=== PATIENT | male | born 1975 | race Caucasian/White ===

== ENCOUNTER 2016-09-17 20:38 | Emergency (ER) | payer MEDICARE, MEDICAID, OTHER ==
[~2016-09-17] VITALS: Ht 182.9 cm; Wt 110.0 kg
[~2016-09-17 20:38] MED LIST: AMBI10TA PO; LEVO.2 PO; PRAV40 PO; SERT100 PO; TRAZ50TA78 PO; XANA2TAB2 PO
[2016-09-17 20:55] VITALS: BP 130/92; PULSE 80; RESP 18; TEMP 99; O2SAT 96
--- NOTE | 2016-09-17 21:15 | PD ---
HPI Chief Complaint: Psychiatric Symptoms Time Seen by Provider: 20:56 Travel History International Travel<30 days: No Contact w/Intl Traveler<30days: No History of Present Illness HPI Patient is a 41-year-old male with history of paranoid schizophrenia, presents to ER with c/o of homicidal ideations. Patient reports that his neighbors is driving him crazy, reports that they keep calling the automobile travel club counselor on him for "noise" as they keep saying that "my music is too loud." Reports that he cannot leave his home as his neighbors keep bothering him. Patient reports that they drove him to call the suicidal hotline today as he has been feeling suicidal and has been cutting himself on his arms. Reports that he has homicidal ideations and wants to kill his neighbors. PFSH Past Medical History Asthma: Yes Anxiety: Yes Depression: Yes Cancer: Yes (THYROID) Cardiovascular Problems: No Diabetes: No Diminished Hearing: No Endocrine: Yes Genitourinary: No Immune Disorder: No Musculoskeletal: Yes Neurologic: Yes Psychiatric: Yes (PARANOID SCHIZO) Reproductive: No Respiratory: Yes Radiation Therapy: Yes Schizophrenia: Yes Thyroid Disease: Yes (THYROIDECTOMY FOR THYROID CANCER) Past Surgical History Endocrine Surgery: Yes (THYROIDECTOMY FOR CANCER) Other Surgery: Yes (THYROIDECTOMY 2007) Social History Alcohol Use: Yes (OCCASIONALLY ) Tobacco Use: Yes Substance Use: Yes Allergies-Medications (Allergen,Severity, Reaction): Coded Allergies: Haldol (Verified Allergy, Intermediate, Joint Pain, 01/13/16) Reported Meds & Prescriptions Reported Meds & Active Scripts Active Synthroid (Levothyroxine Sodium) 200 Mcg Tab 200 Mcg PO DAILY@0600 7 Days Pravastatin Sodium 40 Mg Tab 40 Mg PO HS 7 Days Desyrel (Trazodone HCl) 50 Mg Tab 300 Mg PO HS 7 Days Zoloft (Sertraline HCl) 100 Mg Tab 100 Mg PO DAILY 7 Days Reported Ambien (Zolpidem Tartrate) 10 Mg Tab 10 Mg PO HS Xanax 2 mg (Alprazolam) Alprazolam 2 mg Tab 1 Tab PO Q6H PRN Review of Systems General / Constitutional: No: Fever Eyes: No: Visual changes HENT: No: Headaches Cardiovascular: No: Chest Pain or Discomfort Respiratory: No: Shortness of Breath Gastrointestinal: No: Abdominal Pain Genitourinary: No: Dysuria Musculoskeletal: No: Pain Skin: No Rash Neurologic: No: Weakness Psychiatric: Positive: Depression, Suicidal Ideations, Homicidal Ideation Endocrine: No: Polydipsia Hematologic/Lymphatic: No: Easy Bruising Physical Exam Narrative GENERAL: nad, nontoxic SKIN: Focused skin assessment warm/dry. HEAD: Atraumatic. Normocephalic. EYES: Pupils equal and round. No scleral icterus. No injection or drainage. ENT: No nasal bleeding or discharge. Mucous membranes pink and moist. NECK: Trachea midline. No JVD. CARDIOVASCULAR: Regular rate and rhythm. No murmur appreciated. RESPIRATORY: No accessory muscle use. Clear to auscultation. Breath sounds equal bilaterally. GASTROINTESTINAL: Abdomen soft, non-tender, nondistended. Hepatic and splenic margins not palpable. MUSCULOSKELETAL: No obvious deformities. No clubbing. No cyanosis. No edema. NEUROLOGICAL: Awake and alert. No obvious cranial nerve deficits. Motor grossly within normal limits. Normal speech. PSYCHIATRIC: Appropriate mood and affect; positive for suicidal as well as homicidal ideations Data Data Orders Complete Blood Count With Diff (09/17/16 21:00) Comprehensive Metabolic Panel (09/17/16 21:00) Psych Screen (09/17/16 21:00) Drug Screen, Random Urine (09/17/16 21:00) MDM Medical Decision Making Medical Screen Exam Complete: Yes Emergency Medical Condition: Yes Differential Diagnosis Paranoid schizophrenia, suicidal ideations, homicidal ideations, anxiety disorder Narrative Course Patient is a 41 year old male who presents to ER with complaints of suicidal as well as homicidal ideations. Patient reports that his neighbors are driving him crazy, reports that they keep reporting him to the automobile travel club counselor as they say he is to loud. He reports that he wants to kill them and he has been suppressing his anger by cutting himself. Patient contracts for safety while in the ER. Emma Beltran DO September 17, 2016 21:15
[2016-09-17 22:00] LABS: AMPHETAMINE, URINE NEG (NEG); BARBITURATES, URINE NEG (NEG); COCAINE, URINE NEG (NEG)
[2016-09-17 22:19] VITALS: BP 146/91; PULSE 60; RESP 16; O2SAT 97
[2016-09-17 23:07] LABS: AUTOMATED NEUTROPHIL # 5.3 TH/MM3 (1.8-7.7); BASOPHIL % 0.5 % (0.0-2.0); EOSINOPHIL # 0.1 TH/MM3 (0-0.4); EOSINOPHIL % 1.1 % (0.0-4.0); HEMATOCRIT 43.9 % (39.0-51.0); HEMO FLAGS DIFF FINAL; LYMPH % 17.7 % (9.0-44.0); LYMPHOCYTE # 1.3 TH/MM3 (1.0-4.8); MEAN CELL VOLUME 91.7 FL (80.0-100.0); MEAN CORPUSCULAR HEMOGLOBIN 30.2 PG (27.0-34.0); MEAN CORPUSCULAR HGB CONC 32.9 % (32.0-36.0); MONO % 8.5 % (0.0-8.0); NEUT % 72.2 % (16.0-70.0); PLATELET COUNT 251 TH/MM3 (150-450); RED BLOOD COUNT 4.79 MIL/MM3 (4.50-5.90); RED CELL DISTRIBUTION WIDTH 15.1 % (11.6-17.2); WHITE BLOOD COUNT 7.3 TH/MM3 (4.0-11.0)
[2016-09-17 23:36] LABS: ANION GAP 9 MEQ/L (5-15); BICARBONATE 30.6 MEQ/L (21.0-32.0); BLOOD UREA NITROGEN 20 MG/DL (7-18); CHLORIDE 103 MEQ/L (98-107); GLOMERULAR FILTRATION RATE 48 ML/MIN (>89); POTASSIUM 3.7 MEQ/L (3.5-5.1); SODIUM (NA) 143 MEQ/L (136-145)
[2016-09-17 23:39] LABS: ALKALINE PHOSPHATASE 74 U/L (45-117); ALT (GPT) 27 U/L (12-78); AST (GOT) 25 U/L (15-37); TOTAL BILIRUBIN ADULT 0.4 MG/DL (0.2-1.0)
[2016-09-18 00:13] VITALS: BP 136/81; PULSE 63; RESP 18; O2SAT 96
[2016-09-18] MEDS ORDERED: OLANZapine IM 10 MG VIAL IM ONE (00:45)
[2016-09-18 02:19] VITALS: BP 99/74; PULSE 58; RESP 17; O2SAT 97
[2016-09-18 06:38] VITALS: BP 111/60; PULSE 51; RESP 18; O2SAT 96
[2016-09-18 10:00] VITALS: BP 122/78; PULSE 60; RESP 18
[2016-09-18 14:35] VITALS: BP 114/77; PULSE 55; RESP 18
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
[2016-09-18 16:12] VITALS: BP 122/78; PULSE 60; RESP 18
== END 2016-09-18 18:02 | disposition home or self-care (01) ==
LOC: NED 20:38 → NEPJ 09-18 18:02
DX: F43.10 Post-traumatic stress disorder, unspecified (principal); F41.9 Anxiety disorder, unspecified; F20.3 Undifferentiated schizophrenia; Z72.0 Tobacco use; Z87.09 Personal history of other diseases of the respiratory system; Z86.59 Personal history of other mental and behavioral disorders; Z85.850 Personal history of malignant neoplasm of thyroid; Z87.39 Personal history of other diseases of the musculoskeletal system and connective tissue; Z86.69 Personal history of other diseases of the nervous system and sense organs
CPT/HCPCS: 80053; 80307; 85025; 96372

== ENCOUNTER 2016-10-24 19:03 | Inpatient (IN) | payer OTHER, MEDICARE ==
[~2016-10-24] VITALS: Ht 177.8 cm; Wt 100.0 kg
[2016-10-24 19:06] VITALS: BP 127/87; PULSE 89; RESP 16; TEMP 98.7; O2SAT 99
--- NOTE | 2016-10-24 19:31 | PD ---
Physical Exam Time Seen by Provider: 19:29 Narrative 41yo M c/o mental illness and not taking meds. Denies SI or HI. Has not been eating, sleeping, and has been pacing around the house. Hasn't left the house in weeks. Patient seen in triage. VS reviewed. Awaiting bed placement. Data Data Last Documented VS Vital Signs Date Time Temp Pulse Resp B/P Pulse Ox O2 Delivery O2 Flow Rate FiO2 10/24/16 19:06 98.7 89 16 127/87 99 Room Air MDM Supervised Visit with COURTNEY: Ewa Hoyt Oct 24, 2016 19:31
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
[2016-10-24 22:54] LABS: AUTOMATED NEUTROPHIL # 8.1 TH/MM3 (1.8-7.7); BASOPHIL # 0.1 TH/MM3 (0-0.2); BASOPHIL % 0.9 % (0.0-2.0); EOSINOPHIL # 0.2 TH/MM3 (0-0.4); EOSINOPHIL % 1.9 % (0.0-4.0); HEMATOCRIT 47.7 % (39.0-51.0); HEMO FLAGS DIFF FINAL; LYMPH % 18.2 % (9.0-44.0); MEAN CELL VOLUME 89.5 FL (80.0-100.0); MEAN CORPUSCULAR HEMOGLOBIN 30.5 PG (27.0-34.0); MEAN CORPUSCULAR HGB CONC 34.1 % (32.0-36.0); MONO % 6.6 % (0.0-8.0); NEUT % 72.4 % (16.0-70.0); PLATELET COUNT 226 TH/MM3 (150-450); RED BLOOD COUNT 5.33 MIL/MM3 (4.50-5.90); WHITE BLOOD COUNT 11.2 TH/MM3 (4.0-11.0)
[2016-10-24 23:20] LABS: ALKALINE PHOSPHATASE 92 U/L (45-117); FREE T4 0.28 NG/DL (0.76-1.46); TOTAL BILIRUBIN ADULT 0.4 MG/DL (0.2-1.0)
[2016-10-24 23:22] LABS: BLOOD, URINE SMALL (NEG); COMMENT (UR) CULT NOT INDICATED; CULTURE IF INDICATED CULT NOT INDICATED; GLUCOSE,URINE NEG (NEG); KETONE, URINE NEG (NEG); MUCUS URINE FEW /lpf (OCC); NITRITE,URINE NEG (NEG); URINE COLOR YELLOW (YELLW/STRAW)
[2016-10-24 23:23] LABS: AMPHETAMINE, URINE NEG (NEG); BARBITURATES, URINE NEG (NEG); COCAINE, URINE NEG (NEG)
[2016-10-24 23:57] LABS: ANION GAP 9 MEQ/L (5-15); AST (GOT) 33 U/L (15-37); BLOOD UREA NITROGEN 20 MG/DL (7-18); CHLORIDE 100 MEQ/L (98-107); GLOMERULAR FILTRATION RATE 50 ML/MIN (>89); SODIUM (NA) 135 MEQ/L (136-145)
[2016-10-25 00:02] LABS: ACETAMINOPHEN LESS THAN 2.0 MCG/ML (10.0-30.0); POTASSIUM 4.3 MEQ/L (3.5-5.1)
[2016-10-25 00:19] LABS: ALT (GPT) 80 U/L (12-78)
[2016-10-25] MEDS ORDERED: LEVOTHYROXINE SODIUM 200 MCG TAB PO ONE (01:00)
[2016-10-25 10:50] VITALS: BP 147/99; PULSE 54; RESP 18; TEMP 98.6; O2SAT 96
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
[2016-10-25] MEDS ORDERED: ALUMINUM/MAGNESIUM/SIMETH 30 ML CUP PO PRN (17:15)
[2016-10-25] MEDS ORDERED: MAGNESIUM HYDROXIDE SUSP 30 ML CUP PO PRN (17:15)
[2016-10-25] MEDS: ACETAMINOPHEN 325 MG TAB PO PRN (17:46)
[2016-10-25 18:10] VITALS: BP 130/94; PULSE 68; RESP 18; TEMP 97.5; O2SAT 98
[2016-10-25] MEDS ORDERED: LOVA40TA PO (18:31)
[2016-10-25] MEDS ORDERED: DIAZ5TAB PO (18:31)
[2016-10-25] MEDS ORDERED: ZETI10TA5 PO (18:31)
[2016-10-25] MEDS ORDERED: SERT-129 PO (18:31)
[2016-10-25] MEDS ORDERED: LEVO200T4 PO (18:31)
[2016-10-25] MEDS ORDERED: SYMB80AE INH (18:31)
[2016-10-25] MEDS ORDERED: ALBUAER3 INH (18:31)
[2016-10-25] MEDS ORDERED: ALPR2TAB3 PO (18:31)
[2016-10-26 06:01] VITALS: BP 126/87; PULSE 59; RESP 16; TEMP 98.1; O2SAT 97
[2016-10-26 10:09] LABS: ANION GAP 11 MEQ/L (5-15); BLOOD UREA NITROGEN 18 MG/DL (7-18); CHLORIDE 96 MEQ/L (98-107); GLOMERULAR FILTRATION RATE 47 ML/MIN (>89); HDL CHOLESTEROL 29.1 MG/DL (40.0-60.0); SODIUM (NA) 133 MEQ/L (136-145)
[2016-10-26] MEDS ORDERED: ALBUTEROL SULFATE 90 MCG/ACT HFA 8 GM INHALER INH PRN (10:30)
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
[2016-10-26] MEDS ORDERED: busPIRone HCL 10 MG TAB PO SCH (11:00)
[2016-10-26] MEDS: THIOTHIXENE 1 MG CAP PO SCH ×2 (13:00→18:00)
[2016-10-26] MEDS: busPIRone HCL 10 MG TAB PO SCH ×4 (13:41→21:59)
[2016-10-26] MEDS: DIAZEPAM 2 MG TAB PO SCH ×2 (13:41→18:21)
[2016-10-26] MEDS ORDERED: hydrOXYzine HCL 50 MG TAB PO PRN (13:45)
[2016-10-26] MEDS ORDERED: BENZTROPINE MESYLATE 2 MG/2 ML VIAL IM PRN (13:45)
[2016-10-26] MEDS ORDERED: BENZTROPINE MESYLATE 1 MG TAB PO PRN (13:45)
[2016-10-26] MEDS ORDERED: diphenhydrAMINE HCL 50 MG CAP PO PRN (13:45)
[2016-10-26 15:45] LABS: HEMOGLOBIN A1a 1.2 %; HEMOGLOBIN A1b 1.9 %; HEMOGLOBIN Ao 84.2 %; HEMOGLOBIN LA1C 2.3 %; HEMOGLOBIN P3 3.7 %
[2016-10-26 17:00] VITALS: BP 121/63; PULSE 56; RESP 16; TEMP 98.4; O2SAT 97
[2016-10-26] MEDS: BUDESONIDE-FORMOTEROL 80/4.5 MCG INHALER INH SCH (21:00)
[2016-10-27] MEDS: ACETAMINOPHEN 325 MG TAB PO PRN ×2 (01:44→09:30)
[2016-10-27] MEDS: busPIRone HCL 10 MG TAB PO SCH ×6 (06:00→21:30)
[2016-10-27 06:17] VITALS: BP 139/97; PULSE 65; RESP 18; TEMP 97.6; O2SAT 98
[2016-10-27] MEDS: EZETIMIBE 10 MG TAB PO SCH (08:33)
[2016-10-27] MEDS: PRAVASTATIN SOD 40 MG TAB PO SCH (08:33)
[2016-10-27] MEDS: SERTRALINE HCL 100 MG TAB PO SCH (08:33)
[2016-10-27] MEDS: LEVOTHYROXINE SODIUM 200 MCG TAB PO SCH (08:33)
[2016-10-27] MEDS: DIAZEPAM 2 MG TAB PO SCH ×3 (08:33→17:05)
[2016-10-27] MEDS: THIOTHIXENE 1 MG CAP PO SCH ×4 (09:00→17:05)
[2016-10-27] MEDS: BUDESONIDE-FORMOTEROL 80/4.5 MCG INHALER INH SCH ×2 (13:28→21:30)
--- NOTE | 2016-10-27 16:01 | HHI.PYPN ---
Subjective Remarks Patient was seen and case discussed with nursing. Patient is pleasant and cooperative with exam. Per nursing he enjoys meditating in the hallway to manage his hallucinations. During the interview patient is tired, yawning appears flat. Discusses his voices as spirituality a positive tone. Not command. Denies suicidal ideations or plan. Some paranoia where his ex- girlfriend is stalking him on the Internet. Compliant with his medications and tolerating it well. Behaving well on the unit today per nursing Objective Alert: Yes [place]: Person (ox4), Place Mood: Depressed Affect: Flat Memory Intact: Comment (not impaired) Hallucinations: Auditory (spirituality) Delusions: Yes Delusion Type: Paranoid Suicidal: Ideation (deneis) Homicidal: Ideation (thoughts of harming neighbors and adding acid to the pool) Insight/Judgment Poor Vitals/IOs Vital Signs Date Time Temp Pulse Resp B/P Pulse Ox O2 Delivery O2 Flow Rate FiO2 10/27/16 11:14 18 10/27/16 06:17 97.6 65 139/97 98 10/25/16 10:50 Room Air Assessment & Plan Problem List: (1) Schizophrenia ICD Code: F20.9 Assessment & Plan Continue current treatment plan Justification for Cont. Inpt. Patient will decompensate in a less restrictive setting Request HC Surrog/Guard Advoc?: No Problem Qualifiers (1) Schizophrenia: Qualified Code: F20.0 - Paranoid schizophrenia Adam Torres DO Oct 27, 2016 16:01
--- NOTE | 2016-10-27 16:48 | PD.CONS ---
History of Present Illness Service family med Consult Requested By psych Reason for Consult hyperlipidemia and weight loss Primary Care Physician Jeff Valenzuela DO Diagnoses: (1) Hypothyroidism (2) Hyperlipemia (3) Weight loss Past Family Social History Allergies: Coded Allergies: Haldol (Verified Allergy, Intermediate, Joint Pain, 10/25/16) Physical Exam Vital Signs Vital Signs Date Time Temp Pulse Resp B/P Pulse Ox O2 Delivery O2 Flow Rate FiO2 10/27/16 11:14 18 10/27/16 06:17 97.6 65 18 139/97 98 10/26/16 17:00 98.4 56 16 121/63 97 Physical Exam GENERAL: This is a well-nourished, well-developed patient, in no apparent distress. SKIN: No rashes, ecchymoses or lesions. Cool and dry. HEAD: Atraumatic. Normocephalic. No temporal or scalp tenderness. EYES: Pupils equal round and reactive. Extraocular motions intact. No scleral icterus. No injection or drainage. ENT: Nose without bleeding, purulent drainage or septal hematoma. Throat without erythema, tonsillar hypertrophy or exudate. Uvula midline. Airway patent. NECK: Trachea midline. No JVD or lymphadenopathy. Supple, nontender, no meningeal signs. CARDIOVASCULAR: Regular rate and rhythm without murmurs, gallops, or rubs. RESPIRATORY: Clear to auscultation. Breath sounds equal bilaterally. No wheezes , rales, or rhonchi. GASTROINTESTINAL: Abdomen soft, non-tender, nondistended. No hepato-splenomegaly , or palpable masses. No guarding. MUSCULOSKELETAL: Extremities without clubbing, cyanosis, or edema. No joint tenderness, effusion, or edema noted. No calf tenderness. Negative Homans sign bilaterally. NEUROLOGICAL: Awake and alert. Cranial nerves II through XII intact. Motor and sensory grossly within normal limits. Five out of 5 muscle strength in all muscle groups. Normal speech. Laboratory will asses lipid tyroid and hemoocult Result Diagram: 10/24/16 2522 10/26/16 0850 Assessment and Plan Problem List: (1) Hyperlipemia Status: Acute Plan: add lipitor zetia and fenofibrate (2) Weight loss Status: Acute Plan: ck prealbumin and hemoccult (3) Elevated TSH Status: Acute Plan: ck thyroid fx Assessment and Plan add anti lipid meds asses nutritional status ck for gi bleed Discussed Condition With patient and nursing Problem Qualifiers (1) Hypothyroidism: Qualified Code: E03.9 - Hypothyroidism, unspecified type (2) Hyperlipemia: Qualified Code: E78.2 - Mixed hyperlipidemia Jeff Valenzuela DO Oct 27, 2016 16:48
[2016-10-27 17:00] VITALS: BP 134/90; PULSE 73; RESP 19; TEMP 97.9; O2SAT 95
[2016-10-28 05:58] VITALS: BP 124/93; PULSE 78; RESP 17; TEMP 97.8; O2SAT 96
[2016-10-28] MEDS: LEVOTHYROXINE SODIUM 200 MCG TAB PO SCH (06:04)
[2016-10-28] MEDS: busPIRone HCL 10 MG TAB PO SCH ×6 (06:05→21:00)
[2016-10-28] MEDS: FENOFIBRATE 48 MG TAB PO SCH (08:35)
[2016-10-28] MEDS: ATORVASTATIN 20 MG TAB PO SCH (08:35)
[2016-10-28] MEDS: EZETIMIBE 10 MG TAB PO SCH (08:35)
[2016-10-28] MEDS: SERTRALINE HCL 100 MG TAB PO SCH (08:35)
[2016-10-28] MEDS: DIAZEPAM 2 MG TAB PO SCH ×3 (08:35→17:39)
[2016-10-28] MEDS: THIOTHIXENE 1 MG CAP PO SCH ×3 (08:35→17:39)
[2016-10-28] MEDS: BUDESONIDE-FORMOTEROL 80/4.5 MCG INHALER INH SCH ×2 (08:38→21:00)
[2016-10-28] MEDS: PRAVASTATIN SOD 40 MG TAB PO SCH (08:39)
[2016-10-28 09:04] LABS: AUTOMATED NEUTROPHIL # 5.1 TH/MM3 (1.8-7.7); BASOPHIL # 0.1 TH/MM3 (0-0.2); BASOPHIL % 0.9 % (0.0-2.0); EOSINOPHIL # 0.3 TH/MM3 (0-0.4); EOSINOPHIL % 3.7 % (0.0-4.0); HEMO FLAGS DIFF FINAL; LYMPH % 28.3 % (9.0-44.0); LYMPHOCYTE # 2.4 TH/MM3 (1.0-4.8); MEAN CELL VOLUME 90.9 FL (80.0-100.0); MEAN CORPUSCULAR HEMOGLOBIN 29.7 PG (27.0-34.0); MEAN CORPUSCULAR HGB CONC 32.7 % (32.0-36.0); MONO % 8.2 % (0.0-8.0); NEUT % 58.9 % (16.0-70.0); PLATELET COUNT 220 TH/MM3 (150-450); RED BLOOD COUNT 5.83 MIL/MM3 (4.50-5.90); RED CELL DISTRIBUTION WIDTH 14.7 % (11.6-17.2); WHITE BLOOD COUNT 8.6 TH/MM3 (4.0-11.0)
[2016-10-28 09:34] LABS: AMYLASE 43 U/L (25-115); ANION GAP 9 MEQ/L (5-15); AST (GOT) 38 U/L (15-37); BICARBONATE 29.2 MEQ/L (21.0-32.0); BLOOD UREA NITROGEN 16 MG/DL (7-18); CHLORIDE 99 MEQ/L (98-107); GLOMERULAR FILTRATION RATE 48 ML/MIN (>89); POTASSIUM 4.5 MEQ/L (3.5-5.1); SODIUM (NA) 137 MEQ/L (136-145)
[2016-10-28 09:38] LABS: ALKALINE PHOSPHATASE 100 U/L (45-117); ALT (GPT) 74 U/L (12-78); FREE T3 1.59 PG/ML (2.18-3.98); HDL CHOLESTEROL 31.7 MG/DL (40.0-60.0); TOTAL BILIRUBIN ADULT 0.7 MG/DL (0.2-1.0)
--- NOTE | 2016-10-28 10:11 | EKG ---
Date Performed: 10/26/2016 Time Performed: 14:00:21 PTAGE: 41 years EKG: SINUS BRADYCARDIA WITH SINUS ARRHYTHMIA ST DEVIATION AND MODERATE T-WAVE ABNORMALITY, CONSI TARIK INFERIOR ISCHEMIA ABNORMAL ECG PREVIOUS TRACING : 12/31/2012 14.01 DOCTOR: Lui Isaacs Interpretating Date/Time 10/28/2016 09:54:35
--- NOTE | 2016-10-28 14:02 | HHI.PR ---
Subjective Remarks resting quietly no abd pain Objective Vital Signs Date Time Temp Pulse Resp B/P Pulse Ox O2 Delivery O2 Flow Rate FiO2 10/28/16 05:58 97.8 78 17 124/93 96 10/27/16 17:00 97.9 73 19 134/90 95 Result Diagram: 10/28/16 0845 10/28/16 0845 Procedures Reported Meds & Active Scripts Active Reported Diazepam 5 Mg Tab 5 Mg PO BID PRN Symbicort Inh (Budesonide/Formoterol Fumarate) 80-4.5 Mcg/Act Aero 1 Puff INH Q12HR Proair Hfa 8.5 GM Inh (Albuterol Sulfate) 90 Mcg/Act Aer 2 Puff INH Q4-6H PRN 108 mcg/actuation Alprazolam 2 Mg Tab 2 Mg PO TID PRN Sertraline (Sertraline HCl) 100 Mg Tab 100 Mg PO DAILY Levothyroxine (Levothyroxine Sodium) 200 Mcg Tab 200 Mcg PO DAILY Lovastatin 40 Mg Tab 40 Mg PO DAILY Zetia (Ezetimibe) 10 Mg Tab 10 Mg PO DAILY Other Results cholesterol and triglycerides improved Medications and IVs Inpatient Medications Acetaminophen (Tylenol) 650 mg Q4H PRN PO Pain 1-5 or Temp >101F Last administered on 10/27/16 09:30; Start 10/25/16 at 17:15 Al Hydrox/Mg Hydrox/Simethicone (Mag-Al Plus Susp Liq) 30 ml Q6H PRN PO DYSPEPSIA; Start 10/25/16 at 17:15 Albuterol Sulfate (Proair Hfa Inh) 2 puff Q4H PRN INH SHORTNESS OF BREATH; Start 10/26/16 at 10:30 Atorvastatin Calcium (Lipitor) 20 mg DAILY PO Last administered on 10/28/16 08 :35; Start 10/28/16 at 09:00 Benztropine Mesylate (Cogentin Inj) 1 mg Q12HR PRN IM EPS, unable to take PO; Start 10/26/16 at 13:45 Benztropine Mesylate (Cogentin) 1 mg Q12HR PRN PO EXTRA PYRAMIDAL SYMPTOMS; Start 10/26/16 at 13:45 Budesonide/ Formoterol Fumarate (Symbicort 80-4.5 Mcg Inh) 1 puff Q12HR INH Last administered on 10/28/16 08:38; Start 10/26/16 at 21:00 Buspirone HCl (Buspar) 10 mg TID@15,18,21 PO Last administered on 10/27/16 21: 30; Start 10/26/16 at 15:00 Diazepam (Valium) 2 mg TID PO Last administered on 10/28/16 12:11; Start at 13:00 Diphenhydramine HCl (Benadryl) 50 mg HS PRN PO INSOMNIA; Start 10/26/16 at 13:45 EZETIMIBE (Zetia) 10 mg DAILY PO Last administered on 10/28/16 08:35; Start at 09:00 Fenofibrate (Tricor) 48 mg DAILY PO Last administered on 10/28/16 08:35; Start 10/28/16 at 09:00 Hydroxyzine HCl (Atarax) 50 mg Q6H PRN PO ANXIETY; Start 10/26/16 at 13:45 Levothyroxine Sodium (Synthroid) 200 mcg DAILY@0600 PO Last administered on 06:04; Start 10/27/16 at 06:00 Magnesium Hydroxide (Milk Of Magnesia Liq) 30 ml DAILY PRN PO CONSTIPATION; Start 10/25/16 at 17:15 Pravastatin Sodium (Pravachol) 40 mg DAILY PO Last administered on 10/28/16 08 :39; Start 10/27/16 at 09:00 Sertraline HCl (Zoloft) 100 mg DAILY PO Last administered on 10/28/16 08:35; Start 10/27/16 at 09:00 Thiothixene (Navane) 2 mg TID PO Last administered on 10/28/16 12:11; Start at 13:00 Assessment and Plan Problem List: (1) Hyperlipemia Status: Acute Plan: add lipitor zetia and fenofibrate (2) Weight loss Status: Acute Plan: ck prealbumin and hemoccult (3) Elevated TSH Status: Acute Plan: ck thyroid fx t3 t4 both low will start thyroid replacement Assessment and Plan add anti lipid meds asses nutritional status ck for gi bleed Discussed Condition With patient and nursing Problem Qualifiers (1) Hyperlipemia: Qualified Code: E78.2 - Mixed hyperlipidemia Jeff Valenzuela DO Oct 28, 2016 14:02
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
[2016-10-28 20:05] VITALS: BP 131/68; PULSE 61; RESP 16; TEMP 97.3; O2SAT 95
[2016-10-29 05:48] VITALS: BP 120/77; PULSE 86; RESP 17; TEMP 97.7; O2SAT 95
[2016-10-29] MEDS: busPIRone HCL 10 MG TAB PO SCH ×4 (06:00→15:00)
[2016-10-29] MEDS: LEVOTHYROXINE SODIUM 200 MCG TAB PO SCH (06:00)
[2016-10-29] MEDS: THIOTHIXENE 1 MG CAP PO SCH ×2 (08:19→12:10)
[2016-10-29] MEDS: FENOFIBRATE 48 MG TAB PO SCH (08:20)
[2016-10-29] MEDS: PRAVASTATIN SOD 40 MG TAB PO SCH (08:20)
[2016-10-29] MEDS: DIAZEPAM 2 MG TAB PO SCH ×2 (08:20→12:10)
[2016-10-29] MEDS: SERTRALINE HCL 100 MG TAB PO SCH (08:21)
[2016-10-29] MEDS: EZETIMIBE 10 MG TAB PO SCH (08:21)
[2016-10-29] MEDS: ATORVASTATIN 20 MG TAB PO SCH (08:24)
[2016-10-29] MEDS: BUDESONIDE-FORMOTEROL 80/4.5 MCG INHALER INH SCH (09:00)
[2016-10-29] MEDS ORDERED: THYROID 30 MG TAB PO SCH (09:00)
[2016-10-29] MEDS ORDERED: THIO1CAP PO (09:20)
[2016-10-29] MEDS ORDERED: BUSP10TA PO (09:20)
[2016-10-29] MEDS ORDERED: SERT-129 PO (09:20)
[2016-10-29] MEDS ORDERED: DIAZ2 PO (09:20)
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
--- NOTE | 2016-10-29 16:49 | HHI.PR ---
Subjective Remarks resting quietly no abd pain for dc home today Objective Vital Signs Date Time Temp Pulse Resp B/P Pulse Ox O2 Delivery O2 Flow Rate FiO2 10/29/16 05:48 97.7 86 17 120/77 95 10/28/16 20:05 97.3 61 16 131/68 95 Result Diagram: 10/28/16 0845 10/28/16 0845 Procedures Reported Meds & Active Scripts Active Reported Diazepam 5 Mg Tab 5 Mg PO BID PRN Symbicort Inh (Budesonide/Formoterol Fumarate) 80-4.5 Mcg/Act Aero 1 Puff INH Q12HR Proair Hfa 8.5 GM Inh (Albuterol Sulfate) 90 Mcg/Act Aer 2 Puff INH Q4-6H PRN 108 mcg/actuation Alprazolam 2 Mg Tab 2 Mg PO TID PRN Sertraline (Sertraline HCl) 100 Mg Tab 100 Mg PO DAILY Levothyroxine (Levothyroxine Sodium) 200 Mcg Tab 200 Mcg PO DAILY Lovastatin 40 Mg Tab 40 Mg PO DAILY Zetia (Ezetimibe) 10 Mg Tab 10 Mg PO DAILY Objective Remarks GENERAL: SKIN: Warm and dry. HEAD: Atraumatic. Normocephalic. EYES: Pupils equal and round. No scleral icterus. No injection or drainage. ENT: No nasal bleeding or discharge. Mucous membranes pink and moist. NECK: Trachea midline. No JVD. CARDIOVASCULAR: Regular rate and rhythm. RESPIRATORY: No accessory muscle use. Clear to auscultation. Breath sounds equal bilaterally. GASTROINTESTINAL: Abdomen soft, non-tender, nondistended. Hepatic and splenic margins not palpable. MUSCULOSKELETAL: Extremities without clubbing, cyanosis, or edema. No obvious deformities. NEUROLOGICAL: Awake and alert. No obvious cranial nerve deficits. Motor grossly within normal limits. Five out of 5 muscle strength in the arms and legs. Normal speech. PSYCHIATRIC: Appropriate mood and affect; insight and judgment normal. Medications and IVs Inpatient Medications Acetaminophen (Tylenol) 650 mg Q4H PRN PO Pain 1-5 or Temp >101F Last administered on 10/27/16t 09:30; Start 10/25/16 at 17:15 Al Hydrox/Mg Hydrox/Simethicone (Mag-Al Plus Susp Liq) 30 ml Q6H PRN PO DYSPEPSIA; Start 10/25/16 at 17:15 Albuterol Sulfate (Proair Hfa Inh) 2 puff Q4H PRN INH SHORTNESS OF BREATH; Start 10/26/16 at 10:30 Atorvastatin Calcium (Lipitor) 20 mg DAILY PO Last administered on 10/29/16 08 :24; Start 10/28/16 at 09:00 Benztropine Mesylate (Cogentin Inj) 1 mg Q12HR PRN IM EPS, unable to take PO; Start 10/26/16 at 13:45 Benztropine Mesylate (Cogentin) 1 mg Q12HR PRN PO EXTRA PYRAMIDAL SYMPTOMS; Start 10/26/16 at 13:45 Budesonide/ Formoterol Fumarate (Symbicort 80-4.5 Mcg Inh) 1 puff Q12HR INH Last administered on 10/29/16 09:00; Start 10/26/16 at 21:00 Buspirone HCl (Buspar) 10 mg TID@15,18,21 PO Last administered on 10/29/16 15: 00; Start 10/26/16 at 15:00 Diazepam (Valium) 2 mg TID PO Last administered on 10/29/16 12:10; Start at 13:00 Diphenhydramine HCl (Benadryl) 50 mg HS PRN PO INSOMNIA; Start 10/26/16 at 13:45 EZETIMIBE (Zetia) 10 mg DAILY PO Last administered on 10/29/16 08:21; Start at 09:00 Fenofibrate (Tricor) 48 mg DAILY PO Last administered on 10/29/16 08:20; Start 10/28/16 at 09:00 Hydroxyzine HCl (Atarax) 50 mg Q6H PRN PO ANXIETY; Start 10/26/16 at 13:45 Levothyroxine Sodium (Synthroid) 200 mcg DAILY@0600 PO Last administered on 06:00; Start 10/27/16 at 06:00; Stop 10/29/16 at 13:31; Status DC Magnesium Hydroxide (Milk Of Magnesia Liq) 30 ml DAILY PRN PO CONSTIPATION; Start 10/25/16 at 17:15 Pravastatin Sodium (Pravachol) 40 mg DAILY PO Last administered on 10/29/16 08 :20; Start 10/27/16 at 09:00 Sertraline HCl (Zoloft) 100 mg DAILY PO Last administered on 10/29/16 08:21; Start 10/27/16 at 09:00 Thiothixene (Navane) 2 mg TID PO Last administered on 10/29/16 12:10; Start at 13:00 Thyroid ([place] Thyroid) 30 mg DAILY PO Last administered on 10/29/16 08:18; Start 10/29/16 at 09:00 Assessment and Plan Problem List: (1) Hyperlipemia Status: Acute Plan: add lipitor zetia and fenofibrate (2) Weight loss Status: Acute Plan: ck prealbumin and hemoccult (3) Elevated TSH Status: Acute Plan: ck thyroid fx t3 t4 both low will start thyroid replacement Assessment and Plan ok dc home fu hemoccult as an op no abd pain dx synthroid add armour add lipitor cd pravastatin fu lab cbc cmp lipid thyroid panel in 2 weeks fu grw 3 weeks Problem Qualifiers (1) Hyperlipemia: Qualified Code: E78.2 - Mixed hyperlipidemia Jeff Valenzuela DO Oct 29, 2016 16:49
== END 2016-10-29 17:30 | disposition home or self-care (01) | DRG 885 ==
LOC: NEPD 19:03 → NEDA 10-25 16:45 → H270 10-25 17:50
PROVIDERS: ADMIT Psychiatry & Neurology Psychiatry; ATTEND Psychiatry & Neurology Psychiatry
DX: F20.0 Paranoid schizophrenia (principal); Z91.14 Patient's other noncompliance with medication regimen; E03.9 Hypothyroidism, unspecified; G89.29 Other chronic pain; R45.84 Anhedonia; R35.0 Frequency of micturition; M54.9 Dorsalgia, unspecified; J45.909 Unspecified asthma, uncomplicated; R63.4 Abnormal weight loss; E78.2 Mixed hyperlipidemia; Z91.5 Personal history of self-harm; Z87.891 Personal history of nicotine dependence
CPT/HCPCS: 80048; 80053; 80061; 80307; 81001; 82150; 82272; 83036; 83690; 84439; 84443; 84481; 85025; 93005

== ENCOUNTER 2017-01-18 07:53 | Inpatient (IN) | payer OTHER, MEDICARE ==
[~2017-01-18] VITALS: Ht 175.3 cm; Wt 105.3 kg
[~2017-01-18 07:53] MED LIST changes: +ALBUAER3 INH; -AMBI10TA PO; +BUSP10TA PO; +DIAZ2 PO; -LEVO.2 PO; +LEVO200T4 PO; +LOVA40TA PO; -PRAV40 PO; +SERT-129 PO; -SERT100 PO; +SYMB80AE INH; +THIO1CAP PO; -TRAZ50TA78 PO; -XANA2TAB2 PO; +ZETI10TA5 PO
[2017-01-18 07:56] VITALS: BP 137/63; PULSE 102; RESP 18; TEMP 98
[2017-01-18] MEDS ORDERED: DEPA500T3 PO (08:18)
[2017-01-18 08:38] LABS: AUTOMATED NEUTROPHIL # 5.6 TH/MM3 (1.8-7.7); BASOPHIL # 0.1 TH/MM3 (0-0.2); BASOPHIL % 0.8 % (0.0-2.0); EOSINOPHIL # 0.3 TH/MM3 (0-0.4); EOSINOPHIL % 3.6 % (0.0-4.0); HEMATOCRIT 47.8 % (39.0-51.0); HEMO FLAGS DIFF FINAL; LYMPHOCYTE # 2.1 TH/MM3 (1.0-4.8); MEAN CELL VOLUME 90.3 FL (80.0-100.0); MEAN CORPUSCULAR HEMOGLOBIN 30.4 PG (27.0-34.0); MEAN CORPUSCULAR HGB CONC 33.6 % (32.0-36.0); MONO % 6.7 % (0.0-8.0); NEUT % 64.9 % (16.0-70.0); PLATELET COUNT 243 TH/MM3 (150-450); RED CELL DISTRIBUTION WIDTH 15.1 % (11.6-17.2); WHITE BLOOD COUNT 8.6 TH/MM3 (4.0-11.0)
[2017-01-18 08:52] LABS: ALKALINE PHOSPHATASE 96 U/L (45-117); TOTAL BILIRUBIN ADULT 0.4 MG/DL (0.2-1.0)
[2017-01-18 09:00] LABS: ALT (GPT) 24 U/L (12-78); ANION GAP 7 MEQ/L (5-15); AST (GOT) 30 U/L (15-37); BICARBONATE 26.8 MEQ/L (21.0-32.0); BLOOD UREA NITROGEN 23 MG/DL (7-18); CHLORIDE 103 MEQ/L (98-107); GLOMERULAR FILTRATION RATE 48 ML/MIN (>89); SODIUM (NA) 137 MEQ/L (136-145)
--- NOTE | 2017-01-18 09:00 | PD ---
HPI Chief Complaint: Psychiatric Symptoms Time Seen by Provider: 08:20 Travel History International Travel<30 days: No Contact w/Intl Traveler<30days: No Traveled to known affect area: No History of Present Illness HPI Patient is a 41-year-old male who presents to emergency room with complaints of suicidal and homicidal ideation. Patient reports that he is a paranoid schizophrenic, reports that he has always thought of committing suicide as well as hurting other people. He reports concern today as he almost snapped his nieces neck. Patient with no active plan for suicide. Patient is on multiple psych medications, reports that he has been compliant with his medications. PFS Past Medical History Arthritis: No Asthma: Yes Anxiety: Yes Depression: Yes Heart Rhythm Problems: No Cancer: No (THYROID) Cardiovascular Problems: No High Cholesterol: Yes (ON MULT MEDS DUE TO HIGH CHOLESTEROL) Congestive Heart Failure: No COPD: No Cerebrovascular Accident: No Diabetes: No Diminished Hearing: No Endocrine: Yes Gastrointestinal Disorders: No (02/2012 QUESTIONABLE GIB) GERD: No Genitourinary: No Headaches: No Hiatal Hernia: No Immune Disorder: No Implanted Vascular Access Dvce: No Kidney Stones: No Musculoskeletal: Yes Neurologic: No Psychiatric: Yes Reproductive: No Respiratory: No Immunizations Current: Yes Migraines: No Radiation Therapy: Yes Renal Failure: No Schizophrenia: Yes Seizures: No Sleep Apnea: No Thyroid Disease: Yes Ulcer: No Past Surgical History Abdominal Surgery: No AICD: No Cardiac Surgery: No Ear Surgery: No Endocrine Surgery: No Eye Surgery: No Genitourinary Surgery: No Gynecologic Surgery: No Neurologic Surgery: No Oral Surgery: No Pacemaker: No Thoracic Surgery: No Other Surgery: Yes (THYROIDECTOMY CANCER ) Social History Alcohol Use: No Tobacco Use: No Substance Use: Yes (MULT DIFFICULT DRUGS - SELF MEDICATES) Allergies-Medications (Allergen,Severity, Reaction): Coded Allergies: haloperidol (Unverified Allergy, Intermediate, Joint Pain, 01/01/17) Reported Meds & Prescriptions Reported Meds & Active Scripts Active Valium (Diazepam) 2 Mg Tab 2 Mg PO TID 0 Days Order to update med rec only. Pt reports adequate supply at home. Buspirone (Buspirone HCl) 10 Mg Tab 10 Mg PO DIRECTED 10 Days Take 10mg PO 6 times daily. Sertraline (Sertraline HCl) 100 Mg Tab 100 Mg PO DAILY 15 Days Reported Depakote ER (Divalproex Sodium) 500 Mg Sharon 1,500 Mg PO DAILY Symbicort Inh (Budesonide/Formoterol Fumarate) 80-4.5 Mcg/Act Aero 1 Puff INH Q12HR Proair Hfa 8.5 GM Inh (Albuterol Sulfate) 90 Mcg/Act Aer 2 Puff INH Q4-6H PRN 108 mcg/actuation Levothyroxine (Levothyroxine Sodium) 200 Mcg Tab 200 Mcg PO DAILY Lovastatin 40 Mg Tab 40 Mg PO DAILY Zetia (Ezetimibe) 10 Mg Tab 10 Mg PO DAILY Review of Systems General / Constitutional: No: Fever Eyes: No: Visual changes HENT: No: Headaches Cardiovascular: No: Chest Pain or Discomfort Respiratory: No: Shortness of Breath Gastrointestinal: No: Abdominal Pain Genitourinary: No: Dysuria Musculoskeletal: No: Pain Skin: No Rash Neurologic: No: Weakness Psychiatric: Positive: Anxiety, Depression, Suicidal Ideations, Homicidal Ideation Endocrine: No: Polydipsia Hematologic/Lymphatic: No: Easy Bruising Physical Exam Narrative GENERAL: NAD SKIN: Focused skin assessment warm/dry. HEAD: Atraumatic. Normocephalic. EYES: Pupils equal and round. No scleral icterus. No injection or drainage. ENT: No nasal bleeding or discharge. Mucous membranes pink and moist. NECK: Trachea midline. No JVD. CARDIOVASCULAR: Regular rate and rhythm. No murmur appreciated. RESPIRATORY: No accessory muscle use. Clear to auscultation. Breath sounds equal bilaterally. GASTROINTESTINAL: Abdomen soft, non-tender, nondistended. Hepatic and splenic margins not palpable. MUSCULOSKELETAL: No obvious deformities. No clubbing. No cyanosis. No edema. NEUROLOGICAL: Awake and alert. . Normal speech. PSYCHIATRIC: Patient with suicidal and homicidal ideations. Data Data Last Documented VS Vital Signs Date Time Temp Pulse Resp B/P (MAP) Pulse Ox O2 Delivery O2 Flow Rate FiO2 01/18/17 07:56 98.0 102 18 137/63 (87) Orders Orders Complete Blood Count With Diff (01/18/17 08:10) Comprehensive Metabolic Panel (01/18/17 08:10) Psych Screen (01/18/17 08:10) Drug Screen, Random Urine (01/18/17 08:10) Alcohol (Ethanol) (01/18/17 08:10) Salicylates (Aspirin) (01/18/17 08:10) Tylenol (Acetaminophen) (01/18/17 08:10) Valproic Acid (Depakene) (01/18/17 08:15) Labs Laboratory Tests Test 01/18/17 08:15 White Blood Count 8.6 TH/MM3 Red Blood Count 5.30 MIL/MM3 Hemoglobin 16.1 GM/DL Hematocrit 47.8 % Mean Corpuscular Volume 90.3 FL Mean Corpuscular Hemoglobin 30.4 PG Mean Corpuscular Hemoglobin Concent 33.6 % Red Cell Distribution Width 15.1 % Platelet Count 243 TH/MM3 Mean Platelet Volume 8.1 FL Neutrophils (%) (Auto) 64.9 % Lymphocytes (%) (Auto) 24.0 % Monocytes (%) (Auto) 6.7 % Eosinophils (%) (Auto) 3.6 % Basophils (%) (Auto) 0.8 % Neutrophils # (Auto) 5.6 TH/MM3 Lymphocytes # (Auto) 2.1 TH/MM3 Monocytes # (Auto) 0.6 TH/MM3 Eosinophils # (Auto) 0.3 TH/MM3 Basophils # (Auto) 0.1 TH/MM3 CBC Comment DIFF FINAL Differential Comment Total Protein 7.7 GM/DL Alkaline Phosphatase 96 U/L Total Bilirubin 0.4 MG/DL Salicylates Level LESS THAN 1.7 MG/DL Valproic Acid (Depakene) Level 30 MCG/ML MDM Medical Decision Making Medical Screen Exam Complete: Yes Emergency Medical Condition: Yes Interpretation(s) Vital Signs Date Time Temp Pulse Resp B/P (MAP) Pulse Ox O2 Delivery O2 Flow Rate FiO2 01/18/17 07:56 98.0 102 18 137/63 (87) Differential Diagnosis Differential includes paranoid hernia, PTSD, drug abuse, anxiety disorder Narrative Course 41-year-old male who presents to emergency room with complaints of suicidal and homicidal ideation. Patient was placed under [place] act upon arrival to the emergency room. Patient contracts for safety this time, once medically cleared, will have him see psych. Emma Beltran DO Jan 18, 2017 09:00
[2017-01-18 09:04] LABS: ACETAMINOPHEN LESS THAN 2.0 MCG/ML (10.0-30.0); ALCOHOL LESS THAN 3 MG/DL (0-5); POTASSIUM 4.5 MEQ/L (3.5-5.1)
[2017-01-18 11:00] VITALS: BP 164/87; PULSE 98; RESP 16; O2SAT 97
[2017-01-18 14:00] VITALS: BP 158/74; PULSE 88; RESP 16; O2SAT 97
[2017-01-18] MEDS ORDERED: IBUPROFEN 600 MG TAB PO ONE ×2 (14:00→15:00)
[2017-01-18] MEDS ORDERED: LORazepam 0.5 MG TAB PO PRN (15:30)
[2017-01-18] MEDS ORDERED: diphenhydrAMINE HCL 50 MG CAP PO PRN (15:30)
[2017-01-18] MEDS ORDERED: MAGNESIUM HYDROXIDE SUSP 30 ML CUP PO PRN (15:30)
[2017-01-18] MEDS ORDERED: LORazepam 1 MG TAB PO PRN (15:30)
[2017-01-18] MEDS ORDERED: LORazepam 2 MG/ML VIAL IM PRN ×2 (15:30)
[2017-01-18] MEDS ORDERED: hydrOXYzine HCL 50 MG TAB PO PRN (15:30)
[2017-01-18] MEDS ORDERED: ALUMINUM/MAGNESIUM/SIMETH 30 ML CUP PO PRN (15:30)
[2017-01-18] MEDS ORDERED: diphenhydrAMINE HCL 50 MG/ML VIAL IM PRN (15:30)
--- NOTE | 2017-01-18 15:46 | PD ---
History of Present Illness Chief Complaint: Psychiatric Symptoms Time Seen by Provider: 15:00 Travel History International Travel<30 Days: No Contact w/Intl Traveler<30days: No Known affected area: No Legal Status Legal Status: Voluntary History of Present Illness: 41-year-old male who presents voluntarily, with multiyear history of schizophrenia and recent suicidal as well as homicidal ideation. Patient reports he has been intermittently compliant with his medications and that he has been treated by his primary care physician on an outpatient basis. However he also admits being fired by his primary care physician recently and he has no psychiatrist. Patient noted to be on benzos, Depakote and buspirone but no antipsychotic medicine. Over the last several days and weeks, he describes increasing depression and irritability. He states he became so irritable he almost snapped the neck of his niece yesterday. He has ongoing suicidal preoccupation and does not feel he can contract for safety. He reports multiple symptoms of depression including depressed mood, anhedonia, social withdrawal, feelings of hopelessness and helplessness, anxiety, diminished self- esteem, sleep disturbance, appetite disturbance, anxiety and what appear to be ideas of reference. PFSH Past Medical History Arthritis: No Asthma: Yes Anxiety: Yes Depression: Yes Heart Rhythm Problems: No Cancer: No (THYROID) Cardiovascular Problems: No High Cholesterol: Yes (ON MULT MEDS DUE TO HIGH CHOLESTEROL) Congestive Heart Failure: No COPD: No Cerebrovascular Accident: No Diabetes: No Diminished Hearing: No Endocrine: Yes Gastrointestinal Disorders: No (02/2012 QUESTIONABLE GIB) GERD: No Genitourinary: No Headaches: No Hiatal Hernia: No Immune Disorder: No Implanted Vascular Access Dvce: No Kidney Stones: No Musculoskeletal: Yes Neurologic: No Psychiatric: Yes Reproductive: No Respiratory: No Immunizations Current: Yes Migraines: No Radiation Therapy: Yes Renal Failure: No Schizophrenia: Yes Seizures: No Sleep Apnea: No Thyroid Disease: Yes Ulcer: No Past Surgical History Abdominal Surgery: No AICD: No Cardiac Surgery: No Ear Surgery: No Endocrine Surgery: No Eye Surgery: No Genitourinary Surgery: No Gynecologic Surgery: No Neurologic Surgery: No Oral Surgery: No Pacemaker: No Thoracic Surgery: No Other Surgery: Yes (THYROIDECTOMY CANCER ) Psychiatric History Psychiatric History Hx Psychiatric Treatment: HX OF Schizophrenia, ADHD, ODD, PTSD ANXIETYHe has received outpatient treatment at [facility] in the past. He currently receives medications from his PCP Dr. Hendrickson. History of Inpatient Treatment: Yes Guns or firearms in home: No Social History Hx Alcohol Use: No Hx Tobacco Use: No Hx Substance Use: Yes (MULT DIFFICULT DRUGS - SELF MEDICATES) Substance Use Type: Alcohol, Marijuana, Nicotine/Cigarettes Other Substances Used: Occasional ETOH, semi-regular marijuana Hx of Substance Use Treatment: Yes Allergies-Medications (Allergen,Severity, Reaction): Coded Allergies: haloperidol (Unverified Allergy, Intermediate, Joint Pain, 01/01/17) Reported Meds & Prescriptions Reported Meds & Active Scripts Active Valium (Diazepam) 2 Mg Tab 2 Mg PO TID 0 Days Order to update med rec only. Pt reports adequate supply at home. Buspirone (Buspirone HCl) 10 Mg Tab 10 Mg PO DIRECTED 10 Days Take 10mg PO 6 times daily. Sertraline (Sertraline HCl) 100 Mg Tab 100 Mg PO DAILY 15 Days Reported Depakote ER (Divalproex Sodium) 500 Mg Sharon 1,500 Mg PO DAILY Symbicort Inh (Budesonide/Formoterol Fumarate) 80-4.5 Mcg/Act Aero 1 Puff INH Q12HR Proair Hfa 8.5 GM Inh (Albuterol Sulfate) 90 Mcg/Act Aer 2 Puff INH Q4-6H PRN 108 mcg/actuation Levothyroxine (Levothyroxine Sodium) 200 Mcg Tab 200 Mcg PO DAILY Lovastatin 40 Mg Tab 40 Mg PO DAILY Zetia (Ezetimibe) 10 Mg Tab 10 Mg PO DAILY Review of Systems Except as stated in HPI: all other systems reviewed are Neg Exam Alert: Yes [place]: Person, Place, Date, Situation Mood: Depressed Affect: Restricted Speech: Clear Eye Contact: Indirect Memory Intact: Immediate, Recent, Remote Hallucinations: Auditory Delusions: Yes Delusion Type: Paranoid Suicidal: Ideation Homicidal: Plan, Ideation Insight/Judgement Impaired in MDM Medical Decision Making Medical Record Reviewed: Yes Assessment/Plan 41-year-old male with multiyear history of schizophrenia and more recent symptoms of depression, suicidality and homicidality. Patient is felt to be at high risk for harming himself and others and is therefore being admitted for evaluation and treatment. This physician has ordered a hospitalist consult as the patient has multiple medical issues including respiratory problems, etc. Also ordered are a CBC and comprehensive metabolic profile. We will investigate whether any infectious or metabolic process is causing or contributing to his depression and homicidal thinking. Additionally, he will receive thyroid stimulating hormone levels and vitamins B-12 and D levels to determine if any deficiency in these areas are causing or contributing to his depression. He will also have an EKG to determine his cardiac conduction status and to determine whether psychotropic medicines are altering his conduction system. This physician spoke with the patient's nurse regarding his recent and remote behavior. Case management will also be involved to obtain further history and assist with disposition planning. Orders Orders Complete Blood Count With Diff (01/18/17 08:10) Comprehensive Metabolic Panel (01/18/17 08:10) Psych Screen (01/18/17 08:10) Drug Screen, Random Urine (01/18/17 08:10) Alcohol (Ethanol) (01/18/17 08:10) Salicylates (Aspirin) (01/18/17 08:10) Tylenol (Acetaminophen) (01/18/17 08:10) Valproic Acid (Depakene) (01/18/17 08:15) Diet Heart Healthy (01/18/17 Lunch) Ibuprofen (Motrin) (01/18/17 15:00) Diet Regular Basic (01/18/17 Dinner) Admit Order (Ed Use Only) (01/18/17 15:20) Admit To Inpatient Psych (01/18/17 ) Vital Signs (Adult) JAMAL.Q12H.E (01/18/17 15:21) Activity Oob Ad Sandra (01/18/17 15:21) Lorazepam (Ativan) (01/18/17 15:30) Lorazepam Inj (Ativan Inj) (01/18/17 15:30) Lorazepam (Ativan) (01/18/17 15:30) Lorazepam Inj (Ativan Inj) (01/18/17 15:30) Diphenhydramine (Benadryl) (01/18/17 15:30) Diphenhydramine Inj (Benadryl Inj) (01/18/17 15:30) Acetaminophen (Tylenol) (01/18/17 15:30) Magnesium Hydroxide Liq (Milk Of Magnesi (01/18/17 15:30) Al-Mag Hy-Si 40-40-4 Mg/Ml Liq (Mag-Al P (01/18/17 15:30) Hydroxyzine Hcl (Atarax) (01/18/17 15:30) Complete Blood Count With Diff (01/19/17 06:00) Comprehensive Metabolic Panel (01/19/17 06:00) Thyroid Stimulating Hormone (01/19/17 06:00) Lipid Profile (01/19/17 06:00) Hemoglobin (Hgb) A1c (01/19/17 06:00) Vitamin D, 25-Hydroxy (01/19/17 06:00) Drug Screen, Random Urine (01/18/17 15:21) Vitamin B12 (01/19/17 06:00) Consult Hospitalist (01/18/17 ) Electrocardiogram (01/19/17 ) Ibuprofen (Motrin) (01/18/17 15:30) Budeson-Formot 80-4.5 Mcg Inh (Symbicort (01/18/17 21:00) Diazepam (Valium) (01/18/17 18:00) Divalproex Er (Depakote Er) (01/19/17 09:00) Ezetimibe (Zetia) (01/19/17 09:00) Levothyroxine (Synthroid) (01/19/17 09:00) Pravastatin (Pravachol) (01/19/17 09:00) Sertraline (Zoloft) (01/19/17 09:00) Results Vital Signs Date Time Temp Pulse Resp B/P (MAP) Pulse Ox O2 Delivery O2 Flow Rate FiO2 01/18/17 07:56 98.0 102 18 137/63 (87) Laboratory Tests Test 01/18/17 08:15 White Blood Count 8.6 Red Blood Count 5.30 Hemoglobin 16.1 Hematocrit 47.8 Mean Corpuscular Volume 90.3 Mean Corpuscular Hemoglobin 30.4 Mean Corpuscular Hemoglobin Concent 33.6 Red Cell Distribution Width 15.1 Platelet Count 243 Mean Platelet Volume 8.1 Neutrophils (%) (Auto) 64.9 Lymphocytes (%) (Auto) 24.0 Monocytes (%) (Auto) 6.7 Eosinophils (%) (Auto) 3.6 Basophils (%) (Auto) 0.8 Neutrophils # (Auto) 5.6 Lymphocytes # (Auto) 2.1 Monocytes # (Auto) 0.6 Eosinophils # (Auto) 0.3 Basophils # (Auto) 0.1 CBC Comment DIFF FINAL Differential Comment Blood Urea Nitrogen 23 Creatinine 1.60 Random Glucose 115 Total Protein 7.7 Albumin 4.0 Calcium Level 8.5 Alkaline Phosphatase 96 Aspartate Amino Transf (AST/SGOT) 30 Alanine Aminotransferase (ALT/SGPT) 24 Total Bilirubin 0.4 Sodium Level 137 Potassium Level 4.5 Chloride Level 103 Carbon Dioxide Level 26.8 Anion Gap 7 Estimat Glomerular Filtration Rate 48 Salicylates Level LESS THAN 1.7 Urine Opiates Screen NEG Acetaminophen Level LESS THAN 2.0 Urine Barbiturates Screen NEG Valproic Acid (Depakene) Level 30 Urine Amphetamines Screen NEG Urine Benzodiazepines Screen POS Urine Cocaine Screen NEG Urine Cannabinoids Screen NEG Ethyl Alcohol Level LESS THAN 3 Diagnosis Primary Impression: Paranoid type schizophrenia, chronic state with acute exacerbation Pascual Alfredo MD Jan 18, 2017 15:46
[2017-01-18 17:21] VITALS: BP 134/77; PULSE 78; RESP 19; TEMP 98.5; O2SAT 99
[2017-01-18] MEDS: DIAZEPAM 2 MG TAB PO SCH (19:11)
[2017-01-18] MEDS ORDERED: ARIPiprazole 2 MG TAB PO SCH (21:00)
[2017-01-18] MEDS: BUDESONIDE-FORMOTEROL 80/4.5 MCG INHALER INH SCH (21:00)
[2017-01-18] MEDS: ACETAMINOPHEN 325 MG TAB PO PRN (23:01)
[2017-01-19] MEDS: LEVOTHYROXINE SODIUM 200 MCG TAB PO SCH (06:00)
[2017-01-19 06:03] VITALS: BP 127/78; PULSE 70; RESP 16; TEMP 97.2; O2SAT 98
[2017-01-19] MEDS: DIVALPROEX SODIUM E.R. 500 MG TAB PO SCH (07:54)
[2017-01-19] MEDS: PRAVASTATIN SOD 40 MG TAB PO SCH (07:54)
[2017-01-19] MEDS: SERTRALINE HCL 100 MG TAB PO SCH (07:54)
[2017-01-19] MEDS: DIAZEPAM 2 MG TAB PO SCH ×3 (07:55→18:00)
--- NOTE | 2017-01-19 08:47 | HHI.HP ---
Provisional Diagnosis Admission Date Jan 18, 2017 at 15:22 [place] I. 1. Schizophrenia, paranoid type, acute exacerbation [place] II. Deferred Certification of Person's Competence To Provide Express and Informed Consent I have personally examined Hussein Martinez , a person being served at [facility] on, Jan 19, 2017 08:46. Express and informed consent means consent voluntarily given in writing, by a competent person, after sufficient explanation and disclosure of the subject matter involved to enable the person to make a knowing and willful decision without any element of force, fraud, deceit, duress, or other form of constraint or coercion. This person is 18 years of age or older, is not now known to be incompetent to consent to treatment with a guardian advocate, and does not have a health care surrogate or proxy currently making medical treatment decisions. I have found this person to be one of the following: [x] Competent to provide express and informed consent, as defined above, for voluntary admission to this facility and is competent to provide express and informed consent for treatment. He/she has the consistent capacity to make well reasoned, willful, and knowing decisions concerning his or her medical or mental health treatment. The person fully and consistently understands the purpose of the admission for examination/placement and is fully capable of personally exercising all rights [place] Incompetent to provide express and informed consent to voluntary admission, and this is incompetent to provide express and informed consent to treatment. The person must be transferred to involuntary status and a petition for a guardian advocate filed with the Circuit Court. [] Refusing to provide express and informed consent to voluntary admission but is competent to provide express and informed consent for treatment. The person must be discharged or transferred to involuntary status. Form shall be completed within 24 hours of a person's arrival at the receiving facility and filed in the clinical record of each person: 1. Admitted on a voluntary basis 2. Permitted to provide express and informed consent to his/her own treatment 3. Allowed to transfer from involuntary to voluntary status 4. Prior to permitting a person to consent to his or her own treatment after having been previously found incompetent to consent to treatment. History of Present Illness Capacity: Has Capacity HPI Mr. Martinez is a 41-year-old male with a history of paranoid schizophrenia who presented to the ED for psychiatric evaluation. He was seen in consultation by Dr. Alfredo. Reviewing the electronic medical record, I note the patient was admitted under my care in October of this year. Patient seen and examined. Chart reviewed. Case discussed with nursing staff. Patient reports that he is struggling with the "same stuff." He reports that he was nonadherent with his psychotropic medications after leaving the hospital because his psychiatrist dropped him from his practice because of medication nonadherence and so he could not get refills. Off of his psychotropics he has been feeling increasingly depressed. He also endorses speaking "to Godson goddesses." Feeling somewhat more irritable and anxious. Denies homicidal ideation per se but does admit to feeling quite generally angry. No specific victim. Denies suicidal ideation. No hypomanic or manic symptoms. Remainder of the psychiatric ROS is negative. Past psychiatric history: Denies any interval psychiatric admissions or suicide attempts since he was last here at [place]. Not currently under the care of a psychiatrist. Family history: Is unchanged from previous assessment. Chemical dependency history: The patient reports that he has stopped smoking K2. He has been drinking a little bit more heavily on the weekends but denies daily drinking. He denies any blackouts. Social history: Unchanged from previous assessment except that the patient is now residing with his brother. Review of Systems ROS Limitations: Psychotic Except as stated in HPI: all other systems reviewed are Neg Past Psych History Psychological trauma history No reported trauma history to me Violence risk - others (6 mos) Indeterminate. Denies HI but says he feels more irritable. Violence risk - self (6 mos) Indeterminate Substance Abuse History Drugs/Alcohol past 12 months See above Past Family Social History Coded Allergies: haloperidol (Unverified Allergy, Intermediate, Joint Pain, 01/01/17) Past Medical History See electronic medical record Active Scripts Diazepam (Valium) 2 Mg Tab, 2 MG PO TID for Health for 0 Days, TAB 0 Refills Order to update med rec only. Pt reports adequate supply at home. Prov:Tiago Díaz MD 10/29/16 Buspirone (Buspirone) 10 Mg Tab, 10 MG PO DIRECTED for Mental Health for 10 Days, TAB 2 Refills Take 10mg PO 6 times daily. Prov:Tiago Díaz MD 10/29/16 Sertraline (Sertraline) 100 Mg Tab, 100 MG PO DAILY for Mental health for 15 Days, TAB 1 Refill Prov:Tiago Díaz MD 10/29/16 Reported Medications Divalproex ER (Depakote ER) 500 Mg Sharon, 1500 MG PO DAILY for Control Seizures , #60 TAB 0 Refills 01/18/17 Budesonide-Formoterol Inh (Symbicort Inh) 80-4.5 Mcg/Act Aero, 1 PUFF INH Q12HR for Asthma Management, #1 INHALER 0 Refills 10/25/16 Albuterol 8.5 GM Inh (Proair Hfa 8.5 GM Inh) 90 Mcg/Act Aer, 2 PUFF INH Q4-6H Y for SHORTNESS OF BREATH, #1 INHALER 0 Refills 108 mcg/actuation 10/25/16 Levothyroxine (Levothyroxine) 200 Mcg Tab, 200 MCG PO DAILY for Thyroid, #30 TAB 0 Refills 10/25/16 Lovastatin (Lovastatin) 40 Mg Tab, 40 MG PO DAILY for Cholesterol Management, # 30 TAB 0 Refills 10/25/16 Ezetimibe (Zetia) 10 Mg Tab, 10 MG PO DAILY, #30 TAB 0 Refills 10/25/16 Discontinued Scripts Thiothixene (Thiothixene) 1 Mg Cap, 2 MG PO TID for Mental Health for 10 Days, CAP 2 Refills Prov:Tiago Díaz MD 10/29/16 Current Medications Medications (Trade) Dose Ordered Sig/Fausto Route Start Time Stop Time Status Last Admin (Ativan) 1 mg Q6H PRN PO 01/18/17 15:30 (Ativan Inj) 1 mg Q6H PRN IM 01/18/17 15:30 (Benadryl) 50 mg Q6H PRN PO 01/18/17 15:30 (Benadryl Inj) 50 mg Q6H PRN IM 01/18/17 15:30 (Tylenol) 650 mg Q4H PRN PO 01/18/17 15:30 01/18/17 23:01 (Milk Of Magnesia Liq) 30 ml DAILY PRN PO 01/18/17 15:30 (Mag-Al Plus Susp Liq) 30 ml Q6H PRN PO 01/18/17 15:30 (Atarax) 50 mg Q6H PRN PO 01/18/17 15:30 (Symbicort 80-4.5 Mcg Inh) 1 puff Q12HR INH 01/18/17 21:00 (Valium) 2 mg TID PO 01/18/17 18:00 01/19/17 07:55 (Depakote Er) 1,500 mg DAILY PO 01/19/17 09:00 01/19/17 07:54 (Zetia) 10 mg DAILY PO 01/19/17 09:00 (Synthroid) 200 mcg DAILY@0600 PO 01/19/17 06:00 (Pravachol) 40 mg DAILY PO 01/19/17 09:00 01/19/17 07:54 (Zoloft) 100 mg DAILY PO 01/19/17 09:00 01/19/17 07:54 (Abilify) 2 mg HS PO 01/18/17 21:00 01/18/17 21:00 Patient's Strengths (min. 2) In a monitored setting. Verbally fluent. Physical Exam Physical exam completed by ED provider. On my exam no acute distress. No motor abnormalities. Labs and vitals reviewed: Vital Signs Vital Signs Date Time Temp Pulse Resp B/P (MAP) Pulse Ox O2 Delivery O2 Flow Rate FiO2 01/19/17 06:03 97.2 70 16 127/78 (94) 98 01/18/17 14:00 Room Air Lab Results Item Value Date Time White Blood Count 8.6 TH/MM3 01/18/17 0815 Hemoglobin 16.1 GM/DL 01/18/17 0815 Platelet Count 243 TH/MM3 01/18/17 0815 Sodium Level 137 MEQ/L 01/18/17 0815 Potassium Level 4.5 MEQ/L 01/18/17 0815 Chloride Level 103 MEQ/L 01/18/17 0815 Carbon Dioxide Level 26.8 MEQ/L 01/18/17 0815 Blood Urea Nitrogen 23 MG/DL H 01/18/17 0815 Creatinine 1.60 MG/DL H 01/18/17 0815 Aspartate Amino Transf (AST/SGOT) 30 U/L 01/18/17 0815 Alanine Aminotransferase (ALT/SGPT) 24 U/L 01/18/17 0815 Alkaline Phosphatase 96 U/L 01/18/17 0815 Urine Benzodiazepines Screen POS H 01/18/17 0815 Valproic Acid (Depakene) Level 30 MCG/ML L 01/18/17 0815 Ethyl Alcohol Level LESS THAN 3 MG/DL 01/18/17 0815 Mental Status Examination No motor abnormalities. Appearance In hospital attire. Fairly well groomed. Speech: Unremarkable Orientation: x3 Memory: Unremarkable Thought Process: Logical, Linear Thought Content: Other (no delusions) Language average Fund of Knowledge Average Hallucination Type: Auditory (as above. Does not appear internally preoccupied.) Attention and Concentration: Good Suicidal Ideation: No Homicidal Ideation: No Insight: Fair Judgment: Poor Affect: Other (blunted) Mood: Other (depressed) Assessment & Plan Problem List: (1) Paranoid type schizophrenia, chronic state with acute exacerbation ICD Codes: F20.0 - Paranoid schizophrenia Status: Acute Assessment & Plan 41-year-old male with psychiatric history as detailed above presents with decompensated psychotic episode, reportedly due to medication nonadherence. Patient reports a history of medication adherence issues in the past. We discuss the possibility of a long-acting injectable antipsychotic as a remedy to this medication nonadherence. Patient is agreeable to this strategy. We discussed several options in this regard and settle on continuing the Abilify started by Dr. Alfredo. Admit inpatient. Voluntary status. Adjust Abilify to 5 mg daily. To consider long-acting injectable. Continue other prior to admission psychotropics including Zoloft, Depakote, BuSpar, Valium. Dr. Alfredo has consulted the hospitalist to assist with medical management. Vitals every shift. Counselor to see. Disposition planning. Estimated length of stay: 5-7 days. Discharge Planning Pending stabilization Request HC Surrog/Guard Advoc?: No Tiago Díaz MD Jan 19, 2017 08:47
[2017-01-19] MEDS: BUDESONIDE-FORMOTEROL 80/4.5 MCG INHALER INH SCH ×2 (09:00→20:10)
[2017-01-19] MEDS ORDERED: INFO FOR PHARMACY/READ COMMENT SCH (09:15)
[2017-01-19] MEDS: EZETIMIBE 10 MG TAB PO SCH (09:31)
[2017-01-19 09:36] LABS: AUTOMATED NEUTROPHIL # 4.7 TH/MM3 (1.8-7.7); BASOPHIL # 0.1 TH/MM3 (0-0.2); BASOPHIL % 0.7 % (0.0-2.0); EOSINOPHIL # 0.3 TH/MM3 (0-0.4); EOSINOPHIL % 3.9 % (0.0-4.0); HEMO FLAGS DIFF FINAL; LYMPH % 23.6 % (9.0-44.0); LYMPHOCYTE # 1.7 TH/MM3 (1.0-4.8); MEAN CELL VOLUME 90.4 FL (80.0-100.0); MEAN CORPUSCULAR HEMOGLOBIN 30.4 PG (27.0-34.0); MEAN CORPUSCULAR HGB CONC 33.7 % (32.0-36.0); MONO % 6.6 % (0.0-8.0); NEUT % 65.2 % (16.0-70.0); PLATELET COUNT 225 TH/MM3 (150-450); RED BLOOD COUNT 4.99 MIL/MM3 (4.50-5.90); RED CELL DISTRIBUTION WIDTH 15.2 % (11.6-17.2); WHITE BLOOD COUNT 7.2 TH/MM3 (4.0-11.0)
--- NOTE | 2017-01-19 09:46 | EKG ---
Date Performed: 01/18/2017 Time Performed: 16:16:16 PTAGE: 41 years EKG: Sinus rhythm LEFT VENTRICULAR HYPERTROPHY AND ST-T CHANGE ABNORMAL ECG PREVIOUS TRACING : 10/26/2016 14.00 DOCTOR: Lui Isaacs Interpretating Date/Time 01/19/2017 09:45:28
[2017-01-19] MEDS ORDERED: ALBUTEROL SULFATE 90 MCG/ACT HFA 18 GM INHALER INH PRN (10:00)
[2017-01-19] MEDS: ARIPiprazole 5 MG TAB PO SCH (10:00)
[2017-01-19 10:06] LABS: ANION GAP 5 MEQ/L (5-15); AST (GOT) 12 U/L (15-37); BICARBONATE 33.3 MEQ/L (21.0-32.0); BLOOD UREA NITROGEN 20 MG/DL (7-18); CHLORIDE 102 MEQ/L (98-107); GLOMERULAR FILTRATION RATE 59 ML/MIN (>89); POTASSIUM 4.2 MEQ/L (3.5-5.1); SODIUM (NA) 140 MEQ/L (136-145)
[2017-01-19 10:07] LABS: ALT (GPT) 21 U/L (12-78)
--- NOTE | 2017-01-19 10:10 | EKG ---
Date Performed: 01/19/2017 Time Performed: 09:43:38 PTAGE: 41 years EKG: Sinus rhythm WITH OCCASIONAL VENTRICULAR PREMATURE COMPLEXES NONSPECIFIC T-WAVE ABNORMALITY BORDERLINE ECG PREVIOUS TRACING : 01/18/2017 16.16 DOCTOR: Lui Isaacs Interpretating Date/Time 01/19/2017 10:10:10
[2017-01-19 10:33] LABS: ALKALINE PHOSPHATASE 86 U/L (45-117); HDL CHOLESTEROL 42.6 MG/DL (40.0-60.0); LDL CHOLESTEROL 100 MG/DL (0-99); TOTAL BILIRUBIN ADULT 0.4 MG/DL (0.2-1.0)
[2017-01-19 10:42] LABS: HEMOGLOBIN A1a 1.2 %; HEMOGLOBIN A1b 1.8 %; HEMOGLOBIN Ao 83.8 %; HEMOGLOBIN LA1C 2.3 %
[2017-01-19] MEDS: busPIRone HCL 10 MG TAB PO SCH ×4 (12:00→20:10)
[2017-01-19 18:31] VITALS: BP 126/76; PULSE 81; RESP 17; TEMP 97.7; O2SAT 99
[2017-01-20 05:44] VITALS: BP 124/79; PULSE 71; RESP 16; TEMP 97.2; O2SAT 96
[2017-01-20] MEDS: busPIRone HCL 10 MG TAB PO SCH ×7 (06:07→20:25)
[2017-01-20] MEDS: LEVOTHYROXINE SODIUM 200 MCG TAB PO SCH (06:07)
[2017-01-20] MEDS: EZETIMIBE 10 MG TAB PO SCH (08:09)
[2017-01-20] MEDS: DIVALPROEX SODIUM E.R. 500 MG TAB PO SCH (08:09)
[2017-01-20] MEDS: DIAZEPAM 2 MG TAB PO SCH ×3 (08:09→17:23)
[2017-01-20] MEDS: BUDESONIDE-FORMOTEROL 80/4.5 MCG INHALER INH SCH ×2 (08:09→20:26)
[2017-01-20] MEDS: PRAVASTATIN SOD 40 MG TAB PO SCH (08:10)
[2017-01-20] MEDS: SERTRALINE HCL 100 MG TAB PO SCH (08:10)
[2017-01-20] MEDS: ARIPiprazole 5 MG TAB PO SCH (08:10)
--- NOTE | 2017-01-20 15:32 | HHI.PYPN ---
Subjective Remarks Patient was seen and case discussed with nursing. Patient describes being discharged from his outpatient psychiatrist running out of medications the past couple of months. He had noticed an increase in symptoms before admission. Today, he has been sleeping throughout the day and he finds this therapeutic. He is meditating to help his voices go away. They are still present telling him to hurt himself but he says he can easily brush them off. He is calm and cooperative and logical during the interview. Denies homicidal or suicidal ideation intent or plan. Compliant with medications Objective Alert: Yes [place]: Person, Place, Date, Situation Mood: Depressed Affect: Restricted Memory Intact: Immediate, Recent, Remote Hallucinations: Auditory Delusions: Yes Delusion Type: Paranoid Suicidal: Ideation Homicidal: Plan, Ideation Insight/Judgment Poor Vitals/IOs Vital Signs Date Time Temp Pulse Resp B/P (MAP) Pulse Ox O2 Delivery O2 Flow Rate FiO2 01/20/17 05:44 97.2 71 16 124/79 (94) 96 01/18/17 14:00 Room Air Assessment & Plan Problem List: (1) Paranoid type schizophrenia, chronic state with acute exacerbation ICD Codes: F20.0 - Paranoid schizophrenia Status: Acute Assessment & Plan Continue current treatment plan Justification for Cont. Inpt. Patient would decompensate in a less restrictive setting Request HC Surrog/Guard Advoc?: No Adam Torres DO Jan 20, 2017 15:32
[2017-01-20 18:00] VITALS: BP 136/73; PULSE 82; RESP 17; TEMP 98.7
[2017-01-21] MEDS: busPIRone HCL 10 MG TAB PO SCH ×6 (05:00→21:50)
[2017-01-21] MEDS: LEVOTHYROXINE SODIUM 200 MCG TAB PO SCH (05:00)
[2017-01-21 05:43] VITALS: BP 125/80; PULSE 88; RESP 17; TEMP 97.5; O2SAT 95
[2017-01-21] MEDS: DIAZEPAM 2 MG TAB PO SCH ×3 (09:00→17:59)
[2017-01-21] MEDS: ARIPiprazole 5 MG TAB PO SCH (09:00)
[2017-01-21] MEDS: DIVALPROEX SODIUM E.R. 500 MG TAB PO SCH (09:00)
[2017-01-21] MEDS: PRAVASTATIN SOD 40 MG TAB PO SCH (09:00)
[2017-01-21] MEDS: BUDESONIDE-FORMOTEROL 80/4.5 MCG INHALER INH SCH ×2 (09:00→21:00)
[2017-01-21] MEDS: EZETIMIBE 10 MG TAB PO SCH (09:00)
[2017-01-21] MEDS: SERTRALINE HCL 100 MG TAB PO SCH (09:00)
--- NOTE | 2017-01-21 11:18 | HHI.PYPN ---
Subjective Remarks Patient seen and examined with counselor and nurse. Chart reviewed. Case discussed with counselor and nurse. Nursing staff reports that the patient is somewhat depressed and seclusive. On my examination today, the patient says that he was experiencing some audiovisual hallucinations over the weekend but none so far this morning. He was also feeling somewhat angry over the weekend but not so far this morning. No SI or HI. Little bit paranoid, says that he is avoiding people. He does feel like his mind is "clearing" with medications. Denies side effects from medications. No physical complaints. Review of Systems Except as stated in HPI: all other systems reviewed are Neg Objective Alert: Yes [place]: Person, Place, Date, Situation Mood: Depressed Affect: Restricted Memory Intact: Comment (intact on clinical exam) Hallucinations: Other (denies AVH currently but some over the weekend) Delusions: Yes Delusion Type: Paranoid Suicidal: Ideation (no SI presently) Homicidal: Ideation (no HI presently) Insight/Judgment Poor Remarks No motor abnormalities noted. Thought process linear. Grooming and hygiene fair. Labs Labs reviewed. Decreased GFR noted. Elevated TSH noted. Low vitamin D noted. Vitals/IOs Vital Signs Date Time Temp Pulse Resp B/P (MAP) Pulse Ox O2 Delivery O2 Flow Rate FiO2 01/21/17 05:43 97.5 88 17 125/80 (95) 95 01/18/17 14:00 Room Air Assessment & Plan Problem List: (1) Paranoid type schizophrenia, chronic state with acute exacerbation ICD Codes: F20.0 - Paranoid schizophrenia Status: Acute Assessment & Plan Titrate Abilify to 10 mg daily. So long as the patient responds to this medication, could consider long-acting injectable. Continue other psychotropics as ordered. Still awaiting hospitalist input, particularly now regarding the elevated TSH. I have placed a second consultation as the initial consultation request was dated 01/18. Vitamin D supplement. Encourage fluids. Check BMP in the morning. Continue to monitor on the high acuity unit. Continue other medications and care as ordered. Justification for Cont. Inpt. Medication changes. High risk for decompensation a less restrictive environment. Impairment in reality construction. Discharge Planning Pending psychiatric stabilization. Request HC Surrog/Guard Advoc?: No Tiago Díaz MD Jan 21, 2017 11:18
[2017-01-21 17:47] VITALS: BP 116/72; PULSE 50; RESP 18; TEMP 98.2; O2SAT 99
[2017-01-21] MEDS: ACETAMINOPHEN 325 MG TAB PO PRN (21:50)
[2017-01-22 06:16] VITALS: BP 101/64; PULSE 78; RESP 18; TEMP 96.9; O2SAT 95
[2017-01-22] MEDS: busPIRone HCL 10 MG TAB PO SCH ×6 (06:22→21:15)
[2017-01-22] MEDS: LEVOTHYROXINE SODIUM 200 MCG TAB PO SCH (06:22)
--- NOTE | 2017-01-22 08:08 | HHI.PYPN ---
Subjective Remarks Patient seen and examined. Chart reviewed. Case discussed in treatment team. Called by RN yesterday afternoon because patient was felt to be too sedated from meds. I instructed RN to hold patient's BuSpar and Valium if he remained sedated. On my exam this morning, patient is awake and alert. He insists he was not sedated but rather has been spending a lot of time in his room in bed because he finds the day area over stimulating because there are "20 different personalities." He feels like current med regimen is producing "more mental clarity." No SI/HI. Denies side effects from meds but does note that he usually only takes the Valium BID, not TID. No physical complaints. Review of Systems Except as stated in HPI: all other systems reviewed are Neg Objective Alert: Yes [place]: Person, Place, Date, Situation Mood: Calm Affect: Blunted Memory Intact: Comment (intact) Hallucinations: Other (No AVH currently. When he has AVH, he tries to ignore them.) Delusions: Yes Delusion Type: Paranoid Suicidal: Ideation (No SI) Homicidal: Ideation (No HI) Insight/Judgment Poor Remarks No motor abnormalities noted. Thought process linear. Grooming and hygiene fair. Labs Labs reviewed. BMP pending. Vitals/IOs Vital Signs Date Time Temp Pulse Resp B/P (MAP) Pulse Ox O2 Delivery O2 Flow Rate FiO2 01/22/17 06:16 96.9 78 18 101/64 (76) 95 01/18/17 14:00 Room Air Assessment & Plan Problem List: (1) Paranoid type schizophrenia, chronic state with acute exacerbation ICD Codes: F20.0 - Paranoid schizophrenia Status: Acute Assessment & Plan First dose of Abilify 10 mg daily this morning. Consider further titration of this agent and/or initiation of long-acting injectable Abilify. I will taper the Valium back to twice a day. Hospitalist input noted and appreciated. Continue to monitor on the inpatient unit. Continue other medications and care as ordered. Justification for Cont. Inpt. Medication changes. Risk for decompensation. Discharge Planning Home with outpatient follow up once stabilized. Hopeful for d/c by the end of the week. Request HC Surrog/Guard Advoc?: No Tiago Díaz MD Jan 22, 2017 08:08
[2017-01-22] MEDS: CHOLECALCIFEROL (VIT D3) 1000 UNIT TAB PO SCH (08:26)
[2017-01-22] MEDS: DIVALPROEX SODIUM E.R. 500 MG TAB PO SCH (08:26)
[2017-01-22] MEDS: EZETIMIBE 10 MG TAB PO SCH (08:27)
[2017-01-22] MEDS: DIAZEPAM 2 MG TAB PO SCH ×2 (08:27→21:15)
[2017-01-22] MEDS: BUDESONIDE-FORMOTEROL 80/4.5 MCG INHALER INH SCH ×2 (08:27→21:15)
[2017-01-22] MEDS: PRAVASTATIN SOD 40 MG TAB PO SCH (08:27)
[2017-01-22] MEDS: SERTRALINE HCL 100 MG TAB PO SCH (08:27)
[2017-01-22] MEDS: ARIPiprazole 10 MG TAB PO SCH (08:27)
--- NOTE | 2017-01-22 11:32 | PD.CONS ---
History of Present Illness Service Family medicine Consult Requested By Attending Reason for Consult Medical management Primary Care Physician Dr. Bianca ANTONIO Diagnoses: (1) Paranoid type schizophrenia, chronic state with acute exacerbation (2) Elevated TSH (3) Hyperlipemia (4) Asthma History of Present Illness Patient is a 41-year-old male with a history of paranoid schizophrenia who presented to the ED for psychiatric evaluation. Patient reports that he is struggling with issues. He reports that he was nonadherent with his medications after leaving the hospital. Off of his psychotropics he has been feeling increasingly depressed. He also reported that he thought he was dropped from Dr. Valenzuela practice also and that is why he was not taking his medications. Patient is alert and cooperative at visit. Review of Systems Respiratory: DENIES: Sputum production, Shortness of breath Cardiovascular: DENIES: Chest pain, Palpitations, Syncope Gastrointestinal: DENIES: Abdominal pain, Constipation, Diarrhea Neurologic: DENIES: Seizures Psychiatric: COMPLAINS OF: Anxiety, Depression Past Family Social History Allergies: Coded Allergies: haloperidol (Unverified Allergy, Intermediate, Joint Pain, 01/01/17) Past Medical History Hypothyroidism Schizophrenia Asthma HLD Vitamin d Deficiency Past Surgical History thyroidectomy Reported Medications Current Medications Medications (Trade) Dose Ordered Sig/Fausto Route Start Time Stop Time Status Last Admin (Benadryl) 50 mg Q6H PRN PO 01/18/17 15:30 (Benadryl Inj) 50 mg Q6H PRN IM 01/18/17 15:30 (Tylenol) 650 mg Q4H PRN PO 01/18/17 15:30 01/21/17 21:50 (Milk Of Magnesia Liq) 30 ml DAILY PRN PO 01/18/17 15:30 (Mag-Al Plus Susp Liq) 30 ml Q6H PRN PO 01/18/17 15:30 (Atarax) 50 mg Q6H PRN PO 01/18/17 15:30 (Symbicort 80-4.5 Mcg Inh) 1 puff Q12HR INH 01/18/17 21:00 01/22/17 08:27 (Depakote Er) 1,500 mg DAILY PO 01/19/17 09:00 01/22/17 08:26 (Zetia) 10 mg DAILY PO 01/19/17 09:00 01/22/17 08:27 (Synthroid) 200 mcg DAILY@0600 PO 01/19/17 06:00 01/22/17 06:22 (Pravachol) 40 mg DAILY PO 01/19/17 09:00 01/22/17 08:27 (Zoloft) 100 mg DAILY PO 01/19/17 09:00 01/22/17 08:27 (Ventolin Hfa Inh) 2 puff Q6H PRN INH 01/19/17 10:00 Info 1 UNSCH .XX 01/19/17 09:15 (Buspar) 10 mg DAILY@0600,0900,1200 PO 01/19/17 12:00 01/22/17 09:00 (Buspar) 10 mg DAILY@1500,1800,2100 PO 01/19/17 15:00 01/21/17 21:50 (Abilify) 10 mg DAILY PO 01/22/17 09:00 01/22/17 08:27 (Vitamin D3) 2,000 units DAILY PO 01/22/17 09:00 01/22/17 08:26 (Valium) 2 mg BID PO 01/22/17 09:00 01/22/17 08:27 Active Ordered Medications Current Medications Medications (Trade) Dose Ordered Sig/Fausto Route Start Time Stop Time Status Last Admin (Benadryl) 50 mg Q6H PRN PO 01/18/17 15:30 (Benadryl Inj) 50 mg Q6H PRN IM 01/18/17 15:30 (Tylenol) 650 mg Q4H PRN PO 01/18/17 15:30 01/21/17 21:50 (Milk Of Magnesia Liq) 30 ml DAILY PRN PO 01/18/17 15:30 (Mag-Al Plus Susp Liq) 30 ml Q6H PRN PO 01/18/17 15:30 (Atarax) 50 mg Q6H PRN PO 01/18/17 15:30 (Symbicort 80-4.5 Mcg Inh) 1 puff Q12HR INH 01/18/17 21:00 01/22/17 08:27 (Depakote Er) 1,500 mg DAILY PO 01/19/17 09:00 01/22/17 08:26 (Zetia) 10 mg DAILY PO 01/19/17 09:00 01/22/17 08:27 (Synthroid) 200 mcg DAILY@0600 PO 01/19/17 06:00 01/22/17 06:22 (Pravachol) 40 mg DAILY PO 01/19/17 09:00 01/22/17 08:27 (Zoloft) 100 mg DAILY PO 01/19/17 09:00 01/22/17 08:27 (Ventolin Hfa Inh) 2 puff Q6H PRN INH 01/19/17 10:00 Info 1 UNSCH .XX 01/19/17 09:15 (Buspar) 10 mg DAILY@0600,0900,1200 PO 01/19/17 12:00 01/22/17 09:00 (Buspar) 10 mg DAILY@1500,1800,2100 PO 01/19/17 15:00 01/21/17 21:50 (Abilify) 10 mg DAILY PO 01/22/17 09:00 01/22/17 08:27 (Vitamin D3) 2,000 units DAILY PO 01/22/17 09:00 01/22/17 08:26 (Valium) 2 mg BID PO 01/22/17 09:00 01/22/17 08:27 Family History Mother and aunt with schizophrenia Social History Drinks on weekend disabled occasion illicit drug use. Physical Exam Vital Signs GENERAL: Alert and oriented SKIN: Warm and dry. HEAD: Normocephalic. EYES: No scleral icterus. No injection or drainage. NECK: Supple, trachea midline. No JVD or lymphadenopathy. CARDIOVASCULAR: Regular rate and rhythm without murmurs, gallops, or rubs. RESPIRATORY: Breath sounds equal bilaterally. No accessory muscle use. GASTROINTESTINAL: Abdomen soft, non-tender, nondistended. MUSCULOSKELETAL: No cyanosis, or edema. BACK: Nontender without obvious deformity. No CVA tenderness. Vital Signs Date Time Temp Pulse Resp B/P (MAP) Pulse Ox O2 Delivery O2 Flow Rate FiO2 01/22/17 06:16 96.9 78 18 101/64 (76) 95 01/21/17 17:47 98.2 50 18 116/72 (87) 99 Physical Exam GENERAL: This is a well-nourished, well-developed patient, in no apparent distress. SKIN: No rashes, ecchymoses or lesions. Cool and dry. HEAD: Atraumatic. Normocephalic. CARDIOVASCULAR: Regular rate and rhythm without murmurs, gallops, or rubs. RESPIRATORY: Clear to auscultation. Breath sounds equal bilaterally. No wheezes , rales, or rhonchi. GASTROINTESTINAL: Abdomen soft, non-tender, nondistended. No hepato-splenomegaly , or palpable masses. No guarding. MUSCULOSKELETAL: Extremities without clubbing, cyanosis, or edema. No joint tenderness, effusion, or edema noted. No calf tenderness. Negative Homans sign bilaterally. NEUROLOGICAL: Awake and alert. Normal speech. Laboratory Laboratory Tests Test 01/18/17 08:15 01/19/17 09:09 Salicylates Level LESS THAN 1.7 MG/DL Urine Opiates Screen NEG Acetaminophen Level LESS THAN 2.0 MCG/ML Urine Barbiturates Screen NEG Valproic Acid (Depakene) Level 30 MCG/ML Urine Amphetamines Screen NEG Urine Benzodiazepines Screen POS Urine Cocaine Screen NEG Urine Cannabinoids Screen NEG Ethyl Alcohol Level LESS THAN 3 MG/DL White Blood Count 7.2 TH/MM3 Red Blood Count 4.99 MIL/MM3 Hemoglobin 15.2 GM/DL Hematocrit 45.0 % Mean Corpuscular Volume 90.4 FL Mean Corpuscular Hemoglobin 30.4 PG Mean Corpuscular Hemoglobin Concent 33.7 % Red Cell Distribution Width 15.2 % Platelet Count 225 TH/MM3 Mean Platelet Volume 8.2 FL Neutrophils (%) (Auto) 65.2 % Lymphocytes (%) (Auto) 23.6 % Monocytes (%) (Auto) 6.6 % Eosinophils (%) (Auto) 3.9 % Basophils (%) (Auto) 0.7 % Neutrophils # (Auto) 4.7 TH/MM3 Lymphocytes # (Auto) 1.7 TH/MM3 Monocytes # (Auto) 0.5 TH/MM3 Eosinophils # (Auto) 0.3 TH/MM3 Basophils # (Auto) 0.1 TH/MM3 CBC Comment DIFF FINAL Differential Comment Blood Urea Nitrogen 20 MG/DL Creatinine 1.34 MG/DL Random Glucose 130 MG/DL Total Protein 6.9 GM/DL Albumin 3.9 GM/DL Calcium Level 8.6 MG/DL Alkaline Phosphatase 86 U/L Aspartate Amino Transf (AST/SGOT) 12 U/L Alanine Aminotransferase (ALT/SGPT) 21 U/L Total Bilirubin 0.4 MG/DL Sodium Level 140 MEQ/L Potassium Level 4.2 MEQ/L Chloride Level 102 MEQ/L Carbon Dioxide Level 33.3 MEQ/L Anion Gap 5 MEQ/L Estimat Glomerular Filtration Rate 59 ML/MIN Hemoglobin A1c 6.2 % Triglycerides Level 261 MG/DL Cholesterol Level 195 MG/DL LDL Cholesterol 100 MG/DL HDL Cholesterol 42.6 MG/DL Cholesterol/HDL Ratio 4.57 RATIO Vitamin B12 Level 662 PG/ML 25-Hydroxy Vitamin D Total 14.8 ng/ML Thyroid Stimulating Hormone 3rd Gen 49.700 uIU/ML Result Diagram: 01/19/1790801/19/17908 Assessment and Plan Problem List: (1) Elevated TSH ICD Codes: R94.6 - Abnormal results of thyroid function studies Status: Acute (2) Asthma ICD Codes: J45.909 - Unspecified asthma, uncomplicated (3) Hyperlipemia ICD Codes: E78.5 - Hyperlipidemia, unspecified Status: Acute (4) Paranoid type schizophrenia, chronic state with acute exacerbation ICD Codes: F20.0 - Paranoid schizophrenia Status: Acute Assessment and Plan 01/22/17 Paranoid schizophrenia: Psych managing. Patient is alert and cooperative Hypothyroidism: Levothyroxine discontinued. Patient hypothyroidism was well controlled on [place] thyroid in past will order. TSH recheck in 6 weeks. Asthma: No SOB continue Symbicort HLD: continue statin will check lipid panel Vitamin D deficiency; continue replacement. I and the PRODUCTION EXPERT have both examined this patient and reviewed this note and I agree with these findings and plan of care. Nola Alvarez. PRODUCTION EXPERT Jan 22, 2017 11:32
[2017-01-22 12:14] LABS: BICARBONATE 33.5 MEQ/L (21.0-32.0); POTASSIUM 4.2 MEQ/L (3.5-5.1)
--- NOTE | 2017-01-22 12:24 | PD.TTN ---
Patient Problems 1. Discharge planning 2. Medication compliance 3. Knowledge deficit 4. Lack of coping skills Progress Toward Goals Provider Present: Dr. Bipin Díaz Provider Input: Dr. Díaz treatment team met to discuss treatment plan, discharge, and medication. Patient presents as doing better, if patient continues to stablize discharge possibly at end of week. Patient is medication complaint Nurse(s) Input: Patient's nurse Dariusz Lambert RN reports patient's mood is 6 out of 10. Pleasant, cooperative. Per pt his goals are participate in groups and to have no a Psychiatric Counselors Present: Fern Hoyos [facility] Psych Therapist Input: Patient presents pleasant, cooperative but guarded, seclusive, affect blunted. Patient's speech was clear and organized. Patient is alert to person and place but has poor insight into his situation. Patient states he is having intermittent auditory and visual hallucinations. Paient is medication compliant. Reports eating and sleeping well. Group Spec/RT/OT/WILL Present: NICOLETTE Navarro Group Spec/RT/OT/WILL Input: Patient isolates to room Fern Hoyos [facility] Jan 22, 2017 12:24
[2017-01-22 18:05] VITALS: BP 112/77; PULSE 84; RESP 18; TEMP 97.8; O2SAT 95
[2017-01-23 05:39] VITALS: BP 111/62; PULSE 72; RESP 18; TEMP 98; O2SAT 94
[2017-01-23] MEDS: busPIRone HCL 10 MG TAB PO SCH ×6 (05:44→21:29)
[2017-01-23] MEDS: DIAZEPAM 2 MG TAB PO SCH ×2 (09:00→21:29)
[2017-01-23] MEDS: PRAVASTATIN SOD 40 MG TAB PO SCH (09:31)
[2017-01-23] MEDS: THYROID 60 MG TAB PO SCH (09:31)
[2017-01-23] MEDS: DIVALPROEX SODIUM E.R. 500 MG TAB PO SCH (09:31)
[2017-01-23] MEDS: EZETIMIBE 10 MG TAB PO SCH (09:31)
[2017-01-23] MEDS: SERTRALINE HCL 100 MG TAB PO SCH (09:31)
[2017-01-23] MEDS: ARIPiprazole 10 MG TAB PO SCH (09:31)
[2017-01-23] MEDS: CHOLECALCIFEROL (VIT D3) 1000 UNIT TAB PO SCH (09:31)
[2017-01-23] MEDS: BUDESONIDE-FORMOTEROL 80/4.5 MCG INHALER INH SCH ×2 (09:32→21:29)
--- NOTE | 2017-01-23 09:50 | HHI.PYPN ---
Subjective Remarks Patient seen and examined with counselor and nurse. Chart reviewed. Case d/w RN. On my exam today, patient reports he feels he is improving. "I'm not as conflicted with my thoughts." Continues to struggle with anger and irritability as recently as this morning. Has difficulty tolerating time in the day room, noting that his peers are "idiots" in his estimation. Denies AVH. Denies CAH. No side effects from medications. No physical complaints. Review of Systems ROS Limitations: Poor Historian Except as stated in HPI: all other systems reviewed are Neg Objective Alert: Yes Pierce: Person, Place, Date, Situation Mood: Other (irritable) Affect: Appropriate (fairly full and reactive) Memory Intact: Comment (intact) Hallucinations: Other (Denies AVH) Delusions: Yes Delusion Type: Paranoid Suicidal: Ideation (No SI) Homicidal: Ideation (No HI) Insight/Judgment Poor Remarks No abnormal motor movements noted. TP linear. Labs Test 01/22/17 11:05 Blood Urea Nitrogen 18 MG/DL Creatinine 1.35 MG/DL Random Glucose 100 MG/DL Calcium Level 8.9 MG/DL Sodium Level 137 MEQ/L Potassium Level 4.2 MEQ/L Chloride Level 98 MEQ/L Carbon Dioxide Level 33.5 MEQ/L Anion Gap 6 MEQ/L Estimat Glomerular Filtration Rate 58 ML/MIN Labs reviewed. GFR stable. VPA level drawn but not resulted yet per lab. Vitals/IOs Vital Signs Date Time Temp Pulse Resp B/P (MAP) Pulse Ox O2 Delivery O2 Flow Rate FiO2 01/23/17 05:39 98.0 72 18 111/62 (01) 94 Assessment & Plan Problem List: (1) Paranoid type schizophrenia, chronic state with acute exacerbation ICD Codes: F20.0 - Paranoid schizophrenia Status: Acute Assessment & Plan Titrate Abilify to 15mg daily. Consider VALERA. Follow up VPA level. Could consider titrating Depakote as well to target irritability if level will allow. Continue other psychotropics as ordered. Continue to monitor on the high acuity unit. Continue other medications and care as ordered. Justification for Cont. Inpt. Med changes. Risk for decompensation in less restrictive environment. Discharge Planning Pending stabilization. Possible d/c before the weekend versus beginning of next week. Request HC Surrog/Guard Advoc?: No Tiago Díaz MD Jan 23, 2017 09:50
[2017-01-23 13:18] LABS: HEMATOCRIT 49.1 % (39.0-51.0); MEAN CELL VOLUME 90.9 FL (80.0-100.0); MEAN CORPUSCULAR HEMOGLOBIN 30.5 PG (27.0-34.0); MEAN CORPUSCULAR HGB CONC 33.6 % (32.0-36.0); PLATELET COUNT 253 TH/MM3 (150-450); RED CELL DISTRIBUTION WIDTH 15.5 % (11.6-17.2); REVIEW FLAG FINAL; WHITE BLOOD COUNT 7.7 TH/MM3 (4.0-11.0)
[2017-01-23 13:40] LABS: POTASSIUM 4.4 MEQ/L (3.5-5.1)
[2017-01-23 13:45] LABS: HDL CHOLESTEROL 32.7 MG/DL (40.0-60.0)
[2017-01-23 18:08] VITALS: BP 99/60; PULSE 89; RESP 18; TEMP 97.3; O2SAT 96
[2017-01-23] MEDS: ACETAMINOPHEN 325 MG TAB PO PRN (21:30)
[2017-01-24] MEDS: ACETAMINOPHEN 325 MG TAB PO PRN (02:58)
[2017-01-24] MEDS: busPIRone HCL 10 MG TAB PO SCH ×4 (06:01→15:00)
[2017-01-24 06:03] VITALS: BP 104/76; PULSE 75; RESP 16; TEMP 97.6; O2SAT 95
[2017-01-24] MEDS: PRAVASTATIN SOD 40 MG TAB PO SCH (08:31)
[2017-01-24] MEDS: DIAZEPAM 2 MG TAB PO SCH (08:31)
[2017-01-24] MEDS: CHOLECALCIFEROL (VIT D3) 1000 UNIT TAB PO SCH (08:31)
[2017-01-24] MEDS: SERTRALINE HCL 100 MG TAB PO SCH (08:32)
[2017-01-24] MEDS: THYROID 60 MG TAB PO SCH (08:32)
[2017-01-24] MEDS: DIVALPROEX SODIUM E.R. 500 MG TAB PO SCH (08:32)
[2017-01-24] MEDS: BUDESONIDE-FORMOTEROL 80/4.5 MCG INHALER INH SCH (08:36)
[2017-01-24] MEDS: EZETIMIBE 10 MG TAB PO SCH (08:37)
[2017-01-24] MEDS ORDERED: ARIPiprazole 15 MG TAB PO SCH (09:00)
--- NOTE | 2017-01-24 11:02 | HHI.PR ---
Subjective Remarks Patient denies any SOB or CP. Very cooperative and pleasant at visit. Objective Vital Signs Date Time Temp Pulse Resp B/P (MAP) Pulse Ox O2 Delivery O2 Flow Rate FiO2 01/24/17 06:03 97.6 75 16 104/76 (85) 95 01/23/17 18:08 97.3 89 18 99/60 (73) 96 Result Diagram: 01/23/17 1251 01/23/17 1251 Objective Remarks GENERAL: Alert and oriented SKIN: Warm and dry. HEAD: Normocephalic. EYES: No scleral icterus. No injection or drainage. NECK: Supple, trachea midline. No JVD or lymphadenopathy. CARDIOVASCULAR: Regular rate and rhythm without murmurs, gallops, or rubs. RESPIRATORY: Breath sounds equal bilaterally. No accessory muscle use. GASTROINTESTINAL: Abdomen soft, non-tender, nondistended. MUSCULOSKELETAL: No cyanosis, or edema. BACK: Nontender without obvious deformity. No CVA tenderness. Medications and IVs Current Medications Medications (Trade) Dose Ordered Sig/Fausto Route Start Time Stop Time Status Last Admin (Benadryl) 50 mg Q6H PRN PO 01/18/17 15:30 (Benadryl Inj) 50 mg Q6H PRN IM 01/18/17 15:30 (Tylenol) 650 mg Q4H PRN PO 01/18/17 15:30 01/24/17 02:58 (Milk Of Magnesia Liq) 30 ml DAILY PRN PO 01/18/17 15:30 (Mag-Al Plus Susp Liq) 30 ml Q6H PRN PO 01/18/17 15:30 (Atarax) 50 mg Q6H PRN PO 01/18/17 15:30 (Symbicort 80-4.5 Mcg Inh) 1 puff Q12HR INH 01/18/17 21:00 01/24/17 08:36 (Depakote Er) 1,500 mg DAILY PO 01/19/17 09:00 01/24/17 08:32 (Zetia) 10 mg DAILY PO 01/19/17 09:00 01/24/17 08:37 (Pravachol) 40 mg DAILY PO 01/19/17 09:00 01/24/17 08:31 (Zoloft) 100 mg DAILY PO 01/19/17 09:00 01/24/17 08:32 (Ventolin Hfa Inh) 2 puff Q6H PRN INH 01/19/17 10:00 Info 1 UNSCH .XX 01/19/17 09:15 (Buspar) 10 mg DAILY@0600,0900,1200 PO 01/19/17 12:00 01/24/17 08:36 (Buspar) 10 mg DAILY@1500,1800,2100 PO 01/19/17 15:00 01/23/17 21:29 (Vitamin D3) 2,000 units DAILY PO 01/22/17 09:00 01/24/17 08:31 (Valium) 2 mg BID PO 01/22/17 09:00 01/24/17 08:31 ([place] Thyroid) 60 mg DAILY PO 01/23/17 09:00 01/24/17 08:32 (Abilify) 15 mg DAILY PO 01/24/17 09:00 01/24/17 08:31 Assessment and Plan Problem List: (1) Elevated TSH ICD Codes: R94.6 - Abnormal results of thyroid function studies Status: Acute (2) Asthma ICD Codes: J45.909 - Unspecified asthma, uncomplicated (3) Hyperlipemia ICD Codes: E78.5 - Hyperlipidemia, unspecified Status: Acute (4) Paranoid type schizophrenia, chronic state with acute exacerbation ICD Codes: F20.0 - Paranoid schizophrenia Status: Acute Assessment and Plan 01/22/17 Paranoid schizophrenia: Psych managing. Patient is alert and cooperative Hypothyroidism: Levothyroxine discontinued. Patient hypothyroidism was well controlled on [place] thyroid in past will order. TSH recheck in 6 weeks. Asthma: No SOB continue Symbicort HLD: continue statin will check lipid panel Vitamin D deficiency; continue replacement. 01/24/17 Paranoid schizophrenia: Psych managing. Patient is alert and cooperative Hypothyroidism: On [place] thyroid. TSH recheck in 6 weeks. Will obtain Thyroid US Asthma: No SOB continue Symbicort HLD: continue zetia Vitamin D deficiency; continue replacement. I and the SOCIAL MEDIA PROJECT MANAGER have both examined this patient and reviewed this note and I agree with these findings and plan of care. Nola Alvarez SOCIAL MEDIA PROJECT MANAGER Jan 24, 2017 11:02
[2017-01-24] MEDS ORDERED: LACTULOSE SYRUP 20 GM/30 ML CUP PO SCH (12:15)
[2017-01-24] MEDS ORDERED: ARIP1TAB13 PO (12:52)
[2017-01-24] MEDS ORDERED: DEPA500T3 PO (12:52)
[2017-01-24] MEDS ORDERED: Lactulose Liq PO (12:52)
[2017-01-24] MEDS ORDERED: VITA1000 PO (12:52)
[2017-01-24] MEDS ORDERED: ARMO60TA PO (12:52)
[2017-01-24] MEDS ORDERED: DIAZ2 PO (12:52)
--- NOTE | 2017-01-24 12:53 | HHI.DS ---
Psychiatry Discharge Summary Inpatient Psychiatric care?: Yes Advance Directive: No Reason Not Provided: WANTS TO READ DOCUMENT Mental Health AdvanceDirective: No Health Care Proxy: No Admission Admission Date Jan 18, 2017 at 15:22 Admission Diagnosis: (1) Schizophrenia ICD Code: F20.9 - Schizophrenia, unspecified Brief History Mr. Martinez is a 41-year-old male with a history of paranoid schizophrenia who presented to the ED for psychiatric evaluation. He was seen in consultation by Dr. Alfredo. Reviewing the electronic medical record, I note the patient was admitted under my care in October of this year. Patient seen and examined. Chart reviewed. Case discussed with nursing staff. Patient reports that he is struggling with the "same stuff." He reports that he was nonadherent with his psychotropic medications after leaving the hospital because his psychiatrist dropped him from his practice because of medication nonadherence and so he could not get refills. Off of his psychotropics he has been feeling increasingly depressed. He also endorses speaking "to Godson goddesses." Feeling somewhat more irritable and anxious. Denies homicidal ideation per se but does admit to feeling quite generally angry. No specific victim. Denies suicidal ideation. No hypomanic or manic symptoms. Remainder of the psychiatric ROS is negative. Past psychiatric history: Denies any interval psychiatric admissions or suicide attempts since he was last here at [place]. Not currently under the care of a psychiatrist. Family history: Is unchanged from previous assessment. Chemical dependency history: The patient reports that he has stopped smoking K2. He has been drinking a little bit more heavily on the weekends but denies daily drinking. He denies any blackouts. Social history: Unchanged from previous assessment except that the patient is now residing with his brother. Tobacco Use In Past 30 Days: No Tobacco Past 30 Days Alcohol Use: Never Hospital Course Patient was admitted to a locked, inpatient psychiatric unit. A general medical consultation was obtained. Appropriate precautions were in place throughout patient's hospital stay. Patient was seen and examined daily on the unit by psychiatry and also visited by counselor. Psychotropic medications were adjusted. The patient was started on long-acting injectable Abilify Maintena. Patient had improvement in presenting psychiatric symptomatology during the course of his hospital stay. There is no evidence of any suicidality or homicidality on the inpatient unit. The patient remained in good behavioral control and was medication compliant. On the day of discharge: Patient seen and examined. Chart reviewed. Case discussed with nursing staff. On my examination this morning, the patient is requesting discharge from the inpatient psychiatric unit. He denies any suicidal or homicidal ideation, intent or plan on direct questioning and contracts for safety. No ongoing anger /irritability. Mood is stable. No depressive or hypomanic/manic symptoms. He denies audiovisual hallucinations at this time, although he did hear someone calling his name this morning. No delusions elicited. Denies side effects from medications. Feels like medications are "working good." No physical complaints. Case discussed with [employer] from hospitalist service. She reports that patient may be discharged from medical standpoint. Thyroid ultrasound is part of outpatient workup and not essential for discharge today. Patient's repeat VPA level is 118, but once again this was drawn post-dose and so over- represents true VPA level. In any event, patient has no symptoms or signs of Depakote toxicity, and even if this level were accurate, it would be within the acceptable range for psychiatric indication. Likewise, ammonia level is elevated but patient has no signs of hyperammonemic encephalopathy. I have made the patient aware of this issue and discussed with him that I will start lactulose today and on discharge to lower the ammonia level. I have counseled him that this medication will increase BM frequency among other side effects. He is to get an updated pre-dose Depakote and ammonia level in a week. I have further provided psychoeducation regarding the need for temporary oral supplementation of Abilify Maintena with oral Abilify. Weighing the acute, chronic, and protective factors and based on the available evidence, I patriot missile air defense artillery to a reasonable degree of medical certainty that the patient is at low imminent risk of harm to self or others from a mental illness as defined under the Lazo act and his level of function is adequate for outpatient care. The patient does not meet criteria for involuntary psychiatric hospitalization at this time. He is requesting discharge from the inpatient psychiatric unit today and so I am obliged to discharge him with outpatient psychiatric follow-up as arranged by counselor. Patient is also to follow-up with primary care. I have counseled patient regarding warning signs for need to return to the psychiatric emergency room as part of a general safety plan. Results Blood Pressure 104 / 76 Vital Signs Date Time Temp Pulse Resp B/P (MAP) Pulse Ox O2 Delivery O2 Flow Rate FiO2 01/24/17 06:03 97.6 75 16 104/76 (85) 95 Laboratory Tests Test 01/22/17 11:05 01/23/17 12:51 01/24/17 10:46 Creatinine 1.35 MG/DL (0.60-1.30) 1.50 MG/DL (0.60-1.30) Carbon Dioxide Level 33.5 MEQ/L (21.0-32.0) 34.0 MEQ/L (21.0-32.0) Estimat Glomerular Filtration Rate 58 ML/MIN (>89) 52 ML/MIN (>89) Blood Urea Nitrogen 20 MG/DL (7-18) Random Glucose 141 MG/DL (74-106) Chloride Level 97 MEQ/L (98-107) Ammonia 79 MCMOL/L (11-32) 116 MCMOL/L (11-32) Triglycerides Level 458 MG/DL (42-150) HDL Cholesterol 32.7 MG/DL (40.0-60.0) Valproic Acid (Depakene) Level 114 MCG/ML (50-100) 118 MCG/ML (50-100) Laboratory Results Test 01/19/17 09:09 01/23/17 12:51 01/24/17 10:46 Hemoglobin A1c 6.2 % (4.3-6.0) Cholesterol Level 164 MG/DL (120-200) HDL Cholesterol 32.7 MG/DL (40.0-60.0) LDL Cholesterol MG/DL (0-99) Triglycerides Level 458 MG/DL (42-150) Valproic Acid (Depakene) Level 118 MCG/ML (50-100) Summary of Procedures None done Imaging Thyroid ultrasound to be obtained prior to discharge. Pending results at discharge: No Medications # of Antipsychotic meds at D/C: 1 Appropriate >1 Antipsych meds?: 1 Approp Antipsych med options 1 - Minimum of three failed multiple trials of monotherapy. 2 - Documented plan to taper to monotherapy due to previous use of multiple meds OR cross-taper in progress at D/C. 3 - Documentation of augmentation of Clozapine. 4 - Justification other than those listed in allowable values 1-3, document here : Discharge Discharge Date: Jan 24, 2017 Discharge Diagnosis: (1) Schizophrenia Diagnosis: Principal (stabilized) ICD Code: F20.9 - Schizophrenia, unspecified Status: Acute Mental Status Exam at Disch Patient is in hospital attire. Patient is well groomed. Patient is awake and alert and oriented 3. No evidence of delirium. No motor abnormalities appreciated. Speech is within normal limits for rate, tone, volume. Language and fund of knowledge average. Focus and concentration intact. Memory grossly intact on clinical exam. Mood is stable. Affect is fairly full and reactive. Thought process linear. No delusions elicited. Denies audiovisual hallucinations at this time and does not appear internally stimulated. Denies suicidal or homicidal ideation, intent, or plan and contracts for safety. Insight and judgment seem fair. Pt Condition on Discharge: Stable Discharge Disposition: Discharge Home Discharge Instructions Diet Instructions: As Tolerated, No Restrictions Activities you can perform: Weight Bearing as Linda Scheduled Appointment: as per counselor's notes New Orders: AMMONIA - 1 Week DEPAKENE - 1 Week TSH 3RD GEN - 6 Weeks New Medications: Aripiprazole Maintena Dual Chamber Inj (Abilify Maintena Dual Chamber Inj) 400 Mg Inj 400 MG IM Q28D for Mental Health, #1 SYRINGE 0 Refills This dose of Abilify Maintena is due on 02/21/2017. Aripiprazole (Aripiprazole) 15 Mg Tab 15 MG PO DAILY for Mental Health for 14 Days, TAB 0 Refills Take oral Abilify for 14 days then stop. Be sure to get your next Abilify Maintena injection. Cholecalciferol (D 1000) 1,000 Unit Tab 2000 UNITS PO DAILY for Low vitamin D for 15 Days, TAB 1 Refill Thyroid ([place] Thyroid) 60 Mg Tab 60 MG PO DAILY for Thyroid for 15 Days, TAB 1 Refill [Lactulose Liq] () 30 ML SYRP 30 ML PO BID for Side effect management for 15 Days, 1 Refill Changed Medications: Diazepam (Valium) 2 Mg Tab 2 MG PO BID for Health for 15 Days, TAB 1 Refill (Changed from: TID; 0; Refills : 0; Removed Instructions) Continued Medications: Albuterol 8.5 GM Inh (Proair Hfa 8.5 GM Inh) 90 Mcg/Act Aer 2 PUFF INH Q4-6H PRN for SHORTNESS OF BREATH, #1 INHALER 0 Refills 108 mcg/actuation Budesonide-Formoterol Inh (Symbicort Inh) 80-4.5 Mcg/Act Aero 1 PUFF INH Q12HR for Asthma Management, #1 INHALER 0 Refills Buspirone (Buspirone) 10 Mg Tab 10 MG PO DIRECTED for Mental Health for 10 Days, TAB 2 Refills Take 10mg PO 6 times daily. Divalproex ER (Depakote ER) 500 Mg Sharon 1500 MG PO DAILY for Mental Health for 15 Days, TAB 1 Refill (This prescription has been renewed) Ezetimibe (Zetia) 10 Mg Tab 10 MG PO DAILY, #30 TAB 0 Refills Lovastatin (Lovastatin) 40 Mg Tab 40 MG PO DAILY for Cholesterol Management, #30 TAB 0 Refills Sertraline (Sertraline) 100 Mg Tab 100 MG PO DAILY for Mental health for 15 Days, TAB 1 Refill Discontinued Medications: Levothyroxine (Levothyroxine) 200 Mcg Tab 200 MCG PO DAILY for Thyroid, #30 TAB 0 Refills Discharge Time > 30 minutes Discharge/Advance Care Plan Health Problems: (1) Paranoid type schizophrenia, chronic state with acute exacerbation Goals to promote your health * To prevent worsening of your condition and complications * To maintain your health at the optimal level Directions to meet your goals Take your medications as prescribed Follow your dietary instruction Follow activity as directed Keep your appointments as scheduled Take your immunizations and boosters as scheduled If your symptoms worsen call your PCP, if no PCP go to Urgent Care Center or Emergency Room For 10/12 questions related to your inpatient stay or results of tests pending at discharge, please contact Dr. Tiago Díaz at Smoking is Dangerous to Your Health. Avoid second hand smoking Problem Qualifiers (1) Schizophrenia: Qualified Codes: F20.0 - Paranoid schizophrenia Tiago Díaz MD Jan 24, 2017 12:53
[2017-01-24] MEDS ORDERED: ARIP10IN IM (13:04)
[2017-01-24] MEDS ORDERED: ARIPIPRAZOLE 400 MG IM SCH (14:00)
--- NOTE | 2017-01-24 15:23 | RADRPT ---
EXAM DATE/TIME: 01/24/2017 13:21 [facility] COMPARISON: No previous studies available for comparison. INDICATIONS : Abnormal lab values. MEDICAL HISTORY : Carcinoma, thyroid. Asthma. Scizophrenia. Depression. Anxiety. Substance use. SURGICAL HISTORY : Thyroidectomy. ENCOUNTER: Initial ACUITY: 1 day PAIN SCORE: 0/10 LOCATION: Bilateral neck MEASUREMENTS: RIGHT LOBE: Surgically absent LEFT LOBE: Surgically absent FINDINGS: The thyroid gland is surgically absent. No masses are identified. No abnormally enlarged lymph nodes are identified. CONCLUSION: 1. Thyroidectomy without evidence of mass Tiago Norwood MD on January 24, 2017 at 15:20 Board Certified Radiologist. This report was verified electronically.
== END 2017-01-24 14:55 | disposition home or self-care (01) | DRG 885 ==
LOC: NEPC 07:53 → NEDA 15:22 → H270 17:00
PROVIDERS: ADMIT Psychiatry & Neurology Psychiatry; ATTEND Psychiatry & Neurology Psychiatry
DX: F20.0 Paranoid schizophrenia (principal); R45.850 Homicidal ideations; R45.851 Suicidal ideations; E55.9 Vitamin D deficiency, unspecified; F32.9 Major depressive disorder, single episode, unspecified; F41.9 Anxiety disorder, unspecified; J45.909 Unspecified asthma, uncomplicated; E78.5 Hyperlipidemia, unspecified; E89.0 Postprocedural hypothyroidism; Z81.8 Family history of other mental and behavioral disorders; Z92.3 Personal history of irradiation; Z91.14 Patient's other noncompliance with medication regimen; Z85.850 Personal history of malignant neoplasm of thyroid
CPT/HCPCS: 76536; 80048; 80053; 80061; 80164; 80307; 82140; 82306; 82607; 83036; 84443; 85025; 85027; 93005

== ENCOUNTER 2017-03-07 15:33 | Inpatient (IN) | payer OTHER, MEDICARE ==
[~2017-03-07] VITALS: Ht 182.9 cm; Wt 106.5 kg
[~2017-03-07 15:33] MED LIST changes: +ARIP10IN IM; +ARIP1TAB13 PO; +ARMO60TA PO; +DEPA500T3 PO; -LEVO200T4 PO; +Lactulose Liq PO; -THIO1CAP PO; +VITA1000 PO
[2017-03-07 15:35] VITALS: BP 137/80; PULSE 105; RESP 18; TEMP 97.6; O2SAT 97
[2017-03-07] MEDS ORDERED: LEVO.05 PO (15:58)
--- NOTE | 2017-03-07 16:30 | PD ---
HPI Chief Complaint: Psychiatric Symptoms Time Seen by Provider: 15:42 Travel History International Travel<30 days: No Contact w/Intl Traveler<30days: No Traveled to known affect area: No History of Present Illness HPI Patient comes in complaining of voices in his head getting worse. Patient reports taking all his medications as prescribed however the past week the voices have been getting worse. Patient reports thoughts of hurting himself or hurting others but denies any actual plans. Patient reports a history of previous suicide attempts in various ways. Patient denies any medical complaints at this time. Denies any chest pain, shortness of breath, fevers, abdominal pain, headache, numbness tingling anywhere, or loss of bowel or bladder. Patient denies anything making his symptoms better or worse. PFSH Past Medical History Arthritis: No Asthma: Yes Autoimmune Disease: No Anxiety: Yes Depression: Yes Heart Rhythm Problems: No Cancer: No Cardiovascular Problems: No High Cholesterol: Yes Chemotherapy: No Chest Pain: No Congestive Heart Failure: No COPD: No Cerebrovascular Accident: No Diabetes: No Diminished Hearing: No Endocrine: No GERD: No Genitourinary: No Headaches: No Hiatal Hernia: No Implanted Vascular Access Dvce: No Kidney Stones: No Medical other: Yes (PTSD) Musculoskeletal: No Neurologic: No Psychiatric: Yes (Hx of treatment for Schizophrenia) Reproductive: No Respiratory: No Immunizations Current: Yes Migraines: No Radiation Therapy: No Renal Failure: No Schizophrenia: Yes Seizures: No Sickle Cell Disease: No Sleep Apnea: No Thyroid Disease: Yes Ulcer: No Tetanus Vaccination: < 5 Years Influenza Vaccination: No Past Surgical History Abdominal Surgery: No AICD: No Arteriovenous Shunt: No Cardiac Surgery: No Ear Surgery: No Endocrine Surgery: No Eye Surgery: No Genitourinary Surgery: No Gynecologic Surgery: No Insulin Pump: No Joint Replacement: No Neurologic Surgery: No Oral Surgery: No Pacemaker: No Thoracic Surgery: No Other Surgery: Yes (THYROIDECTOMY CANCER ) Social History Alcohol Use: Yes (occasionally) Tobacco Use: No Substance Use: No Allergies-Medications (Allergen,Severity, Reaction): Coded Allergies: haloperidol (Unverified Allergy, Intermediate, Joint Pain, 03/07/17) Reported Meds & Prescriptions Reported Meds & Active Scripts Active Abilify Maintena Dual Chamber Inj (Aripiprazole) 400 Mg Inj 400 Mg IM Q28D This dose of Abilify Maintena is due on 02/21/2017. [Lactulose Liq] 30 ML Syrp 30 Ml PO BID 15 Days D 1000 (Cholecalciferol) 1,000 Unit Tab 2,000 Units PO DAILY 15 Days Depakote ER (Divalproex Sodium) 500 Mg Sharon 1,500 Mg PO DAILY 15 Days Valium (Diazepam) 2 Mg Tab 2 Mg PO BID 15 Days Buspirone (Buspirone HCl) 10 Mg Tab 10 Mg PO DIRECTED 10 Days Take 10mg PO 6 times daily. Sertraline (Sertraline HCl) 100 Mg Tab 100 Mg PO DAILY 15 Days Reported Synthroid (Levothyroxine Sodium) 50 Mcg Tab 50 Mcg PO DAILY Symbicort Inh (Budesonide/Formoterol Fumarate) 80-4.5 Mcg/Act Aero 1 Puff INH Q12HR Proair Hfa 8.5 GM Inh (Albuterol Sulfate) 90 Mcg/Act Aer 2 Puff INH Q4-6H PRN 108 mcg/actuation Lovastatin 40 Mg Tab 40 Mg PO DAILY Zetia (Ezetimibe) 10 Mg Tab 10 Mg PO DAILY Review of Systems Except as stated in HPI: all other systems reviewed are Neg Physical Exam Narrative GENERAL: Well-developed, overly nourished, in no acute distress, and non-ill appearing. SKIN: Focused skin assessment warm and dry. HEAD: Atraumatic. Normocephalic. EYES: Pupils equal and round. EOMI. No scleral icterus. No injection or drainage. ENT: No nasal bleeding or discharge. Mucous membranes pink and moist. NECK: Trachea midline. No JVD. Supple. No nuclear rigidity. CARDIOVASCULAR: Regular rate and rhythm. No murmur appreciated. RESPIRATORY: No accessory muscle use. No respiratory distress. Clear to auscultation. Breath sounds equal bilaterally. GASTROINTESTINAL: Abdomen soft, non-tender, nondistended, and no guarding. Hepatic and splenic margins not palpable. No pulsatile mass. MUSCULOSKELETAL: No obvious deformities. No clubbing. No cyanosis. No edema. Full range of motion. NEUROLOGICAL: Awake and alert. No obvious cranial nerve deficits. Motor grossly within normal limits. Normal speech. PSYCHIATRIC: Appropriate mood and affect. Data Data Last Documented VS Vital Signs Date Time Temp Pulse Resp B/P (MAP) Pulse Ox O2 Delivery O2 Flow Rate FiO2 03/07/17 15:35 97.6 105 18 137/80 (99) 97 Orders Orders Complete Blood Count With Diff (03/07/17 15:48) Comprehensive Metabolic Panel (03/07/17 15:48) Valproic Acid (Depakene) (03/07/17 15:48) Psych Screen (03/07/17 15:48) Drug Screen, Random Urine (03/07/17 15:48) Alcohol (Ethanol) (03/07/17 15:48) Salicylates (Aspirin) (03/07/17 15:48) Tylenol (Acetaminophen) (03/07/17 15:48) Labs Laboratory Tests Test 03/07/17 15:49 03/07/17 15:59 White Blood Count 10.2 TH/MM3 Red Blood Count 5.23 MIL/MM3 Hemoglobin 16.1 GM/DL Hematocrit 48.0 % Mean Corpuscular Volume 91.8 FL Mean Corpuscular Hemoglobin 30.7 PG Mean Corpuscular Hemoglobin Concent 33.5 % Red Cell Distribution Width 15.1 % Platelet Count 299 TH/MM3 Mean Platelet Volume 8.3 FL Neutrophils (%) (Auto) 76.4 % Lymphocytes (%) (Auto) 13.2 % Monocytes (%) (Auto) 6.4 % Eosinophils (%) (Auto) 3.3 % Basophils (%) (Auto) 0.7 % Neutrophils # (Auto) 7.8 TH/MM3 Lymphocytes # (Auto) 1.3 TH/MM3 Monocytes # (Auto) 0.7 TH/MM3 Eosinophils # (Auto) 0.3 TH/MM3 Basophils # (Auto) 0.1 TH/MM3 CBC Comment DIFF FINAL Differential Comment Blood Urea Nitrogen 16 MG/DL Creatinine 1.48 MG/DL Random Glucose 105 MG/DL Total Protein 8.0 GM/DL Albumin 4.6 GM/DL Calcium Level 9.7 MG/DL Alkaline Phosphatase 83 U/L Aspartate Amino Transf (AST/SGOT) 14 U/L Alanine Aminotransferase (ALT/SGPT) 23 U/L Total Bilirubin 0.8 MG/DL Sodium Level 136 MEQ/L Potassium Level 4.4 MEQ/L Chloride Level 100 MEQ/L Carbon Dioxide Level 28.3 MEQ/L Anion Gap 8 MEQ/L Estimat Glomerular Filtration Rate 52 ML/MIN Salicylates Level LESS THAN 1.7 MG/DL Acetaminophen Level LESS THAN 2.0 MCG/ML Valproic Acid (Depakene) Level 63 MCG/ML Ethyl Alcohol Level LESS THAN 3 MG/DL Urine Opiates Screen NEG Urine Barbiturates Screen NEG Urine Amphetamines Screen NEG Urine Benzodiazepines Screen POS Urine Cocaine Screen NEG Urine Cannabinoids Screen NEG MDM Medical Decision Making Medical Screen Exam Complete: Yes Emergency Medical Condition: Yes Differential Diagnosis Homicidal, suicidal, subtherapeutic Depakote, auditory hallucinations, schizophrenia, electrolyte abnormality, other Narrative Course Patient was seen and examined. Patient was placed under Lazo act by Dr. Beltran. Labs were obtained and reviewed. Patient medically cleared for further treatment and evaluation by psych. Final disposition per psych. Diagnosis Primary Impression: Auditory hallucinations Additional Impressions: Medical clearance for psychiatric admission Suicidal thoughts Condition: Stable Evans Jimenez Mar 07, 2017 16:29
[2017-03-07 16:57] LABS: AUTOMATED NEUTROPHIL # 7.8 TH/MM3 (1.8-7.7); BASOPHIL # 0.1 TH/MM3 (0-0.2); BASOPHIL % 0.7 % (0.0-2.0); EOSINOPHIL # 0.3 TH/MM3 (0-0.4); EOSINOPHIL % 3.3 % (0.0-4.0); HEMO FLAGS DIFF FINAL; LYMPH % 13.2 % (9.0-44.0); LYMPHOCYTE # 1.3 TH/MM3 (1.0-4.8); MEAN CELL VOLUME 91.8 FL (80.0-100.0); MEAN CORPUSCULAR HEMOGLOBIN 30.7 PG (27.0-34.0); MEAN CORPUSCULAR HGB CONC 33.5 % (32.0-36.0); MONO % 6.4 % (0.0-8.0); NEUT % 76.4 % (16.0-70.0); PLATELET COUNT 299 TH/MM3 (150-450); RED BLOOD COUNT 5.23 MIL/MM3 (4.50-5.90); RED CELL DISTRIBUTION WIDTH 15.1 % (11.6-17.2); WHITE BLOOD COUNT 10.2 TH/MM3 (4.0-11.0)
[2017-03-07 17:18] LABS: ANION GAP 8 MEQ/L (5-15); AST (GOT) 14 U/L (15-37); BICARBONATE 28.3 MEQ/L (21.0-32.0); BLOOD UREA NITROGEN 16 MG/DL (7-18); CHLORIDE 100 MEQ/L (98-107); GLOMERULAR FILTRATION RATE 52 ML/MIN (>89); POTASSIUM 4.4 MEQ/L (3.5-5.1); SODIUM (NA) 136 MEQ/L (136-145)
[2017-03-07 17:21] LABS: ALKALINE PHOSPHATASE 83 U/L (45-117); ALT (GPT) 23 U/L (12-78); TOTAL BILIRUBIN ADULT 0.8 MG/DL (0.2-1.0)
[2017-03-07 17:22] LABS: ALCOHOL LESS THAN 3 MG/DL (0-5)
[2017-03-07 17:23] LABS: ACETAMINOPHEN LESS THAN 2.0 MCG/ML (10.0-30.0)
[2017-03-07] MEDS: PRAVASTATIN SOD 40 MG TAB PO SCH (20:30)
[2017-03-07] MEDS: NICOTINE 21 MG/24 HR PATCH T-DERMAL SCH (20:30)
[2017-03-07] MEDS ORDERED: LORazepam 1 MG TAB PO PRN (20:30)
[2017-03-07] MEDS: SERTRALINE HCL 100 MG TAB PO SCH (20:30)
[2017-03-07] MEDS ORDERED: ALUMINUM/MAGNESIUM/SIMETH 30 ML CUP PO PRN (20:30)
[2017-03-07] MEDS ORDERED: ACETAMINOPHEN 325 MG TAB PO PRN (20:30)
[2017-03-07] MEDS ORDERED: LORazepam 0.5 MG TAB PO PRN (20:30)
[2017-03-07] MEDS ORDERED: LORazepam 2 MG/ML VIAL IM PRN ×2 (20:30)
[2017-03-07] MEDS ORDERED: MAGNESIUM HYDROXIDE SUSP 30 ML CUP PO PRN (20:30)
[2017-03-07] MEDS: BUDESONIDE-FORMOTEROL 80/4.5 MCG INHALER INH SCH (21:00)
[2017-03-07] MEDS: DIAZEPAM 2 MG TAB PO SCH (21:00)
[2017-03-07 22:23] VITALS: BP 117/76; PULSE 80; RESP 18; TEMP 97.6; O2SAT 98
[2017-03-08 05:54] VITALS: BP 105/64; PULSE 64; RESP 18; TEMP 97.6; O2SAT 97
[2017-03-08] MEDS ORDERED: LEVOTHYROXINE SODIUM 50 MCG TAB PO SCH (06:00)
[2017-03-08] MEDS: NICOTINE 21 MG/24 HR PATCH T-DERMAL SCH (09:00)
[2017-03-08] MEDS: REMOVE OLD NICODERM (NICOTINE) PATCH T-DERMAL SCH (09:00)
[2017-03-08] MEDS: SERTRALINE HCL 100 MG TAB PO SCH (09:39)
[2017-03-08] MEDS: PRAVASTATIN SOD 40 MG TAB PO SCH (09:39)
[2017-03-08] MEDS: DIVALPROEX SODIUM E.R. 500 MG TAB PO SCH (09:39)
[2017-03-08] MEDS: DIAZEPAM 2 MG TAB PO SCH ×2 (09:39→20:39)
[2017-03-08] MEDS: BUDESONIDE-FORMOTEROL 80/4.5 MCG INHALER INH SCH ×2 (09:40→20:39)
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
[2017-03-08 10:44] LABS: ANION GAP 7 MEQ/L (5-15); BICARBONATE 31.8 MEQ/L (21.0-32.0); BLOOD UREA NITROGEN 17 MG/DL (7-18); CHLORIDE 98 MEQ/L (98-107); GLOMERULAR FILTRATION RATE 54 ML/MIN (>89); HDL CHOLESTEROL 40.5 MG/DL (40.0-60.0); LDL CHOLESTEROL 48 MG/DL (0-99); POTASSIUM 3.6 MEQ/L (3.5-5.1); SODIUM (NA) 137 MEQ/L (136-145)
[2017-03-08] MEDS ORDERED: ALBUTEROL SULFATE 90 MCG/ACT HFA 8 GM INHALER INH PRN (10:45)
[2017-03-08] MEDS: ARIPiprazole 15 MG TAB PO SCH (12:24)
[2017-03-08] MEDS: busPIRone HCL 10 MG TAB PO SCH ×2 (13:31→20:40)
[2017-03-08 15:39] LABS: HEMOGLOBIN A1a 1.1 %; HEMOGLOBIN A1b 1.7 %; HEMOGLOBIN Ao 85.5 %; HEMOGLOBIN LA1C 2.2 %; HEMOGLOBIN P3 3.5 %
[2017-03-08 18:07] VITALS: BP 125/70; PULSE 18; RESP 18; TEMP 97.7; O2SAT 100
[2017-03-08] MEDS: LACTULOSE SYRUP 20 GM/30 ML CUP PO SCH (20:38)
[2017-03-09 05:41] VITALS: BP 136/85; PULSE 62; RESP 18; TEMP 97.4; O2SAT 95
[2017-03-09] MEDS: busPIRone HCL 10 MG TAB PO SCH ×3 (06:06→22:00)
[2017-03-09] MEDS: DIVALPROEX SODIUM E.R. 500 MG TAB PO SCH (07:46)
[2017-03-09] MEDS: LACTULOSE SYRUP 20 GM/30 ML CUP PO SCH ×2 (07:46→21:00)
[2017-03-09] MEDS: CHOLECALCIFEROL (VIT D3) 1000 UNIT TAB PO SCH (07:46)
[2017-03-09] MEDS: SERTRALINE HCL 100 MG TAB PO SCH (07:46)
[2017-03-09] MEDS: EZETIMIBE 10 MG TAB PO SCH (07:47)
[2017-03-09] MEDS: DIAZEPAM 2 MG TAB PO SCH ×2 (07:47→21:00)
[2017-03-09] MEDS: PRAVASTATIN SOD 40 MG TAB PO SCH (07:47)
[2017-03-09] MEDS: ARIPiprazole 15 MG TAB PO SCH (07:47)
[2017-03-09] MEDS: REMOVE OLD NICODERM (NICOTINE) PATCH T-DERMAL SCH ×2 (07:48→09:00)
[2017-03-09] MEDS: NICOTINE 21 MG/24 HR PATCH T-DERMAL SCH ×2 (07:48→09:00)
[2017-03-09] MEDS: BUDESONIDE-FORMOTEROL 80/4.5 MCG INHALER INH SCH ×2 (07:49→21:00)
[2017-03-09] MEDS: THYROID 60 MG TAB PO SCH (07:49)
--- NOTE | 2017-03-09 13:21 | HHI.PYPN ---
Subjective Remarks Pt seen and discussed with staff. Chart reviewed. He as been compliant and cooperative with care.AH persist. He is compliant with medications and denies SI /HI. He has been isolated to room. . NO behavioral problems. Mental Status Examination Appearance: Disheveled Consciousness: Alert Orientation: x4 Motor Activity: Other (no motor abnormalities noted) Speech: Unremarkable Language: Adequate Fund of Knowledge: Adequate Attention and Concentration: Adequate Memory: Unremarkable Mood: Other ("agitated") Affect: Other (mildly restricted and dysphoric) Thought Process & Associations: Logical, Linear Hallucination Type: Auditory (as above) Delusion Type: None Suicidal Ideation: No Suicidal Plan: No Suicidal Intention: No Homicidal Ideation: No Homicidal Plan: No Homicidal Intention: No Insight: Fair Judgment: Impulsive Results Vitals/IOs Vital Signs Date Time Temp Pulse Resp B/P (MAP) Pulse Ox O2 Delivery O2 Flow Rate FiO2 03/09/17 05:41 97.4 62 18 136/85 (102) 95 Assessment & Plan Problem List: (1) Schizophrenia ICD Codes: F20.9 - Schizophrenia, unspecified Status: Acute (2) Amphetamine abuse ICD Codes: F15.10 - Other stimulant abuse, uncomplicated Assessment & Plan Continue current tx plan. Estimated LOS: days Justification for Cont. Inpt. impairments in reality testing . Request HC Surrog/Guard Advoc?: No Problem Qualifiers (1) Schizophrenia: Qualified Codes: F20.0 - Paranoid schizophrenia Rosa M Skelton MD Mar 09, 2017 13:21
[2017-03-09 17:35] VITALS: BP 138/83; PULSE 76; RESP 17; TEMP 98; O2SAT 94
[2017-03-10 05:15] VITALS: BP 138/84; PULSE 87; RESP 18; TEMP 98.1; O2SAT 96
[2017-03-10] MEDS: busPIRone HCL 10 MG TAB PO SCH ×3 (05:31→21:00)
[2017-03-10] MEDS: REMOVE OLD NICODERM (NICOTINE) PATCH T-DERMAL SCH (09:00)
[2017-03-10] MEDS: ARIPiprazole 15 MG TAB PO SCH (09:00)
[2017-03-10] MEDS: THYROID 60 MG TAB PO SCH (09:00)
[2017-03-10] MEDS: PRAVASTATIN SOD 40 MG TAB PO SCH (09:08)
[2017-03-10] MEDS: LACTULOSE SYRUP 20 GM/30 ML CUP PO SCH ×2 (09:08→20:58)
[2017-03-10] MEDS: EZETIMIBE 10 MG TAB PO SCH (09:08)
[2017-03-10] MEDS: DIAZEPAM 2 MG TAB PO SCH ×2 (09:08→20:58)
[2017-03-10] MEDS: BUDESONIDE-FORMOTEROL 80/4.5 MCG INHALER INH SCH ×2 (09:08→20:59)
[2017-03-10] MEDS: CHOLECALCIFEROL (VIT D3) 1000 UNIT TAB PO SCH (09:08)
[2017-03-10] MEDS: SERTRALINE HCL 100 MG TAB PO SCH (09:08)
[2017-03-10] MEDS: NICOTINE 21 MG/24 HR PATCH T-DERMAL SCH (09:09)
[2017-03-10] MEDS: DIVALPROEX SODIUM E.R. 500 MG TAB PO SCH (09:09)
--- NOTE | 2017-03-10 14:28 | HHI.PYPN ---
Subjective Remarks Pt seen and discussed with staff. He has been staying in room and c/o feeling down. He is compliant with medications. He reports AH persist but have diminished some. He remains disheveled. Mental Status Examination Appearance: Disheveled Consciousness: Alert Orientation: x4 Motor Activity: Other (no motor abnormalities noted) Speech: Unremarkable Language: Adequate Fund of Knowledge: Adequate Attention and Concentration: Adequate Memory: Unremarkable Mood: Other ("agitated") Affect: Other (mildly restricted and dysphoric) Thought Process & Associations: Logical, Linear Hallucination Type: Auditory (as above) Delusion Type: None Suicidal Ideation: No Suicidal Plan: No Suicidal Intention: No Homicidal Ideation: No Homicidal Plan: No Homicidal Intention: No Insight: Fair Judgment: Impulsive Results Vitals/IOs Vital Signs Date Time Temp Pulse Resp B/P (MAP) Pulse Ox O2 Delivery O2 Flow Rate FiO2 03/10/17 05:15 98.1 87 18 138/84 (102) 96 Assessment & Plan Problem List: (1) Schizophrenia ICD Codes: F20.9 - Schizophrenia, unspecified Status: Acute (2) Amphetamine abuse ICD Codes: F15.10 - Other stimulant abuse, uncomplicated Assessment & Plan Continue current tx plan Estimated LOS: days Justification for Cont. Inpt. impairments in reality testing Request HC Surrog/Guard Advoc?: No Problem Qualifiers (1) Schizophrenia: Qualified Codes: F20.0 - Paranoid schizophrenia Rosa M Skelton MD Mar 10, 2017 14:27
[2017-03-10 17:15] VITALS: BP 125/76; PULSE 98; RESP 17; TEMP 98.6; O2SAT 98
[2017-03-11] MEDS: busPIRone HCL 10 MG TAB PO SCH ×3 (06:00→20:55)
[2017-03-11 06:04] VITALS: BP 118/74; PULSE 81; RESP 16; TEMP 97.9; O2SAT 95
[2017-03-11] MEDS: NICOTINE 21 MG/24 HR PATCH T-DERMAL SCH (09:00)
[2017-03-11] MEDS: ARIPiprazole 15 MG TAB PO SCH (09:00)
[2017-03-11] MEDS: REMOVE OLD NICODERM (NICOTINE) PATCH T-DERMAL SCH (09:00)
[2017-03-11] MEDS: CHOLECALCIFEROL (VIT D3) 1000 UNIT TAB PO SCH (09:00)
[2017-03-11] MEDS: PRAVASTATIN SOD 40 MG TAB PO SCH (09:26)
[2017-03-11] MEDS: EZETIMIBE 10 MG TAB PO SCH (09:26)
[2017-03-11] MEDS: LACTULOSE SYRUP 20 GM/30 ML CUP PO SCH ×2 (09:26→20:55)
[2017-03-11] MEDS: BUDESONIDE-FORMOTEROL 80/4.5 MCG INHALER INH SCH ×2 (09:26→20:55)
[2017-03-11] MEDS: SERTRALINE HCL 100 MG TAB PO SCH (09:26)
[2017-03-11] MEDS: DIAZEPAM 2 MG TAB PO SCH ×2 (09:26→20:55)
[2017-03-11] MEDS: DIVALPROEX SODIUM E.R. 500 MG TAB PO SCH (09:27)
[2017-03-11] MEDS: THYROID 60 MG TAB PO SCH (09:27)
--- NOTE | 2017-03-11 14:08 | HHI.PYPN ---
Subjective Remarks Patient seen and examined with nurse. Chart reviewed. Case discussed with nursing staff. On my examination today, mood is reportedly improved. He denies AVH at this time. He says that when he sleeps better with the benefit of medications his audiovisual hallucinations often go away. He denies any suicidal or homicidal ideation. He is future oriented. He says that his thought process is not as chaotic as it was at admission. He is looking forward to being linked with the FACT team in [place] and notes that [facility] family day care provider is arranging for transitional housing in that area. Denies side effects from medications. Agreeable to receiving Abilify Maintena injection today as he is overdue for this. No physical complaints. Review of Systems Except as stated in HPI: all other systems reviewed are Neg Mental Status Examination Appearance: Appropriate Consciousness: Alert Orientation: x4 Motor Activity: Other (no hand tremor, no dystonia, no dyskinesias noted.) Speech: Unremarkable Language: Adequate Fund of Knowledge: Adequate Attention and Concentration: Adequate Memory: Unremarkable Mood: Other (improved) Affect: Blunt Thought Process & Associations: Logical, Goal directed, Linear Thought Content: Appropriate Hallucination Type: None Delusion Type: None Suicidal Ideation: No Suicidal Plan: No Suicidal Intention: No Homicidal Ideation: No Homicidal Plan: No Homicidal Intention: No Insight: Fair Judgment: Adequate (fair) Results Labs Labs reviewed. Elevated TSH noted. Vitals/IOs Vital Signs Date Time Temp Pulse Resp B/P (MAP) Pulse Ox O2 Delivery O2 Flow Rate FiO2 03/11/17 06:04 97.9 81 16 118/74 (89) 95 Assessment & Plan Problem List: (1) Schizophrenia ICD Codes: F20.9 - Schizophrenia, unspecified Status: Acute (2) Amphetamine abuse ICD Codes: F15.10 - Other stimulant abuse, uncomplicated Assessment & Plan Administer Abilify Maintena today. Continue oral Abilify supplementation. Continue other psychotropics as ordered. TSH is comparable to previous values within our system. Recheck TFTs and I will ask hospitalist to evaluate the patient to ensure that his thyroid replacement preparation does not need to be adjusted. Continue to monitor on the inpatient unit. Continue other medications and care as ordered. Justification for Cont. Inpt. Med changes. Discharge Planning Possible discharge tomorrow, Saturday Request HC Surrog/Guard Advoc?: No Problem Qualifiers (1) Schizophrenia: Qualified Codes: F20.0 - Paranoid schizophrenia Tiago Díaz MD Mar 11, 2017 14:08
[2017-03-11] MEDS ORDERED: ABILIFY MAINTENA 400 MG IM SCH (14:15)
[2017-03-11 17:22] VITALS: BP 109/73; PULSE 94; RESP 16; TEMP 98; O2SAT 99
[2017-03-11 22:11] LABS: FREE T3 1.62 PG/ML (2.18-3.98); FREE T4 0.52 NG/DL (0.76-1.46)
[2017-03-12 06:00] VITALS: BP 114/83; PULSE 77; RESP 16; TEMP 98.3; O2SAT 97
[2017-03-12] MEDS: busPIRone HCL 10 MG TAB PO SCH (06:00)
[2017-03-12] MEDS: NICOTINE 21 MG/24 HR PATCH T-DERMAL SCH (09:00)
[2017-03-12] MEDS: REMOVE OLD NICODERM (NICOTINE) PATCH T-DERMAL SCH (09:00)
[2017-03-12] MEDS ORDERED: ARIP10IN IM (09:16)
[2017-03-12] MEDS ORDERED: ARIP1TAB13 PO (09:16)
[2017-03-12] MEDS ORDERED: BUSP10TA PO (09:16)
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
[2017-03-12] MEDS: THYROID 60 MG TAB PO SCH (10:25)
[2017-03-12] MEDS: PRAVASTATIN SOD 40 MG TAB PO SCH (10:25)
[2017-03-12] MEDS: DIAZEPAM 2 MG TAB PO SCH (10:25)
[2017-03-12] MEDS: ARIPiprazole 15 MG TAB PO SCH (10:25)
[2017-03-12] MEDS: SERTRALINE HCL 100 MG TAB PO SCH (10:26)
[2017-03-12] MEDS: EZETIMIBE 10 MG TAB PO SCH (10:26)
[2017-03-12] MEDS: LACTULOSE SYRUP 20 GM/30 ML CUP PO SCH (10:26)
[2017-03-12] MEDS: DIVALPROEX SODIUM E.R. 500 MG TAB PO SCH (10:26)
[2017-03-12] MEDS: CHOLECALCIFEROL (VIT D3) 1000 UNIT TAB PO SCH (10:26)
[2017-03-12] MEDS: BUDESONIDE-FORMOTEROL 80/4.5 MCG INHALER INH SCH (10:27)
[2017-03-12] MEDS ORDERED: LEVO.15 PO (12:10)
--- NOTE | 2017-03-12 12:42 | HHI.PR ---
Objective Vital Signs Date Time Temp Pulse Resp B/P (MAP) Pulse Ox O2 Delivery O2 Flow Rate FiO2 03/12/17 06:00 98.3 77 16 114/83 (93) 97 03/11/17 17:22 98.0 94 16 109/73 (85) 99 Result Diagram: 03/08/17 0856 Nola Morillo Mar 12, 2017 12:42
--- NOTE | 2017-03-12 12:53 | PD.CONS ---
History of Present Illness Service Family Consult Requested By Attending Reason for Consult elevated TSH and discharge on Saturday. Primary Care Physician Jeff Valenzuela DO Diagnoses: (1) Elevated TSH (2) Schizophrenia (3) Hyperlipemia (4) Asthma History of Present Illness Mr. Martinez is a 41-year-old male with a history of schizophrenia who presented to the ED voluntarily complaining of suicidal ideation and hallucinations and was Lazo acted by the ED provider. Patient is well known to me from previous psychiatric admissions. Reviewing the electronic medical record, his most recent psychiatric admission here was at the beginning of January of this year. Review of Systems Respiratory: DENIES: Cough, Snoring, Wheezing Cardiovascular: DENIES: Chest pain, Palpitations, Syncope Neurologic: DENIES: Localized weakness, Poor Balance Psychiatric: COMPLAINS OF: Anxiety, Depression, DENIES: Agitation Past Family Social History Allergies: Coded Allergies: haloperidol (Unverified Allergy, Intermediate, Joint Pain, 03/07/17) Past Medical History Past Medical History Hypothyroidism Schizophrenia Asthma HLD Vitamin d Deficiency Past Surgical History Past Surgical History thyroidectomy Active Ordered Medications Current Medications Medications (Trade) Dose Ordered Sig/Fausto Route Start Time Stop Time Status Last Admin (Symbicort 80-4.5 Mcg Inh) 1 puff Q12HR INH 03/07/17 21:00 03/12/17 10:27 (Valium) 2 mg BID PO 03/07/17 21:00 03/12/17 10:25 (Depakote Er) 1,500 mg DAILY PO 03/08/17 09:00 03/12/17 10:26 (Pravachol) 40 mg DAILY PO 03/07/17 20:30 03/12/17 10:25 (Zoloft) 100 mg DAILY PO 03/07/17 20:30 03/12/17 10:26 (Ativan) 1 mg Q6H PRN PO 03/07/17 20:30 (Ativan Inj) 1 mg Q6H PRN IM 03/07/17 20:30 (Tylenol) 650 mg Q4H PRN PO 03/07/17 20:30 (Milk Of Magnesia Liq) 30 ml DAILY PRN PO 03/07/17 20:30 (Mag-Al Plus Susp Liq) 30 ml Q6H PRN PO 03/07/17 20:30 (Habitrol 21 Mg Patch.24 Hr) 1 patch DAILY T-DERMAL 03/07/17 20:30 03/10/17 09:09 Miscellaneous Information 1 DAILY T-DERMAL 03/08/17 09:00 03/10/17 09:00 (Proair Hfa Inh) 2 puff Q4H PRN INH 03/08/17 10:45 (Vitamin D3) 2,000 units DAILY PO 03/09/17 09:00 03/12/17 10:26 (Zetia) 10 mg DAILY PO 03/09/17 09:00 03/12/17 10:26 (Lactulose Liq) 30 ml BID PO 03/08/17 21:00 03/12/17 10:26 (Buspar) 20 mg Q8HR PO 03/08/17 14:00 03/12/17 06:00 (Abilify) 15 mg DAILY PO 03/08/17 10:45 03/12/17 10:25 ([place] Thyroid) 60 mg DAILY PO 03/09/17 09:00 03/12/17 10:25 Family History Family History Mother and aunt with schizophrenia Social History Social History Drinks on weekend disabled occasion illicit drug use. Physical Exam Vital Signs Vital Signs Date Time Temp Pulse Resp B/P (MAP) Pulse Ox O2 Delivery O2 Flow Rate FiO2 03/12/17 06:00 98.3 77 16 114/83 (93) 97 03/11/17 17:22 98.0 94 16 109/73 (85) 99 Physical Exam GENERAL: Alert and oriented SKIN: Warm and dry. HEAD: Normocephalic. EYES: No scleral icterus. No injection or drainage. NECK: Supple, trachea midline. No JVD or lymphadenopathy. CARDIOVASCULAR: Regular rate and rhythm without murmurs, gallops, or rubs. RESPIRATORY: Breath sounds equal bilaterally. No accessory muscle use. GASTROINTESTINAL: Abdomen soft, non-tender, nondistended. MUSCULOSKELETAL: No cyanosis, or edema. BACK: Nontender without obvious deformity. No CVA tenderness. Laboratory Laboratory Tests Test 03/11/17 20:16 Free Thyroxine 0.52 Free Triiodothyronine (T3) pg/dL 1.62 Total Triiodothyronine 45 Thyroid Stimulating Hormone 3rd Gen 45.000 Result Diagram: 03/08/17 0856 Assessment and Plan Problem List: (1) Hyperlipemia ICD Codes: E78.5 - Hyperlipidemia, unspecified Status: Acute (2) Schizophrenia ICD Codes: F20.9 - Schizophrenia, unspecified Status: Acute (3) Elevated TSH ICD Codes: R94.6 - Abnormal results of thyroid function studies Status: Acute Assessment and Plan 03/12/17 Paranoid schizophrenia: Psych managing. Patient is alert and cooperative plan to discharge today to facility in [facility]. Hypothyroidism: On [place] thyroid at 30mg recommended to increase to dose to 60mg. TSH recheck in 6 weeks. Discussed at length with patient and he was not able to afford [place] thyroid. Recommended to continue [place] thyroid medication but if unable to afford at new facility then please use levothyroxine starting at 150 mcg daily. Please continue current medication regimen with above recommendations. I and the MACHINE MAINTENANCE SUPERVISOR have both examined this patient and reviewed this note and I agree with these findings and plan of care. Jeff Valenzuela DO Discussed Condition With Dr Díaz Problem Qualifiers (1) Schizophrenia: Qualified Codes: F20.0 - Paranoid schizophrenia Nola Morillo MACHINE MAINTENANCE SUPERVISOR Mar 12, 2017 12:53
--- NOTE | 2017-03-12 13:16 | PD.TTN ---
Patient Problems 1. Discharge planning 2. Medication compliance 3. Knowledge deficit 4. Lack of coping skills Progress Toward Goals Provider Present: Dr. Bipin Díaz Provider Input: Pt presents as stable on medication regiment and will be discharged today. Nurse(s) Present: Pat Rojas RN Nurse(s) Input: Pt presents with no issues on unit and is cooperative, appropriate and medication compliant. Psychiatric Counselors Present: DEUCE Syed Psych Therapist Input: Pt appears to have stabilized on medication regiment and with improved insight into condition. He is accepting assistance that FACT Team will offer and appears goal oriented. Pt will continue to improve coping skills related to stress management and when symptoms worsen. He is compliant with medication and recognizes the importance of ongoing compliance. Group Spec/RT/OT/WILL Present: Shiva Cadena OT Group Spec/RT/OT/WILL Input: Pt attends some groups and is appropriate. Discharge Plan [facility], Other Pt will be linked with FACT Team in [place] which will assist with placement and follow up. Documentation Scribe: DEUCE Syed Jonathan LMHC Mar 12, 2017 13:16
== END 2017-03-12 13:50 | disposition home or self-care (01) | DRG 885 ==
LOC: NEPC 15:33 → NEDA 20:26 → H270 21:15
PROVIDERS: ADMIT Psychiatry & Neurology Psychiatry; ATTEND Psychiatry & Neurology Psychiatry
DX: F20.0 Paranoid schizophrenia (principal); R45.851 Suicidal ideations; F15.10 Other stimulant abuse, uncomplicated; F43.10 Post-traumatic stress disorder, unspecified; E03.9 Hypothyroidism, unspecified; E78.5 Hyperlipidemia, unspecified; J45.909 Unspecified asthma, uncomplicated; Z79.899 Other long term (current) drug therapy; Z81.8 Family history of other mental and behavioral disorders; Z91.5 Personal history of self-harm; F41.8 Other specified anxiety disorders
CPT/HCPCS: 80048; 80053; 80061; 80164; 80307; 83036; 84439; 84443; 84480; 84481; 85025

== ENCOUNTER 2018-04-10 14:11 | Inpatient (IN) ==
--- NOTE | 2018-04-10 14:43 | ED ---
HPI General Chief Complaint: Psychiatric Symptoms Stated Complaint: Psych Eval Time Seen by Provider: 04/10/18 14:17 Source: patient and RN notes reviewed Mode of arrival: ambulatory Limitations: no limitations History of Present Illness HPI Narrative: 43-year-old male presents to the emergency department voluntarily for psychiatric evaluation. He reports long history of schizophrenia. He states he has not been taking his medications for the past 6 months however, he does pull out a bottle of Depakote and BuSpar from his back. He states he is not taking them as prescribed to "make them last". Patient states that his home was in [place], but being arrested up here and being on house arrest, he has lived with family new [place] cannot get into a new psychiatrist. He denies any current suicidal homicidal ideations. He states that he always hears voices, unchanged. He does admit to substance abuse, will not elaborate on this. Moderate severity. MD complaint: Reports other (hearing voices, schizophrenia) Duration: constant History of same: Yes Relieving factors: medication Exacerbating factors: other (not taking medications) Context: Reports not taking psychiatric medications Associated psychiatric symptoms: Reports auditory hallucinations Associated symptoms: Denies confusion, headache, shortness of breath, nausea, vomiting, syncope and insomnia Treatments prior to arrival: Reports none Related Data Home Medications Medication Instructions Recorded Confirmed buspirone 10 mg PO BID 04/10/18 04/10/18 divalproex 500 mg PO DAILY 04/10/18 04/10/18 ezetimibe 10 mg PO DAILY 04/10/18 04/10/18 fenofibrate 150 mg PO DAILY 04/10/18 04/10/18 levothyroxine 75 mcg PO DAILY 04/10/18 04/10/18 lovastatin 40 mg PO DAILY 04/10/18 04/10/18 Allergies Allergy/AdvReac Type Severity Reaction Status Date / Time haloperidol Allergy Severe Anaphylaxis Unverified 04/11/18 13:02 Review of Systems ROS: all other systems reviewed are negative [facility] Social History Social History Substance History: Active Abuse Second Hand Smoke Exposure: No Smoking Status: Current every day smoker Tobacco Type: Smokeless Tobacco How Often Do You Have a Drink Containing Alcohol: 2 to 4 times a month Recent Travel in [facility] within the Last 8 Weeks: No Recent Out of Country Travel within the Last 8 Weeks: No Immunization History Tetanus Immunization: Unsure Exam Narrative Exam Narrative: GENERAL: Well-nourished, well-developed male patient, afebrile. SKIN: Focused skin assessment warm/dry. HEAD: Normocephalic. Atraumatic. EYES: No scleral icterus. No injection or drainage. NECK: Supple, trachea midline. No JVD or lymphadenopathy. CARDIOVASCULAR: Regular rate and rhythm without murmurs, gallops, or rubs. RESPIRATORY: Breath sounds equal bilaterally. No accessory muscle use. Lung sounds are clear to auscultation. GASTROINTESTINAL: Abdomen soft, non-tender, nondistended. MUSCULOSKELETAL: No cyanosis, or edema. PSYCHIATRIC: No delusional thought processes. No hallucinations. Course Initial Documented Vital Signs Temperature 97.6 F 04/10/18 14:14 Pulse Rate 86 04/10/18 14:14 Respiratory Rate 20 04/10/18 14:14 Blood Pressure 167/96 H 04/10/18 14:14 Pulse Oximetry 96 04/10/18 14:14 Last Documented Vital Signs Temperature 98.7 F 04/11/18 13:05 Pulse Rate 82 04/11/18 13:05 Respiratory Rate 18 04/11/18 13:05 Blood Pressure 119/86 04/11/18 13:05 Pulse Oximetry 96 04/11/18 13:05 Medical Decision Making MDM Narrative Medical decision making narrative: 43 year old male presents to the emergency department voluntarily for psychiatric evaluation. CBC, CMP, TSH, Magnesium, UDS, alcohol level, valproic acid level are ordered and pending. CBC is unremarkable. CMP shows BUN 22, creatinine of 1.63. TSH is 51.000. Magnesium is 2.2. UDS is pending. Alcohol level is less than 3. Valproic Acid is 17. Patient is medically cleared for psychiatric screening and disposition. Medical Screen Exam Complete: Yes Emergency Medical Condition: Yes Differential Diagnosis Differential Diagnosis: schizophrenia vs. substance abuse vs. depression vs. anxiety Medical Records Medical records reviewed: Yes I reviewed the patient's medical records. Lab Data Result diagrams: 04/10/18 14:35 04/10/18 14:35 Lab Results 04/10/18 04/10/18 04/10/18 Range/Units 14:35 14:35 15:30 WBC 8.4 (4.0-11.0) th/mm3 RBC 4.84 (4.50-5.90) mil/mm3 Hgb 14.8 (13.0-17.0) gm/dL Hct 44.0 (39.0-51.0) % MCV 90.9 (80.0-100.0) fL MCH 30.7 (27.0-34.0) pg MCHC 33.7 (32.0-36.0) % RDW 16.9 (11.6-17.2) % Plt Count 275 (150-450) th/mm3 MPV 8.4 (7.0-11.0) fL Neut % (Auto) 70.7 H (16.0-70.0) % Lymph % (Auto) 16.7 (9.0-44.0) % [place] % (Auto) 9.1 H (0.0-8.0) % Eos % (Auto) 2.8 (0.0-4.0) % Baso % (Auto) 0.7 (0.0-2.0) % Neut # (Auto) 5.9 (1.8-7.7) th/mm3 Lymph # (Auto) 1.4 (1.0-4.8) th/mm3 [place] # (Auto) 0.8 (0.0-0.9) th/mm3 Eos # (Auto) 0.2 (0.0-0.4) th/mm3 Baso # (Auto) 0.1 (0.0-0.2) th/mm3 WBC Differential . Differential Comment Auto diff final Sodium 136 (136-145) meq/L Potassium 4.5 (3.5-5.1) meq/L Chloride 100 (98-107) meq/L Carbon Dioxide 29.9 (21.0-32.0) meq/L Anion Gap 6 (5-15) meq/L BUN 22 H (7-18) mg/dL Creatinine 1.63 H (0.60-1.30) mg/dL Estimated GFR 46 L (>89) mL/min Random Glucose 111 H (74-106) mg/dL Calcium 9.5 (8.5-10.1) mg/dL Magnesium 2.2 (1.5-2.5) mg/dL Total Bilirubin 0.6 (0.2-1.0) mg/dL AST 28 (15-37) U/L ALT 36 (12-78) U/L Alkaline Phosphatase 69 (45-117) U/L Total Protein 8.0 (6.4-8.2) g/dL Albumin 4.6 (3.4-5.0) g/dL TSH 51.000 H (0.358-3.740) uIU/mL Urine Opiates Screen Neg (Neg) Ur Barbiturates Screen Neg (Neg) Valproic Acid 17 L (50-100) mcg/mL Ur Amphetamines Screen Pos H (Neg) U Benzodiazepines Scrn Neg (Neg) Urine Cocaine Screen Neg (Neg) U Cannabinoids Screen Pos H (Neg) Serum Alcohol Less than 3 (0-5) mg/dL Discharge Plan Discharge Disposition Patient Disposition: 30 Still Patient Discharge Details Diagnosis: Chronic schizophrenia Physicians Team ED Provider: Laura Delong ED Midlevel Provider: Seble Patino Primary Care Provider: Primary Care Johanny Cole Attending Provider: Davis Wheeler Status ED Status: Left Department Discharge Information Discharge Date/Time: 04/11/18 12:00
[2018-04-10 15:02] LABS: Baso # (Auto) 0.1 th/mm3 (0.0-0.2); Baso % (Auto) 0.7 % (0.0-2.0); Eos # (Auto) 0.2 th/mm3 (0.0-0.4); Eos % (Auto) 2.8 % (0.0-4.0); Hemoglobin 14.8 gm/dL (13.0-17.0); Lymph # (Auto) 1.4 th/mm3 (1.0-4.8); Lymph % (Auto) 16.7 % (9.0-44.0); Mean Corpuscular HGB Conc 33.7 % (32.0-36.0); Mean Corpuscular Hemoglobin 30.7 pg (27.0-34.0); Mean Corpuscular Volume 90.9 fL (80.0-100.0); Mean Platelet Volume 8.4 fL (7.0-11.0); Mono # (Auto) 0.8 th/mm3 (0.0-0.9); Mono % (Auto) 9.1 % (0.0-8.0); Neut # (Auto) 5.9 th/mm3 (1.8-7.7); Neut % (Auto) 70.7 % (16.0-70.0); Platelet Count 275 th/mm3 (150-450); Red Blood Count 4.84 mil/mm3 (4.50-5.90); Red Cell Distribution Width 16.9 % (11.6-17.2); White Blood Count 8.4 th/mm3 (4.0-11.0)
[2018-04-10 15:16] LABS: Alanine Aminotransferase 36 U/L (12-78); Albumin 4.6 g/dL (3.4-5.0); Anion Gap 6 meq/L (5-15); Aspartate Aminotransferase 28 U/L (15-37); Blood Urea Nitrogen 22 mg/dL (7-18); Calcium 9.5 mg/dL (8.5-10.1); Carbon Dioxide 29.9 meq/L (21.0-32.0); Chloride 100 meq/L (98-107); Glomerular Filtration Rate 46 mL/min (>89); Glucose,Random 111 mg/dL (74-106); Magnesium 2.2 mg/dL (1.5-2.5); Potassium 4.5 meq/L (3.5-5.1); Sodium 136 meq/L (136-145)
[2018-04-10 15:25] LABS: Alkaline Phosphatase 69 U/L (45-117); Valproic Acid 17 mcg/mL (50-100)
[2018-04-10 16:12] LABS: Amphetamine Screen,Urine Pos (Neg); Barbiturate Screen,Urine Neg (Neg); Cannabinoid Screen,Urine Pos (Neg); Cocaine Screen,Urine Neg (Neg)
[2018-04-10 16:21] LABS: Opiate Screen,Urine Neg (Neg)
--- NOTE | 2018-04-11 11:07 | P.PNPSY ---
Patient seen at 1045 History of Present Illness HPI Narrative: 43-year-old, single, male with history of schizophrenia , amphetamine abuse who presents to the emergency department voluntarily requesting a psychiatric evaluation. Patient is reporting increase in auditory hallucinations, and altered sense of reality and fluidity with environment, increase in aggressive behavior, lability of emotions describing them as being out of control, voices that tell him what to do all the time. He states that he was arrested and placed on house arrest and fitted with with an ankle bracelet and therefore he cannot return to his home in [facility] for continued psychiatric care. For this reason he states that he stopped taking his psychiatric medications up until 2 days ago in which he visited his home and found some old bottles of Depakote and BuSpar and he began to take these medications. His VPA level here at the ED is 17. Current toxicology is positive for amphetamines. The patient is seen. He is irritable, only minimally cooperative, becomes easily agitated when I attempt to obtain further clinical information. When asked if he has been using substances he gets very angry and states" not today or yesterday and will not provide any other information". I have reviewed the patient's record. He has had several admissions to our inpatient psychiatric unit with the last being in February 2017 and usually with very similar presentation. Based on current clinical presentation the patient will be admitted for safety, stabilization, and to restart his psychiatric medications. .
[2018-04-11] MEDS ORDERED: Aluminum/Magnesium/Simethacone Susp 30 ML UDC PO PRN (11:14)
[2018-04-12] MEDS: Ezetimibe 10 MG Tablet PO SCH (08:11)
[2018-04-12] MEDS ORDERED: FENOFIBRATE 150 MG PO SCH (09:00)
[2018-04-12] MEDS ORDERED: Levothyroxine 75 MCG Tablet PO SCH (09:00)
[2018-04-12] MEDS ORDERED: Non-Formulary Drug (Lovastatin [Lovastatin] 40 MG) PO SCH (09:00)
[2018-04-12 09:21] LABS: Calcium 8.9 mg/dL (8.5-10.1); Carbon Dioxide 30.6 meq/L (21.0-32.0); Potassium 3.7 meq/L (3.5-5.1)
[2018-04-12 09:24] LABS: Chol/HDL Ratio 4.78 Ratio; HDL Cholesterol 37.4 mg/dL (40.0-60.0)
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
[2018-04-12] MEDS: Divalproex 500 MG ER Tablet PO SCH (11:36)
[2018-04-12] MEDS: Fenofibrate 145 MG Tablet PO SCH (11:36)
[2018-04-12] MEDS: Sertraline 50 MG Tablet PO SCH (11:36)
--- NOTE | 2018-04-12 13:50 | ECG ---
Date Performed: 04/12/2018 Time Performed: 12:41:45 PTAGE: 43 years EKG: Sinus rhythm NONSPECIFIC T-WAVE ABNORMALITY BORDERLINE ECG Since PREVIOUS TRACING , no significant change noted PREVIOUS TRACIN01/19/2017 09.43 DOCTOR: Xiang Sams Interpretating Date/Time 04/12/2018 13:46:53
--- NOTE | 2018-04-12 16:51 | P.CONIM ---
History of Present Illness Service: [facility] Consult date: 04/12/18 Reason for Consult: elevated TSH/Ear Pain Primary Care Provider: No Primary Care Physician Chief Complaint: right ear pain History of Present Illness: This is a 43-year-old male with past medical history of hypothyroidism status post thyroidectomy, hyperlipidemia polysubstance abuse, and schizophrenia presents to the emergency department voluntarily for psychiatric evaluation. He reports long history of schizophrenia. He states he has not been taking his medications for the past 6 months however, he does pull out a bottle of Depakote and BuSpar from his back. He states he is not taking them as prescribed to "make them last". Patient states that his home was in [place], but being arrested up here and being on house arrest, he has lived with family kar Magdaleno cannot get into a new psychiatrist. Patient admitted to the psychiatric unit for evaluation and management. Medicine team consulted for medical management. Patient seen and examined, laying in bed with the nurse. Patient stated he was supposed to be on a thyroid medication at 200 mg a day however he is unable to take it states that he does not have resources. However recently his grandma shared her medication to him for a 75 micrograms Synthroid dose he is taking 2 tablets every day. Patient stated he had a history of thyroidectomy in the past. Patient denies any headache or dizziness, denies any colds or sweats, denies any palpitation. Patient denies any chest pain or shortness of breath, abdominal pain, nausea, vomiting, diarrhea or constipation. Patient denies any fever or chills. Patient also complained of right ear pain, stated he usually had clogged ears. Review of Systems All other systems reviewed negative except as stated in HPI PMFSH - History History Provided By: Patient, Medical Record - Medical History Medical History: Medical History (Last Updated 04/12/18 @ 16:45 by NIRANJAN Shi) Anxiety Depression Hyperlipidemia PTSD (post-traumatic stress disorder) Schizophrenia - Surgical History Surgical History: Surgical History (Last Reviewed 04/12/18 @ 16:44 by NIRANJAN Shi) H/O thyroidectomy - Social History I have reviewed the patient's Social History: Yes - Tobacco History Second Hand Smoke Exposure: No Tobacco Use In Past 30 Days: Yes Smoking Status: Current every day smoker Tobacco Type: Smokeless Tobacco - Alcohol History How Often Do You Have a Drink Containing Alcohol: 2 to 4 times a month - Substance Use History Substance History: Active Abuse - Substance Use Type Methamphetamine Status: Early Remission Route Used: Inhalation Frequency: monthly Last Used: last month Reason for Use: Calm Down Marijuana Status: Active Route Used: Inhalation Frequency: daily Last Used: this week Reason for Use: Calm Down - Travel History Recent Travel in the [place] Within the Last 8 Weeks: No Recent Travel Out of the Country Within the Last 8 Weeks: No - Immunization History Tetanus Immunization: Unsure Hx Influenza Vaccine This Season: No Medications and Allergies Active Medications: Active Medications Al Hydrox/Mg Hydrox/Simethicone (Mag-Al Plus Susp Liq) 30 ml PO Q6H PRN PRN Reason: DYSPEPSIA Al Hydroxide/Mg Hydroxide (Milk Of Magnesia Liq) 30 ml PO Q12H PRN PRN Reason: Mild Constipation Aripiprazole (Abilify) 15 mg PO DAILY [facility] Last Admin: 04/12/18 11:36 Dose: 15 mg Divalproex Sodium (Depakote Er) 1,500 mg PO DAILY [facility] Last Admin: 04/12/18 11:36 Dose: 1,500 mg Ezetimibe (Zetia) 10 mg PO DAILY [facility] Last Admin: 04/12/18 08:11 Dose: 10 mg Fenofibrate (Tricor) 145 mg PO DAILY [facility] Last Admin: 04/12/18 11:36 Dose: 145 mg Hydroxyzine HCl (Atarax) 50 mg PO Q6H PRN PRN Reason: ANXIETY Levothyroxine Sodium (Synthroid) 150 mcg PO DAILY@0600 [facility] Melatonin (Melatonin) 5 mg PO HS PRN PRN Reason: INSOMNIA Pravastatin Sodium (Pravachol) 40 mg PO DAILY [facility] Last Admin: 04/12/18 08:12 Dose: 40 mg Sertraline HCl (Zoloft) 50 mg PO DAILY [facility] Last Admin: 04/12/18 11:36 Dose: 50 mg Allergies Allergy/AdvReac Type Severity Reaction Status Date / Time haloperidol Allergy Severe Anaphylaxis Unverified 04/11/18 13:02 Home Medications Medication Instructions Recorded Confirmed Type buspirone 10 mg PO BID 04/10/18 04/10/18 History divalproex 500 mg PO DAILY 04/10/18 04/10/18 History ezetimibe 10 mg PO DAILY 04/10/18 04/10/18 History fenofibrate 150 mg PO DAILY 04/10/18 04/10/18 History levothyroxine 75 mcg PO DAILY 04/10/18 04/10/18 History lovastatin 40 mg PO DAILY 04/10/18 04/10/18 History Exam Vital signs: Vital Signs 04/12/18 06:00 Temperature 97.3 F L Pulse Rate 77 Respiratory Rate 18 Blood Pressure 122/83 Pulse Oximetry 95 Intake & Output 04/11/18 04/12/18 04/12/18 18:59 06:59 18:59 Weight 122 kg Other: Date of Last Bowel Movement 04/12/18 Weight On Admission 122 kg Narrative: GENERAL: Well-developed, well-nourished, young male, in no apparent distress SKIN: Warm and dry. HEAD: Atraumatic. Normocephalic. EYES: Pupils equal and round. No scleral icterus. No injection or drainage. ENT: No nasal bleeding or discharge. Mucous membranes pink and moist. NECK: Trachea midline. No JVD. CARDIOVASCULAR: Regular rate and rhythm. RESPIRATORY: No accessory muscle use. Clear to auscultation. Breath sounds equal bilaterally. GASTROINTESTINAL: Abdomen obese soft, non-tender, nondistended. Hepatic and splenic margins not palpable. MUSCULOSKELETAL: Extremities without clubbing, cyanosis, or edema. No obvious deformities. NEUROLOGICAL: Awake and alert. No obvious cranial nerve deficits. Motor grossly within normal limits. Five out of 5 muscle strength in the arms and legs. Normal speech. PSYCHIATRIC: flat and irritable mood and affect; insight and judgment poor Results - Labs CBC & Chem 7: 04/10/18 14:35 04/12/18 08:33 Labs: Laboratory Results - last 24 hr 04/12/18 08:33 Sodium 139 Potassium 3.7 D Chloride 100 Carbon Dioxide 30.6 Anion Gap 8 BUN 19 H Creatinine 1.81 H Estimated GFR 41 L Random Glucose 177 H Calcium 8.9 Triglycerides 248 H Cholesterol 179 LDL Cholesterol, Calc 92 HDL Cholesterol 37.4 L Cholesterol/HDL Ratio 4.78 Assessment and Plan - Assessment (1) Hypothyroidism Code(s): E03.9 - Hypothyroidism, unspecified Status: Acute (2) History of thyroidectomy Code(s): Z98.890 - Other specified postprocedural states Status: Acute (3) Polysubstance abuse Code(s): F19.10 - Other psychoactive substance abuse, uncomplicated Status: Acute (4) Chronic schizophrenia Code(s): F20.9 - Schizophrenia, unspecified Status: Acute - Plan This is a 43-year-old male with past medical history of hypothyroidism status post thyroidectomy, hyperlipidemia polysubstance abuse, and schizophrenia presents to the emergency department voluntarily for psychiatric evaluation. Hypothyroidism History of thyroidectomy -TSH 51 -Check free T4 -Restart on home dose Synthroid Hyperlipidemia -Continue home medication, Zetia, fenofibrate, pravastatin -Monitor LFT and BMP -Low-cholesterol diet Chronic schizophrenia, acute Polysubstance abuse, acute -Management with psychiatric team -On Abilify, Depakote, Zyprexa and Zoloft Right ear pain Likely related to cerumen impaction -Start Debrox -Monitor response DVT prophylaxis: Patient ambulatory Code Status: full code Discussed Condition With: patient and nurse
[2018-04-12] MEDS ORDERED: Melatonin 5 MG Tablet PO PRN (21:00)
[2018-04-12] MEDS: Carbamide Peroxide 6.5% Otic Drops 15 ML Bottle EACH EAR SCH (21:13)
[2018-04-13] MEDS: Levothyroxine 150 MCG Tablet PO SCH (05:16)
[2018-04-13] MEDS: Fenofibrate 145 MG Tablet PO SCH (08:22)
[2018-04-13] MEDS: Carbamide Peroxide 6.5% Otic Drops 15 ML Bottle EACH EAR SCH ×2 (08:22→20:20)
[2018-04-13] MEDS: Ezetimibe 10 MG Tablet PO SCH (08:22)
[2018-04-13] MEDS: Divalproex 500 MG ER Tablet PO SCH (08:22)
[2018-04-13] MEDS: Sertraline 50 MG Tablet PO SCH (08:22)
[2018-04-13 09:06] LABS: Calcium 8.7 mg/dL (8.5-10.1); Carbon Dioxide 30.4 meq/L (21.0-32.0); Potassium 3.6 meq/L (3.5-5.1)
[2018-04-13 09:23] LABS: Hemoglobin A1c 6.2 % (4.3-6.0)
--- NOTE | 2018-04-13 10:01 | P.PNPSY ---
Subjective Remarks: Reviewed electronic medical records and discussed case with staff. Follow-up was conducted in his room. He is well known to this provider. He states that he has not been compliant with his medications which lead to his arrest. He endorses auditory hallucinations. He states that he just started taking medications and it takes a few days to feel better. He has a long history of hypothyroidism with a thyroidectomy and high cholesterol. Hospitalist have been consulted and following him for his medical concerns. He states he is extremely tired and trying to catch up on sleep. Eating well. Denies SI/HI. Review of Systems All other systems reviewed negative except as stated in HPI Mental Status Examination Appearance: Disheveled Consciousness: Alert Orientation: Person, Place, Situation Motor Activity: Normal gait Speech: Unremarkable Language: Adequate Fund of Knowledge: Adequate Attention and Concentration: Easily distracted Memory: Unremarkable Mood: Sad Affect: Flat Thought Process & Associations: Logical Thought Content: Hallucinations Hallucination Type: Auditory Delusion Type: Other (is very in tune to his environment and somewhat paranoid ) Insight: Fair Judgment: Impulsive Assessment and Plan - Assessment (1) Chronic schizophrenia Code(s): F20.9 - Schizophrenia, unspecified Status: Acute - Plan Plan: Estimated LOS: [] days Continue current treatment plan. Justification for Continued Inpatient Stay: Moving patient to a less restrictive environment may result in his decompensation.
--- NOTE | 2018-04-13 14:46 | P.PNIM ---
Subjective Interval history: Follow-up hypothyroidism with a history of thyroidectomy, hyperlipidemia polysubstance abuse, and schizophrenia. Patient seen and examined laying in bed, complains of some nausea and abdominal pain. Patient stated he did not eat lunch. Patient association with constipation or vomiting, patient stated he had a good bowel movement yesterday. Patient denies any fever or chills, headache or dizziness. Patient states that right ear feels better. Physical Exam Vital signs: Vital Signs 04/12/18 17:02 04/13/18 06:00 Temperature 98.7 F 97.3 F L Pulse Rate 82 93 H Respiratory Rate 18 18 Blood Pressure 135/79 111/85 Pulse Oximetry 97 97 Intake & Output 04/12/18 04/13/18 04/13/18 18:59 06:59 18:59 Other: Date of Last Bowel Movement 04/12/18 04/12/18 Narrative: GENERAL: Well-developed, well-nourished, young male, in no apparent distress SKIN: Warm and dry. HEAD: Atraumatic. Normocephalic. EYES: Pupils equal and round. No scleral icterus. No injection or drainage. ENT: No nasal bleeding or discharge. Mucous membranes pink and moist. Bilateral cerumen buildup NECK: Trachea midline. No JVD. CARDIOVASCULAR: Regular rate and rhythm. RESPIRATORY: No accessory muscle use. Clear to auscultation. Breath sounds equal bilaterally. GASTROINTESTINAL: Abdomen obese soft, non-tender on palpation, nondistended. Hepatic and splenic margins not palpable. MUSCULOSKELETAL: Extremities without clubbing, cyanosis, or edema. No obvious deformities. NEUROLOGICAL: Awake and alert. No obvious cranial nerve deficits. Motor grossly within normal limits. Five out of 5 muscle strength in the arms and legs. Normal speech. PSYCHIATRIC: flat and irritable mood and affect; insight and judgment poor Results - Labs CBC & Chem 7: 04/10/18 14:35 04/13/18 08:17 Laboratory Results - last 24 hr 04/12/18 04/13/18 08:33 08:17 Sodium 138 Potassium 3.6 Chloride 100 Carbon Dioxide 30.4 Anion Gap 8 BUN 16 Creatinine 1.85 H Estimated GFR 40 L Random Glucose 167 H Hemoglobin A1c 6.2 H Calcium 8.7 Assessment and Plan - Assessment (1) Hypothyroidism Code(s): E03.9 - Hypothyroidism, unspecified Status: Acute (2) History of thyroidectomy Code(s): Z98.890 - Other specified postprocedural states Status: Acute (3) Polysubstance abuse Code(s): F19.10 - Other psychoactive substance abuse, uncomplicated Status: Acute (4) Chronic schizophrenia Code(s): F20.9 - Schizophrenia, unspecified Status: Acute - Plan This is a 43-year-old male with past medical history of hypothyroidism status post thyroidectomy, hyperlipidemia polysubstance abuse, and schizophrenia presents to the emergency department voluntarily for psychiatric evaluation. Hypothyroidism History of thyroidectomy Noncompliance with medication due to inavailability of resources -TSH 51 -Restart on home dose Synthroid -Check TSH and free T4 Hyperlipidemia -Continue home medication, Zetia, fenofibrate, pravastatin -Monitor LFT and BMP -Low-cholesterol diet AK I on CKD -Likely related to polysubstance abuse -Creatinine 1.60 on admission, 1.81 today, baseline 1.35 -Avoid nephrotoxins -Encourage increase fluid intake -Monitor renal indicis Chronic schizophrenia, acute Polysubstance abuse, acute/amphetamines/cannabinoids -Management with psychiatric team -On Abilify, Depakote, Zyprexa and Zoloft Right ear pain Likely related to cerumen impaction -Start Debrox -Monitor response, pain improving Dyspepsia Nausea no vomiting -Add as needed Zofran -Add Protonix -Monitor response DVT prophylaxis: Patient ambulatory
[2018-04-13] MEDS: Pantoprazole Sodium 20 MG DR Tablet PO SCH (17:24)
[2018-04-14] MEDS: Levothyroxine 150 MCG Tablet PO SCH (07:01)
--- NOTE | 2018-04-14 08:51 | P.PNPSY ---
Subjective Remarks: Patient seen and examined with nurse. Chart reviewed. Case discussed with nursing staff. Patient was complaining of some nausea over the weekend, managed by the hospitalist. Patient has been somewhat guarded per nursing staff. On my examination today, the patient continues to complain of some nausea but no emesis. He says that he slept fairly well last night. 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 He denies any suicidal or homicidal ideation presently affect is somewhat blunted. Denies side effects from medications. No other physical complaints. Vital Signs Temp Pulse Resp BP Pulse Ox 04/14/18 06:00 97.9 F 70 16 127/78 100 04/13/18 17:00 97.8 F 84 18 126/75 95 Intake and Output 04/13/18 04/14/18 04/14/18 22:59 06:59 14:59 Other: Date of Last Bowel Movement 04/12/18 Weight 121.7 kg Laboratory Results - last 24 hr 04/12/18 04/13/18 08:33 08:17 Sodium 138 Potassium 3.6 Chloride 100 Carbon Dioxide 30.4 Anion Gap 8 BUN 16 Creatinine 1.85 H Estimated GFR 40 L Random Glucose 167 H Hemoglobin A1c 6.2 H Calcium 8.7 Labs reviewed. GFR stable. Review of Systems All other systems reviewed negative except as stated in HPI Mental Status Examination Appearance: Disheveled Consciousness: Alert Orientation: Person, Place, Situation Motor Activity: Other (No motor abnormalities noted) Speech: Unremarkable Language: Adequate Fund of Knowledge: Adequate Attention and Concentration: Adequate Memory: Unremarkable Mood: Other (Calm) Affect: Blunt Thought Process & Associations: Intact, Logical Thought Content: Hallucinations Hallucination Type: Auditory Delusion Type: None Suicidal Ideation: No Suicidal Plan: No Suicidal Intention: No Homicidal Ideation: No Homicidal Plan: No Homicidal Intention: No Insight: Fair Judgment: Impulsive Assessment and Plan - Assessment (1) Chronic schizophrenia Code(s): F20.9 - Schizophrenia, unspecified Status: Acute (2) Polysubstance abuse Code(s): F19.10 - Other psychoactive substance abuse, uncomplicated Status: Acute - Plan Plan: Continue Abilify as ordered. To consider further titration of this agent. Continue Depakote as ordered with plans to obtain a Depakote level later in the week. Continue Zoloft as ordered. I have discussed with the patient that this may be contributing to his nausea, as this is a not uncommon transient side effect of SSRI medications. Hospitalist input noted and appreciated. I have encouraged participation in groups and unit activities. Continue other medications and care as ordered. Continue to monitor on the inpatient unit. Justification for Continued Inpatient Stay: Impairments in reality construction. Risk for decompensation and less restrictive environment. Discharge Planning: Pending psychiatric stabilization. Request Healthcare Surrogate/Guardian Advocate?: No
[2018-04-14] MEDS: Carbamide Peroxide 6.5% Otic Drops 15 ML Bottle EACH EAR SCH ×2 (09:04→21:17)
[2018-04-14] MEDS: Ezetimibe 10 MG Tablet PO SCH (09:21)
[2018-04-14] MEDS: Sertraline 50 MG Tablet PO SCH (09:21)
[2018-04-14] MEDS: Divalproex 500 MG ER Tablet PO SCH (09:22)
[2018-04-14] MEDS: Fenofibrate 145 MG Tablet PO SCH (09:22)
[2018-04-14] MEDS: Pantoprazole Sodium 20 MG DR Tablet PO SCH (09:22)
[2018-04-14 09:58] LABS: Free T4 (Free Thyroxine) 0.74 ng/dL (0.76-1.46); Thyroid Stimulating Hormone 46.7 uIU/mL (0.358-3.740)
--- NOTE | 2018-04-14 14:49 | P.PNIM ---
Subjective Interval history: Follow-up hypothyroidism with a history of thyroidectomy, hyperlipidemia polysubstance abuse, and schizophrenia. Patient seen and examined laying in bed, denies any complaint of nausea or vomiting. Patient states that he did not have any nausea today. Also stated right ear feels better. Patient denies any headache or dizziness, denies any chest pain or shortness of breath, denies any abdominal pain, nausea, vomiting, diarrhea or constipation. Patient denies any fever or chills. Discussed the patient that he needs to continue taking medications at home upon discharge, education on compliance with medications especially the thyroid medication. Patient agreed and verbalized understanding. Discussed the co-pay is $4 at [facility] And patient is aware Nurse denies any acute complaints overnight Physical Exam Vital signs: Vital Signs 04/13/18 17:00 04/14/18 06:00 Temperature 97.8 F 97.9 F Pulse Rate 84 70 Respiratory Rate 18 16 Blood Pressure 126/75 127/78 Pulse Oximetry 95 100 Intake & Output 04/13/18 04/14/18 04/14/18 18:59 06:59 18:59 Weight 121.7 kg Other: Date of Last Bowel Movement 04/12/18 04/12/18 Narrative: GENERAL: Well-developed, well-nourished, young male, in no apparent distress SKIN: Warm and dry. HEAD: Atraumatic. Normocephalic. EYES: Pupils equal and round. No scleral icterus. No injection or drainage. ENT: No nasal bleeding or discharge. Mucous membranes pink and moist. Bilateral cerumen buildup NECK: Trachea midline. No JVD. CARDIOVASCULAR: Regular rate and rhythm. RESPIRATORY: No accessory muscle use. Clear to auscultation. Breath sounds equal bilaterally. GASTROINTESTINAL: Abdomen obese soft, non-tender on palpation, nondistended. Hepatic and splenic margins not palpable. MUSCULOSKELETAL: Extremities without clubbing, cyanosis, or edema. No obvious deformities. NEUROLOGICAL: Awake and alert. No obvious cranial nerve deficits. Motor grossly within normal limits. Five out of 5 muscle strength in the arms and legs. Normal speech. PSYCHIATRIC: flat and irritable mood and affect; insight and judgment poor Results - Labs CBC & Chem 7: 04/10/18 14:35 04/13/18 08:17 Laboratory Results - last 24 hr 04/14/18 08:50 TSH 46.700 H Free T4 0.74 L Assessment and Plan - Assessment (1) Hypothyroidism Code(s): E03.9 - Hypothyroidism, unspecified Status: Acute (2) History of thyroidectomy Code(s): Z98.890 - Other specified postprocedural states Status: Acute (3) Polysubstance abuse Code(s): F19.10 - Other psychoactive substance abuse, uncomplicated Status: Acute (4) Chronic schizophrenia Code(s): F20.9 - Schizophrenia, unspecified Status: Acute - Plan This is a 43-year-old male with past medical history of hypothyroidism status post thyroidectomy, hyperlipidemia polysubstance abuse, and schizophrenia presents to the emergency department voluntarily for psychiatric evaluation. Hypothyroidism History of thyroidectomy Noncompliance with medication due to inavailability of resources -TSH 51 -Restart on home dose Synthroid -Check TSH and free T4, trending down -Follow-up with PCP upon discharge, recheck TSH and T4 in 4 months results to PCP Hyperlipidemia -Continue home medication, Zetia, fenofibrate, pravastatin -Monitor LFT and BMP -Low-cholesterol diet AK I on CKD -Likely related to polysubstance abuse -Creatinine 1.60 on admission, 1.81 today, baseline 1.35 -Avoid nephrotoxins -Encourage increase fluid intake -Monitor renal indicis Chronic schizophrenia, acute Polysubstance abuse, acute/amphetamines/cannabinoids -Management with psychiatric team -On Abilify, Depakote, Zyprexa and Zoloft Right ear pain Likely related to cerumen impaction -Start Debrox -Monitor response, pain improving Dyspepsia Nausea no vomiting -Add as needed Zofran -Add Protonix -Monitor response, symptoms improving, no nausea no vomiting the day DVT prophylaxis: Patient ambulatory Code Status: Full code Discussed Condition With: Patient and nurse Discharge Planning: Patient medically clear. Medicine team will sign off however available as necessary.
[2018-04-15] MEDS: Levothyroxine 150 MCG Tablet PO SCH (05:30)
[2018-04-15] MEDS: Pantoprazole Sodium 20 MG DR Tablet PO SCH (08:23)
[2018-04-15] MEDS: Sertraline 50 MG Tablet PO SCH (08:23)
[2018-04-15] MEDS: Divalproex 500 MG ER Tablet PO SCH (08:23)
[2018-04-15] MEDS: Fenofibrate 145 MG Tablet PO SCH (08:24)
[2018-04-15] MEDS: Ezetimibe 10 MG Tablet PO SCH (08:24)
[2018-04-15] MEDS: Carbamide Peroxide 6.5% Otic Drops 15 ML Bottle EACH EAR SCH ×2 (08:40→20:19)
--- NOTE | 2018-04-15 09:50 | P.TTN ---
- Patient Problems Problems: 1. Discharge planning 2. Medication compliance 3. Knowledge deficit 4. Lack of coping skills - Progress Toward Goals Provider Present: Dr. Bipin Díaz (Suspect malingering to avoid legal consequences, Dr. Díaz will assess the need to remain for further stabilization.) Psychiatric Counselors Present: Yoandy Guzmán Jr., [facility] (Counselor will meet with the patient to discuss a safe discharge plan.) Group Spec/RT/OT/WILL Present: WALESKA Ramos (Patient attends select groups.) - Documentation Teaching Recipient: Patient
[2018-04-15 10:24] LABS: Calcium 9.2 mg/dL (8.5-10.1); Carbon Dioxide 35.2 meq/L (21.0-32.0); Potassium 4.1 meq/L (3.5-5.1)
--- NOTE | 2018-04-15 11:16 | P.PNPSY ---
Subjective Remarks: Patient seen and examined with nurse. Chart reviewed. Case discussed with nursing staff. Case discussed in treatment team. On my examination today, the patient says that he is feeling tired. He complains of some nausea. Patient does have Zofran as needed ordered by the hospitalist, and I have asked that staff provide this the patient. He denies SI or HI. Denies AVH. No psychotic material verbalized. He denies side effects from medications. No physical complaints. Vital Signs Temp Pulse Resp BP Pulse Ox 04/15/18 06:06 97.5 F L 94 H 18 125/61 95 04/14/18 15:55 98.6 F 99 H 18 108/80 97 Intake and Output 04/14/18 04/15/18 04/15/18 22:59 06:59 14:59 Other: Date of Last Bowel Movement 04/12/18 Laboratory Results - last 24 hr 04/15/18 09:40 Sodium 140 Potassium 4.1 Chloride 100 Carbon Dioxide 35.2 H Anion Gap 5 BUN 18 Creatinine 1.90 H Estimated GFR 39 L Random Glucose 136 H Calcium 9.2 Labs reviewed. GFR stable. Review of Systems All other systems reviewed negative except as stated in HPI Mental Status Examination Appearance: Appropriate Consciousness: Alert Orientation: x4 Motor Activity: Other (No abnormal motor movements noted) Speech: Unremarkable Language: Adequate Fund of Knowledge: Adequate Attention and Concentration: Adequate Memory: Unremarkable Mood: Appropriate Affect: Blunt Thought Process & Associations: Intact, Logical, Linear Thought Content: Appropriate Hallucination Type: None Delusion Type: None Suicidal Ideation: No Suicidal Plan: No Suicidal Intention: No Homicidal Ideation: No Homicidal Plan: No Homicidal Intention: No Mental Status Exam Remarks: Insight and judgment are fair. Assessment and Plan - Assessment (1) Chronic schizophrenia Code(s): F20.9 - Schizophrenia, unspecified Status: Acute (2) Polysubstance abuse Code(s): F19.10 - Other psychoactive substance abuse, uncomplicated Status: Acute - Plan Plan: Continue current psychotropics as ordered. Check a Depakote and ammonia level as well as LFTs in the morning. Continue to monitor on the inpatient unit. Continue other medications and care as ordered. Justification for Continued Inpatient Stay: Risk for decompensation and less restrictive environment. Discharge Planning: Possible discharge tomorrow, Saturday. Request Healthcare Surrogate/Guardian Advocate?: No
[2018-04-16] MEDS: Levothyroxine 150 MCG Tablet PO SCH (05:23)
[2018-04-16 06:42] LABS: Albumin 4.1 g/dL (3.4-5.0)
[2018-04-16 06:43] LABS: Total Protein 7.2 g/dL (6.4-8.2)
[2018-04-16] MEDS: Ezetimibe 10 MG Tablet PO SCH (09:02)
[2018-04-16] MEDS: Pantoprazole Sodium 20 MG DR Tablet PO SCH (09:02)
[2018-04-16] MEDS: Fenofibrate 145 MG Tablet PO SCH (09:02)
[2018-04-16] MEDS: Divalproex 500 MG ER Tablet PO SCH (09:02)
[2018-04-16] MEDS: Sertraline 50 MG Tablet PO SCH (09:02)
[2018-04-16] MEDS: Carbamide Peroxide 6.5% Otic Drops 15 ML Bottle EACH EAR SCH ×2 (09:03→09:41)
--- NOTE | 2018-04-16 09:59 | P.DSPSY ---
Psychiatry Discharge Summary Inpatient Psychiatric care?: Yes Advance Directives: No Mental Health Advance Directive: No Health Care Proxy: No - Admission Admission Date: April 11, 2018 11:13 - Admission Diagnosis (1) Chronic schizophrenia Code(s): F20.9 - Schizophrenia, unspecified (2) Polysubstance abuse Code(s): F19.10 - Other psychoactive substance abuse, uncomplicated Brief History: Mr. Martinez is a 43-year-old male with a chart history of schizophrenia, who presents voluntarily to the emergency department for psychiatric evaluation. He told the ED provider that he had not been taking his psychotropic medications for the last 6 months, although he did discover a bottle of Depakote and BuSpar, and has been taking them recently. The patient was seen by the psychiatric nurse practitioner in the ED, who elected to admit the patient. Reviewing the electronic medical record, I note the patient was admitted most recently here under my care in 02/2017, at which time he was stabilized on Abilify/Abilify maintena, Depakote ER, Zoloft and BuSpar. The patient seen and examined with nurse. Chart reviewed. Case discussed with nursing staff. The patient reportedly complaining of some right ear pain. No behavioral issues noted. On my examination today, the patient says that he has been nonadherent with psychotropic medications for the last year or so. He has received medications briefly during recent hospitalizations, (see below) but he has not maintained sustained medication adherence. 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 He denies any violent command auditory hallucinations directed against people on the unit, and denies any suicidal or homicidal ideation, intent or plan on the inpatient unit. He also says that he experiences what he calls "advisory voices." He also has visual hallucinations of color change and tracers. He does not appear internally stimulated at present. He endorses some paranoia directed against the police. No mood symptoms reported. There is a somewhat manipulative quality to the patient's presentation, and he, in particular, insists that he should not have been taken to [facility], when he was incarcerated for domestic battery charges, insisting that this was secondary to a mental illness. There may be a component of trying to build a case of mental illness in order evade legal issues. Remainder of psychiatric ROS is negative. No acute physical complaints. Tobacco Use In Past 30 Days: Yes How Often Do You Have a Drink Containing Alcohol: 2 to 4 times a month Hospital Course: Patient was admitted to a locked, inpatient psychiatric unit. A general medical consultation was obtained. Appropriate precautions were in place throughout patient's hospital stay. Patient was seen and examined on the unit by psychiatry and also visited by counselor. Psychotropic medications were adjusted. Patient had improvement in presenting psychiatric symptomatology during the course of his hospital stay. There was no evidence of any suicidality or homicidality on the inpatient unit. There was no evidence of self care deficit. On the day of discharge: Patient seen and examined with nurse. Chart reviewed. Case discussed with nursing staff. No behavioral issues noted overnight. Case discussed with counselor. On my examination today, the patient is requesting discharge from the inpatient psychiatric unit. He says that his hotel clerk is arranging an emergency court case regarding his domestic battery charges and he needs to follow up with this. He denies any suicidal or homicidal ideation, intent or plan. He denies any ideation towards suicide by blueprinting and photocopy supervisor. His mood is good, and I can elicit no depressive or hypomanic/manic symptoms. He denies any audiovisual hallucinations. He denies any command auditory hallucinations to hurt self or others. I can elicit no delusional material. He denies any side effects from medications. We review his mildly subtherapeutic Depakote level. I did offer to titrate patient's Depakote on discharge, but the patient wishes to continue with current dose as ordered. I will order a follow-up Depakote level to monitor therapy after discharge. We also discussed patient's elevated ammonia level. There is no evidence of hyperammonemic encephalopathy at present. The patient does wish to return to lactulose, which he has used in the past for hyperammonemia, and I have prescribed this on discharge with a follow-up ammonia level. Patient was offered long-acting injectable Abilify Maintena, but he has declined this agent. Patient reports that his nausea is abating, and he has no other physical complaints. Suicide and violence risk assessment on day of discharge both suggest lower imminent risk from mental illness, and the patient's level of function is adequate for outpatient care. The patient does not meet criteria for involuntary psychiatric hospitalization at this time. He is requesting discharge from the inpatient psychiatric unit today, and I have no basis to retain him over his objection. He will be discharged today with psychiatric follow-up as arranged by the counselor. Patient is also to follow-up with primary care. I have ordered a follow-up TSH and free T4 as recommended by the hospitalist. Patient to abstain from substances of abuse. I have counseled the patient to return to the psychiatric emergency room for any concerning symptoms as part of a general safety plan. - Discharge Discharge Date: 04/16/18 - Discharge Diagnosis (1) Chronic schizophrenia Diagnosis: Principal (Stabilized) Code(s): F20.9 - Schizophrenia, unspecified Status: Acute (2) Polysubstance abuse Diagnosis: Secondary Code(s): F19.10 - Other psychoactive substance abuse, uncomplicated Status: Chronic Discharge Disposition: Home - Discharge Instructions Discharge Diet: Regular Diet Activities You Can Perform: Weight Bearing As Tolerat - Discharge Time <= 30 minutes Mental Status Examination Appearance: Appropriate Consciousness: Alert Orientation: x4 Motor Activity: Other (No tremor, no dystonia, no dyskinesia, no other motor abnormalities noted.) Speech: Unremarkable Language: Adequate Fund of Knowledge: Adequate Attention and Concentration: Adequate Memory: Unremarkable Mood: Appropriate Affect: Appropriate Thought Process & Associations: Intact, Logical, Goal directed, Linear Thought Content: Appropriate Hallucination Type: None Delusion Type: None Suicidal Ideation: No Suicidal Plan: No Suicidal Intention: No Homicidal Ideation: No Homicidal Plan: No Homicidal Intention: No Mental Status Exam Remarks: Insight and judgment are perhaps fair. Discharge/Advance Care Plan - Results Vital Signs: Last Vital Signs Temp 98.1 F 04/16/18 05:41 Pulse 70 04/16/18 05:41 Resp 18 04/16/18 05:41 BP 133/82 04/16/18 05:41 Pulse Ox 94 L 04/16/18 05:41 Lab Results: Abnormal Lab Results 04/15/18 04/16/18 04/16/18 09:40 06:04 06:04 Sodium 140 Potassium 4.1 Chloride 100 Carbon Dioxide 35.2 H Anion Gap 5 BUN 18 Creatinine 1.90 H Estimated GFR 39 L Random Glucose 136 H Calcium 9.2 Total Bilirubin 0.5 Direct Bilirubin 0.2 Indirect Bilirubin 0.3 AST 16 ALT 23 Alkaline Phosphatase 58 Ammonia 60 H Total Protein 7.2 D Albumin 4.1 Valproic Acid 42 L Laboratory Results Hemoglobin A1c 6.2 % (4.3-6.0) H 04/12/18 08:33 Triglycerides 248 mg/dL (42-150) H 04/12/18 08:33 Cholesterol 179 mg/dL (120-200) 04/12/18 08:33 LDL Cholesterol, Calc 92 mg/dL (0-99) 04/12/18 08:33 HDL Cholesterol 37.4 mg/dL (40.0-60.0) L 04/12/18 08:33 TSH 46.700 uIU/mL (0.358-3.740) H 04/14/18 08:50 Free T4 0.74 ng/dL (0.76-1.46) L 04/14/18 08:50 Valproic Acid 42 mcg/mL (50-100) L 04/16/18 06:04 Summary of Procedures: None done. Pending Results: None - Medications Number of antipsychotic medications at discharge: 1 - Discharge Care Plan Goals to Promote Your Health: * To prevent worsening of your condition and complications * To maintain your health at the optimal level Directions to Meet Your Goals: Take your medications as prescribed Follow your dietary instruction Follow activity as directed Keep your appointments as scheduled Take your immunizations and boosters as scheduled If your symptoms worsen call your PCP, if no PCP go to Urgent Care Center or Emergency Room For 10/12 questions related to your inpatient stay or results of tests pending at discharge, please contact Dr. Tiago Díaz MD at Smoking is Dangerous to Your Health. Avoid second hand smoking
== END 2018-04-16 12:40 | disposition home or self-care (01) ==
LOC: NEPD 14:11 → NEDA 04-11 11:13 → H270 04-11 12:01
PROVIDERS: ADMIT Psychiatry & Neurology Psychiatry; ATTEND Psychiatry & Neurology Psychiatry